=== PATIENT | female | born 1975 | race Caucasian/White ===

== ENCOUNTER 2022-07-29 12:59 | Emergency (ER) | payer OTHER, SELFPAY ==
--- NOTE | ~2022-07-29 | XR_ITS ---
EXAMINATION: XR chest 2V DATE: 07/29/2022 13:33 INDICATION: Cough. TECHNIQUE: Frontal and lateral views of the chest were obtained. COMPARISON: None. FINDINGS: The chest demonstrates clear lungs without pneumonia, pleural effusion, or pneumothorax. Th e heart size is normal. Surgical clips in the right upper quadrant are likely from cholecystectomy. IMPRESSION: 1. No acute cardiopulmonary disease. Reviewed, dictated and finalized at location A. [employer]
[2022-07-29 13:09] VITALS: BP 144/76; PULSE 94; RESP 16; TEMP 36.5; O2SAT 98
--- NOTE | 2022-07-29 13:26 | ED.URI ---
HPI - URI/Sore Throat General Chief Complaint: Upper Respiratory Infection Stated Complaint: cold Time Seen by Provider: 07/29/22 13:26 Source: patient and RN notes reviewed Mode of arrival: ambulatory Limitations: no limitations History of Present Illness HPI Narrative: 47-year-old female presented for complaint of cough for 1 week and chest congestion worsening last night. Reports temperature was 99.4?. She feels shortness of breath with exertion. She denies chest pain, palpitations, nausea, vomiting diarrhea, fevers or chills. She endorses sick contacts. She has not taking anything for symptoms. Patient states that she has a lung nodule but unsure the location. She is a former smoker. MD elicited complaint: cough Related Data Home Medications Medication Instructions Recorded Confirmed amlodipine 5 mg tablet 5 mg PO DAILY 07/29/22 07/29/22 aspirin 81 mg chewable tablet 81 mg PO DAILY 07/29/22 07/29/22 atorvastatin 40 mg tablet 40 mg PO DAILY 07/29/22 07/29/22 ezetimibe 10 mg tablet 10 mg PO DAILY 07/29/22 07/29/22 metformin 500 mg tablet 500 mg PO BID 07/29/22 07/29/22 metoprolol tartrate 25 mg tablet 25 mg PO BID 07/29/22 07/29/22 pantoprazole 40 mg tablet,delayed 40 mg PO DAILY 07/29/22 07/29/22 release Allergies Allergy/AdvReac Type Severity Reaction Status Date / Time acetaminophen [From NyQuil] Allergy Unknown Hives Verified 07/29/22 13:28 dextromethorphan Allergy Unknown Hives Verified 07/29/22 13:28 [From NyQuil] doxylamine [From NyQuil] Allergy Unknown Hives Verified 07/29/22 13:28 pseudoephedrine [From NyQuil] Allergy Unknown Hives Verified 07/29/22 13:28 Review of Systems Review of Systems: per HPI Exam Narrative: GENERAL: Ill-appearing, nontoxic EYES: PERRLA, conjunctivae clear ENT: Mucous membranes moist. TMs pearly scales with dull light reflex bilaterally; no tragal tenderness. Oropharynx erythematous without lesions or exudate CHEST: Clear to auscultation, breath sounds equal. No wheezing, rhonchi, rales, or stridor. No respiratory distress, speaks in full sentences. HEART: Regular rate and rhythm. No murmur heard. SKIN: Warm, dry, no rash. NEURO: Alert and oriented x3. PSYCH: Normal mood and affect Course Course Emergency Course: Patient is aware of diagnosis, understands and agrees to treatment plan. Anticipatory guidance given. Patient agrees to follow-up as directed and is aware of reasons to seek care at the emergency department. Portions of this record may have been created with voice recognition software Level of Care: Express Care Visit Vital Signs Vital signs: Vital Signs Temperature 97.7 F 07/29/22 13:09 Pulse Rate 94 07/29/22 13:09 Respiratory Rate 16 07/29/22 13:09 Blood Pressure 144/76 H 07/29/22 13:09 Pulse Oximetry 98 07/29/22 13:09 Oxygen Delivery Room Air 07/29/22 13:09 Temperature 97.7 F 07/29/22 13:09 Pulse Rate 94 07/29/22 13:09 Respiratory Rate 16 07/29/22 13:09 Blood Pressure 144/76 H 07/29/22 13:09 Pulse Oximetry 98 07/29/22 13:09 Oxygen Delivery Room Air 07/29/22 13:09 reviewed MDM - URI/Sore Throat MDM Narrative Medical decision making narrative: Results of chest x-ray reviewed with patient. Symptoms present x1 week. Advised supportive measures and signs/symptoms to go to the ER. Pt is appropriate for outpt treatment and f/u. Differential Diagnosis Differential diagnosis: Likely upper respiratory infection, sinusitis and viral infection Imaging Data Radiologist's impression: Patient: Angeles Chung : 1975 MR#: [id number] Age/Sex: 47 / F Acct:[id number] Loc: [facility]? ? ADM Date: 07/29/22Attending Dr: Ordering Physician: Abbie Porter APRN Date of Service: 07/29/22 Procedure(s): XR chest 2V Accession Number(s): [id number] cc: Abbie Porter APRN; Shruthi, Nav Craft MD~ EXAMINATION: XR chest 2V DATE: 07/29/2022 13:33 INDICATION: Cough. TECHNIQUE
== END 2022-07-29 13:53 | disposition home or self-care (01) ==
PROVIDERS: Emergency Provider Nurse Practitioner Family; PCP Internal Medicine
DX: J06.9 Acute upper respiratory infection, unspecified (principal); Z87.891 Personal history of nicotine dependence; Z79.82 Long term (current) use of aspirin
CPT/HCPCS: 71046; 99213; G0463

== ENCOUNTER 2025-02-01 17:42 | Emergency (ER) | payer OTHER, SELFPAY ==
[2025-02-01 17:44] VITALS: BP 161/88; PULSE 87; RESP 20; TEMP 36.6; O2SAT 100
--- OUTSIDE RECORDS SUMMARY | 2025-02-01 17:44 | XMS_ITS | Encounter Summary ---
Author Organization [facility] Address [address] [facility] [place] [address] Phone Care Team Providers Care Electronic Court Recorder Name Role Phone Nav Hawkins MD Primary Care Provider [phone] Phillip Sampson MD Unavailable Vivien Wilson MD Unavailable Shefali Rouse APRN, CNP Unavailable [phone] Lencho Vee MD Unavailable [phone] Reason for Visit * Reason Onset Date Comments Ear Pain 02/01/2025 Encounter Details Date Type Department Care Team (Late st Contact Info) Description 02/01/2025 Nurse Triage [facility] [address] [place] [address] Nav Hawkins MD [address] [address] Ear Pain Social History Tobacco Use Types Packs/Day Years Used Date Smoking Tobacco: Former Cigarettes 0.5 25 0 04/20/1991 - 04/20/2016 Smokeless Tobacco: Never Alcohol Use Standard Drinks/Week Comments No 0 (1 standard drink = 0.6 oz pur e alcohol) [facility] Utilities Answer Date Recorded In the past 12 months has th e electric, gas, oil, or water company threatened to shut off services in your home? No 11/03/2024 Social Connection and Isolation Panel Answer Date Recorded In a typical week, how many times do you talk on the phone with family, friends, or neighbors? More than three times a week 11/03/2024 How often do you get togethe r with friends or relatives? Twice a week 11/03/2024 How often do you attend chur or druze services? More than 4 times per year 11/03/2024 Do you belong to any clubs o r organizations such as episcopal groups, unions, fraternal or athletic groups, or school groups? Yes 11/03/2024 How often do you attend meet ings of the clubs or organizations you belong to? More than 4 times per year 11/03/2024 Are you , , di vorced, , never , or living with a partner? 11/03/2024 AUDIT-C Answer Date Recorded Q1: How often do you have a drink containing alcohol? Never 11/03/2024 Q2: How many drinks containi ng alcohol do you have on a typical day when you are drinking? Patient does not drink Q3: How often do you have si x or more drinks on one occasion? Never 11/03/2024 Overall Financial Resource Strain (CARDIA) Answe r Date Recorded How hard is it for you to pa y for the very basics like food, housing, medical care, and heating? Not very hard 11/03/2024 PHQ-2 Answer Date Recorded Total Score - Questions 1-9 0 03/28 [facility]ational Stress Questionnaire Answer Date Recorded Do you feel stress - tense, restless, nervous, or anxious, or unable to sleep at night because your mind is troubled all the time - these days? Only a little 11/03/2024 Exercise Vital Sign Answer Date Recorde d On average, how many days pe r week do you engage in moderate to strenuous exercise (like a brisk walk)? 3 days 11/03/2024 On average, how many minutes do you engage in exercise at this level? 20 min 11/03/2024 Hunger Vital Sign Answer Date Recorded Within the past 12 months, y ou worried that your food would run out before you got the money to buy more. Never true 11/04/19 25 Within the past 12 months, t he food you bought just didn't last and you didn't have money to get more. Never true 11/03/2024 PRAPARE - Transportation Answer Date Re corded In the past 12 months, has l ack of transportation kept you from medical appointments or from getting medications? No 10/25 In the past 12 months, has l ack of transportation kept you from meetings, work, or from getting things needed for daily living? No 11/03/2024 Housing Stability Vital Sign Answer Geraldo e Recorded In the last 12 months, was t here a time when you were not able to pay the mortgage or rent on time? No 10/22/2023 In the last 12 months, how many places have you lived? 1 10/22/2023 In the last 12 months, was t here a time when you did not have a steady place to sleep or slept in a detention (including now)? No 10/22/2023 Housing Stability Vital Sign Answer Geraldo e Recorded In the last 12 months, was t here a time when you were not able to pay the mortgage or rent on time? No 11/03/2024 In the past 12 months, how m any times have you moved where you were living? 0 11/03/2024 At any time in the past 12 m [facility], were you homeless or living in a detention (including now)? No 11/03/2024 Education Answer Date Recorded What is the highest level of school you have completed or the highest degree you have received? Bachelor's degree (e.g., BA, AB, BS) 04/24/2020 Sexually Active Control Partners Comments Yes Comments No Sex and Gender Information Value Date Recorded Sex Assigned at Female 03/10/2023 8:42 AM CDT Legal Sex Female 10:52 PM CDT Gender Identity Female 03/10/2023 8:42 AM CDT Sexual Orientation Straight 11/14/2024 1: 15 PM CDT documented as of this encounter Miscellaneous Notes * Telephone Encounter - Lilia Newman RN - 02/01/2025 4:21 PM CDT SITUATION: Right Ear Pain, Facial Swelling BACKGROUND: Patients contacting PCP office. Person contacting is listed on current personal assisted sales representative designee form on file. ASSESSMENT: Symptom Description / Location: Patient was seen in the emergency department for an ear infection yesterday Has had three doses of the medicaiton and that the right side of their face is getting to swell down to their throat and feels tight. Patient denies any shortness of breath or difficulty breathing States that the swelling is only on the right side, not the entire face. Fever: Denies fever. RECOMMENDATION: Go to office now. Patient agreeable to this recommendation but no available appointments in primarycare providers office. Patients and patient agreeable to go to local urgent care or prompt care to be evaluated. Pharmacy, Allergies, and Medications verified. Discussed utilizing [employer] to: send messages to providers - See care advice and disposition for Guideline. First positive answer recorded, all responses to prior questions were negative. If symptoms increase, change or if new symptoms develop, call your health care provider or call back. Recommendations were based on caller information and is not a diagnosis. Verified and reviewed all triage information with caller. documented in this encounter Plan of Treatment Upcoming Encounters Date Type Department Care Team (Late st Contact Info) Description 04/11/2025 8:00 AM CDT Office Visit [facility] - Endocr[facility]ology - [place] [address] [place] [phone] Vivien Wilson MD #[address] [address] 04/28/2025 7:20 AM CDT Lab [facility] #[address] [address] [facility]/Ancillary 05/05/2025 8:45 AM CDT Office Visit [facility] Family [facility] [place] [address] [facility] [place] [address] Nav Hawkins MD [facility] [address] [place] [address] 05/18/2025 10:00 AM CDT Office Visit [facility] - Pulmonology & Sleep Medicine [facility] [address] [place] [phone] Phillip Sampson MD [address] [place] [address] documented as of this encounter Visit Diagnoses Not on filedocumented in this encounter Additional Health Concerns Assessment Noted Time PHQ-9 Depression Total Score: 0 04/22/20 24 8:39 AM CDT documented as of this encounter Care Teams Electronic Court Recorder Relationship Specialty Start Date End Date Nav Hawkins MD [facility] [address] PCP - General Family Medicine 09/18/16 Phillip Sampson MD #2 [place] [address] Consulting Physician Pulmonary Disease 10/17/21 Vivien Wilson MD #2 [facility] [address] [place] [phone] Consulting Physician Endocrinology 02/17/22 Shefali Rouse APRN, SPIRITUAL MINISTER #2 [facility] [address] [place] [address] Nurse Practitioner Advanced Practice Nurse 04/30/22 Lencho Vee MD #[address] [place] [address] Consulting Physician Obstetrics & Gynecology 01/25/25 documented as of this encounter
--- OUTSIDE RECORDS SUMMARY | 2025-02-01 17:44 | XMS_ITS | Clinical Summary ---
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 Gender Identity Not on file Sexual Orientation Not on file Plan of Treatment Health Maintenance Due Date Last Done Comments Cervical Cancer Screening Pa p Smear (Age 30 to 64) Every 3 Years 1973 Colorectal Cancer Screening Colonoscopy (10 Years) 1973 Annual Physical 1976 Hepatitis C 1991 DTaP, Tdap and Td Vaccines ( 1 - Tdap) 1992 Hepatitis B Vaccines (1 of 3 - 19+ 3-dose series) 1992 Cervical Cancer Screening Pa p with HPV Testing (Age 30 to 64) Every 5 Years 2003 Cervical Cancer Screening with HPV 2003 Mammogram Screening 2013 Pneumococcal Vaccine: 50+ Ye ars (1 of 1 - PCV) 2023 Zoster Vaccines (1 of 2) 2023 COVID-19 Vaccine (2023-2 5 season) 2024 Meningococcal B Vaccine Aged Out No l onger eligible based on patient's age to complete this topic Meningococcal Vaccine Aged Out No celina giorgi eligible based on patient's age to complete this topic RSV Immunizations Under 20 Months Aged Out No longer eligible based on patient's age to complete this topic
--- OUTSIDE RECORDS SUMMARY | 2025-02-01 17:44 | XMS_ITS | Encounter Summary ---
Author Organization 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
--- OUTSIDE RECORDS SUMMARY | 2025-02-01 17:44 | XMS_ITS | Encounter Summary ---
Author Organization [facility] Address [address] [place] [address] Phone Care Team Providers Care Microsoft Dynamics Consultant Name Role Phone Nav Hawkins MD Primary Care Provider [phone] Phillip Sampson MD Unavailable Vivien Wilson MD Unavailable Shefali Rouse APRN, CNP Unavailable [phone] Lencho Vee MD Unavailable [phone] Reason for Visit * Reason Comments Ear Pain Encounter Details Date Type Department Care Team (Late st Contact Info) Description 01/31/2025 6:01 AM CDT - 01/31/2025 6:32 AM CDT Emergency [facility] Emergency [address] [place] [address] Chris Heard MD [address] [place] [address] Acute swimmer's ear of right side Discharge Disposition: Discharged to home or Selfcare Social History Tobacco Use Types Packs/Day Years Used Date Smoking Tobacco: Former Cigarettes 0.5 25 0 04/20/1991 - 04/20/2016 Smokeless Tobacco: Never Alcohol Use Standard Drinks/Week Comments No 0 (1 standard drink = 0.6 oz pur e alcohol) [facility] Utilities Answer Date Recorded In the past 12 months has e electric, gas, oil, or water company [...] 11/03/2024 How often do you attend chur ch or restorationist services? More than 4 times per year 11/03/2024 Do you belong to any clubs o r organizations such as orthodoxy groups, unions, fraternal or athletic groups, or [...] Total Score - Questions 1-9 0 03/28 [place] [employer] [facility] Health - Occupational Stress Questionnaire Answer [...] place to sleep or slept in a nursing home (including now)? No 10/22/2023 Housing Stability Vital Sign Answer Geraldo e Recorded In the last 12 months, was t here a time when you were not able to pay the mortgage or rent on time? No 11/03/2024 In the past 12 months, how m any times have you moved where you were living? 0 11/03/2024 At any time in the past 12 m [facility], were you homeless or living in a nursing home (including now)? No 11/03/2024 Education Answer Date [...] PM CDT documented as of this encounter Last Filed Vital Signs Vital Sign Reading Time Taken Comments Blood Pressure 175/72 01/31/2025 6:06 AM CDT Pulse 67 01/31/2025 6:06 AM CDT Temperature 36.4 C (97.5 F) 01/31/2025 6:06 AM CDT Respiratory Rate 16 01/31/2025 6:06 AM CDT Oxygen Saturation 98% 01/31/2025 6:06 AM CDT Inhaled Oxygen Concentration - - Weight 88.5 kg (195 lb) 01/31/2025 6:06 AM CDT Height 152.4 cm (5') 01/31/2025 6:06 AM CDT Body Mass Index 38.08 01/31/2025 6:06 AM CDT documented in this encounter Discharge Instructions * Discharge Instructions* Chris Heard MD - 01/31/2025 6:23 AM CDT Use the antibiotic eardrops as prescribed the right ear until the pain has been resolved for at least 2 days. Follow-up with your primary care doctor the next available appointment. documented in this encounter Medications at Time of Discharge amLODIPine (NORVASC) 5 MG Tablet Take 1 Tablet by mouth every morning. 90 Tablet 3 11/03/2024 APPLE CIDER VINEGAR PO Take by mouth nightly. aspirin 81 MG Chewable Tablet Take 1 Tab by mouth every morning. 12/28/2017 atorvastatin (LIPITOR) 40 MG Tablet TAKE 1 TABLET BY MOUTH EVERY DAY 90 Tablet 1 01/07/2024 Benzonatate 200 MG Capsule 07/29/2022 Cholecalciferol (VITAMIN D3 PO) Take by mouth nightly. ciprofloxacin-de xamethasone (CIPRODEX) 0.3-0.1 % Suspension Place 4 Drops in right ear every 12 hours for 7 days. 7.5 mL 01/31/2025 02/07/2025 CRANBERRY PO Take by mouth. Cyanocobalamin (VITAMIN B12 PO) Take by mouth nightly. ezetimibe (ZETIA) 10 MG Tablet Take 10 mg by mouth every morning. Homeopathic Products (ZICAM COLD REMEDY PO) Take by mouth nightly. Insulin Pen Needle 32G X 4 MM Misc 1 time a day 100 Each 3 01/06/2025 liraglutide (Victoza) 18 MG/3ML Solution Pen-injector 0.6 mg SC daily for 1 week, 1.2 mg SC daily for 1 week, and increase it to 1.8 mg SC daily 27 mL 1 01/06/2025 metFORMIN (GLUCOPHAGE) 500 MG Tablet TAKE 1 TABLET BY MOUTH TWICE A DAY WITH MEALS 180 Tablet 1 10/20/2023 mometasone (ELOCON) 0.1 % Solution APPLY DAILY TO HANDS 60 mL 12/20/2024 Multiple Vitamins-Calcium (ONE-A-DAY WOMENS FORMULA PO) Take by mouth nightly. pantoprazole (PROTONIX) 40 MG Tablet Delayed ResponseIndicati ons:Encounter for immunization,Chr onic fatigue TAKE 1 TABLET BY MOUTH EVERY DAY 30 Tablet 3 10/18/2023 Probiotic Product (PROBIOTIC DAILY PO) Take by mouth nightly. documented as of this encounter ED Notes * Guanako Johansen RN - 01/31/2025 6:31 AM CDT Patient discharged. Discharge instructions and patient educational material reviewed with patient; questions and concerns addressed; patient verbalizes understanding, using teach back. Patient was given 1 prescription. Patient discharged per ambulatory mode with self as responsible alliance party. No distress noted at this time. * Chris Heard MD - 01/31/2025 6:23 AM CDT Chief Complaint Patient presents with Ear Pain 1-year-old female presents with right ear pain x 1 day. Denies any drainage. No fevers. No URI symptoms. Ear Pain Current Medications[1] Allergies[2] Past Medical History Positives Diagnosis Date Adenomatous colon polyp CAD (coronary artery disease) Stent x3. HLD (hyperlipidemia) HTN (hypertension) Lung nodule Obesity FAYE (obstructive sleep apnea) Pancreatitis 03/2020 Recurrent Past Surgical History[3] Social History Socioeconomic History Marital status: Spouse name: Not on file Number of children: Not on file Years of education: Not on file Highest education level: Bachelor's degree (e.g., BA, AB, BS) Occupational History Not on file Tobacco Use Smoking status: Former Current packs/day: 0.00 Average packs/day: 0.5 packs/day for 25.0 years (12.5 ttl pk-yrs) Types: Cigarettes Start date: 04/20/1991 Quit date: 04/20/2016 Years since quittin.7 Smokeless tobacco: Never Vaping Use Vaping status: Never Used Substance and Sexual Activity Alcohol use: No Drug use: No Sexual activity: Yes Other Topics Concern Not on file Social History Narrative Not on file Social Drivers of Health Financial Resource Needs: Low Risk (11/03/2024) Overall Financial Resource Strain (CARDIA) Difficulty of Paying Living Expenses: Not very hard Food Insecurity Needs: No Food Insecurity (11/03/2024) Hunger Vital Sign Worried About Running Out of Food in the Last Year: Never true Ran Out of Food in the Last Year: Never true Transportation Needs: No Transportation Needs (11/03/2024) PRAPARE - Transportation Lack of Transportation (Medical): No Lack of Transportation (Non-Medical): No Physical Activity: Insufficiently Active (11/03/2024) Exercise Vital Sign Days of Exercise per Week: 3 days Minutes of Exercise per Session: 20 min Stress: No Stress Concern Present (11/03/2024) [place] [employer] Health - Occupational Stress Questionnaire Feeling of Stress : Only a little Social Integration: Socially Integrated (11/03/2024) Social Connection and Isolation Panel Frequency of Communication with Friends and Family: More than three times a week Frequency of Social Gatherings with Friends and Family: Twice a week Attends Advent Services: More than 4 times per year Active Member of Clubs or Organizations: Yes Attends Club or Organization Meetings: More than 4 times per year Marital Status: Personal Safety: Low Risk (01/31/2025) Personal Safety Feels Unsafe at Home or Work/School: no Feels Threatened by Someone: no Does Anyone Try to Keep You From Having Contact with Others or Doing Things Outside Your Home?: no Physical Signs of Abuse Present: no Housing Stability: Low Risk (11/03/2024) Housing Stability Vital Sign Unable to Pay for Housing in the Last Year: No Number of Times Moved in the Last Year: 0 Homeless in the Last Year: No BP 175/72 Pulse 67 Temp 97.5 ??F (36.4 ??C) (Tympanic) Resp 16 Ht 5' (1.524 m) Wt 195 lb (88.5 kg) LMP (LMP Unknown) SpO2 98% BMI 38.08 kg/m?? Review of Systems All other systems reviewed and are negative. Physical Exam Constitutional: Appearance: Normal appearance. She is not ill-appearing or toxic-appearing. HENT: Head: Normocephalic and atraumatic. Ears: Comments: External ear is painful to any manipulation. There is some erythema and mild swelling of the canal. This prevents visualization of the TM. No mastoid tenderness. Nose: Nose normal. Mouth/Throat: Mouth: Mucous membranes are moist. Eyes: General: No scleral icterus. Conjunctiva/sclera: Conjunctivae normal. Pulmonary: Effort: Pulmonary effort is normal. Breath sounds: No stridor. Abdominal: General: Abdomen is flat. There is no distension. Musculoskeletal: General: No swelling or deformity. Normal range of motion. Cervical back: Normal range of motion. Skin: Findings: No rash. Neurological: General: No focal deficit present. Psychiatric: Behavior: Behavior normal. Procedures No results found for this or any previous visit (from the past 24 hours). Imaging Results None Medical Decision Making Uncomplicated otitis externa. Treatment plans for ciprofloxacin eardrops. Patient stable for discharge. Clinical Impression 1. Acute swimmer's ear of right side Disposition: Discharge [1] No current facility-administered medications for this encounter. Current Outpatient Medications Medication Sig Dispense Refill amLODIPine (NORVASC) 5 MG Tablet Take 1 Tablet by mouth every morning. 90 Tablet 3 APPLE CIDER VINEGAR PO Take by mouth nightly. aspirin 81 MG Chewable Tablet Take 1 Tab by mouth every morning. atorvastatin (LIPITOR) 40 MG Tablet TAKE 1 TABLET BY MOUTH EVERY DAY 90 Tablet 1 Benzonatate 200 MG Capsule Cholecalciferol (VITAMIN D3 PO) Take by mouth nightly. ciprofloxacin-dexamethasone (CIPRODEX) 0.3-0.1 % Suspension Place 4 Drops in right ear every 12 hours for 7 days. 7.5 mL 0 CRANBERRY PO Take by mouth. Cyanocobalamin (VITAMIN B12 PO) Take by mouth nightly. ezetimibe (ZETIA) 10 MG Tablet Take 10 mg by mouth every morning. Homeopathic Products (ZICAM COLD REMEDY PO) Take by mouth nightly. Insulin Pen Needle 32G X 4 MM Misc 1 time a day 100 Each 3 liraglutide (Victoza) 18 MG/3ML Solution Pen-injector 0.6 mg SC daily for 1 week, 1.2 mg SC daily for 1 week, and increase it to 1.8 mg SC daily 27 mL 1 metFORMIN (GLUCOPHAGE) 500 MG Tablet TAKE 1 TABLET BY MOUTH TWICE A DAY WITH MEALS (Patient not taking: Reported on 01/06/2025) 180 Tablet 1 mometasone (ELOCON) 0.1 % Solution APPLY DAILY TO HANDS 60 mL 0 Multiple Vitamins-Calcium (ONE-A-DAY WOMENS FORMULA PO) Take by mouth nightly. pantoprazole (PROTONIX) 40 MG Tablet Delayed Response TAKE 1 TABLET BY MOUTH EVERY DAY 30 Tablet 3 Probiotic Product (PROBIOTIC DAILY PO) Take by mouth nightly. [2] Allergies Allergen Reactions Lisinopril Other (see Comments) cough Nyquil Severe Cold-Flu [Widkdqxgw-Wgxvwfpvgo-Zn-Apap] Hives, Shortness of Breath and Vomiting [3] Past Surgical History: Procedure Laterality Date SECTION CHOLECYSTECTOMY COLONOSCOPY N/A 07/23/2020 Procedure: COLONOSCOPY-CECAL POLYP (COLD SNARE); Surgeon: Jakub Pitts DO; Location: [facility]; Service: Gastroenterology CORONARY ANGIOPLASTY WITH STENT PLACEMENT 2018 x3 ENDOSCOPIC ULTRASOUND OTHER SURGICAL HISTORY left eye surgery * Shirley Peralta RN - 01/31/2025 6:08 AM CDT Patient ambulatory to [facility] c/o right ear pain starting yesterday. States she is concerned for swimmers ear. VSS documented in this encounter Miscellaneous Notes * PatientPass Patient Instructions - Chris Heard MD - 01/31/2025 6:23 AM CDT Images from the original note were not included. Patient Education Table of Contents Otitis Externa To view videos and all your education online visit, [email or web address] or scan this QR code with your smartphone. Access to this content will in one year. Otitis Externa Otitis externa is an infection of the outer ear canal. The outer ear canal is the area between the outside of the ear and the eardrum. Otitis externa is sometimes called swimmer's ear. What are the causes? Common causes of this condition include: Swimming in dirty water. Moisture in the ear. An injury to the inside of the ear. An object stuck in the ear. A cut or scrape on the outside of the ear or in the ear canal. What increases the risk? You are more likely to get this condition if you go swimming often. What are the signs or symptoms? Itching in the ear. This is often the first symptom. Swelling of the ear. Redness in the ear. Ear pain. The pain may get worse when you pull on your ear. Pus coming from the ear. How is this treated? This condition may be treated with: Antibiotic ear drops. These are often given for 10?14 days. Medicines to reduce itching and swelling. Follow these instructions at home: If you were prescribed antibiotic ear drops, use them as told by your doctor. Do not stop using them even if you start to feel better. Take zrcf-vfh-tfztsvb and prescription medicines only as told by your doctor. Avoid getting water in your ears as told by your doctor. You may be told to avoid swimming or watersports for a few days. Keep all follow-up visits. How is this prevented? Keep your ears dry. Use the corner of a towel to dry your ears after you swim or bathe. Try not to scratch or put things in your ear. Doing these things makes it easier for germs to grow in your ear. Avoid swimming in lakes, dirty water, or swimming pools that may not have the right amount of a chemical called chlorine. Contact a doctor if: You have a fever. Your ear is still red, swollen, or painful after 3 days. You still have pus coming from your ear after 3 days. Your redness, swelling, or pain gets worse. You have a very bad headache. Get help right away if: You have redness, swelling, and pain or tenderness behind your ear. Summary Otitis externa is an infection of the outer ear canal. Symptoms include pain, redness, and swelling of the ear. If you were prescribed antibiotic ear drops, use them as told by your doctor. Do not stop using them even if you start to feel better. Try not to scratch or put things in your ear. This information is not intended to replace advice given to you by your health care provider. Make sure you discuss any questions you have with your health care provider. Document Released: 2008-12-29 Document Updated: 2021-09-25 Document Reviewed: 2021-09-25 Elsevier Patient Education ? 2024 [employer] documented in this encounter Plan of Treatment Upcoming Encounters Date Type Department Care Team (Late st Contact Info) Description 04/11/2025 8:00 AM CDT Office Visit [facility] - Endocrinology - [place] [address] [place] [address] Vivien Wilson MD #[address] [address] 04/28/2025 7:20 AM CDT Lab [facility] #2 [facility] [address] [place] [address] [facility] Lab/Ancillary 05/05/2025 8:45 AM CDT Office Visit [facility] Medical [facility] - Family Medicine - [place] #2 [place] [address] Nav [place] MD #2 [facility] [address] [place] [address] 05/18/2025 10:00 AM CDT Office Visit [facility] Medical [facility] - Pulmonology & Sleep Medicine - [place] [address] [place] [address] Phillip Sampson MD [address] [place] [address] documented as of this encounter Visit Diagnoses Diagnosis Acute swimmer's ear of right side- Primary documented in this encounter Administered Medications Inactive Administered Medications - up to 3 most recent administrations Medication Order MAR Action Action Date Dose Rate Site ibuprofen (MOTRIN) tablet 600 mg 600 mg, Oral, ONCE, 1 dose, On Thu01/31/25 at 0700 Given 01/31/2025 6:29 AM CDT 600 mg documented in this encounter Active and Recently Administered Medications Times are shown in CDT. Scheduled Medication Order 01/29/2025 01/30/2025 01/31/2025 ibuprofen (MOTRIN) tablet 600 mg (COMPLETED) 600 mg, Oral, ONCE, 1 dose, On Thu01/31/25 at 0700 0629 (Given - Provid er: Guanako Johansen RN) documented in this encounter Additional Health Concerns Assessment Noted Time PHQ-9 Depression Total Score: 0 04/22/20 24 8:39 AM CDT documented as of this encounter Care Teams Microsoft Dynamics Consultant Relationship Specialty Start Date End Date Nav [place] MD #2 [facility] [address] [place] [address] PCP - General Family Medicine 09/18/16 Phillip Sampson MD [address] [place] [phone] Consulting Physician Pulmonary Disease 10/17/21 Vivien Wilson MD #2 [facility] [address] [place] [phone] Consulting Physician Endocrinology 02/17/22 Shefali Rouse APRN, LOSS PREVENTION REPRESENTATIVE #2 [facility] [address] [place] [address] Nurse Practitioner Advanced Practice Nurse 04/30/22 Lencho Vee MD [address] [place] [phone] Consulting Physician Obstetrics & Gynecology 01/25/25 documented as of this encounter
--- OUTSIDE RECORDS SUMMARY | 2025-02-01 17:44 | XMS_ITS | Encounter Summary ---
Author Organization [facility] Address [address] [place] [address] Phone Care Team Providers Care Fabrication Operator Name Role Phone Nav [place] MD Primary Care Provider Phillip Sampson MD Unavailable Vivien [place] MD Unavailable Shefali Rouse APRN, CNP Unavailable [phone] Lencho Vee MD Unavailable [phone] Reason for Visit * Reason Comments Medication Refill Encounter Details Date Type Department Care Team (Late st Contact Info) Description 07/19/2020 [facility] [address] [place] [address] Nav [place] MD #[address] [address] Medication Refill Social History Tobacco Use Types Packs/Day Years Used Date Smoking Tobacco: Former Cigarettes 0.5 25 0 04/20/1991 - 04/20/2016 Smokeless Tobacco: Never Alcohol Use Standard Drinks/Week Comments No 0 (1 standard drink = 0.6 oz pur e alcohol) PHQ-2 Answer Date Recorded PHQ-2 Score 0 03/24/2019 Education Answer Date Recorded What is the highest level of school you have completed or the highest degree you have received? Bachelor's degree (e.g., BA, AB, BS) 04/24/2020 Comments No Sex and Gender Information Value Date Recorded Sex Assigned at Female 03/10/2023 8:42 AM CDT Legal Sex Female 10:52 PM CDT Gender Identity Female 03/10/2023 8:42 AM CDT Sexual Orientation Straight 11/14/2024 1: 15 PM CDT COVID-19 Exposure Response Date Recorded In the last month, have you been in contact with someone who was confirmed or suspected to have Coronavirus / COVID-19? No / Unsure 07/21/2020 8:29 AM SHIPPING TECHNICIAN documented as of this encounter Miscellaneous Notes * Telephone Encounter - Nav [place] MD - 07/22/2020 9:03 AM CST Prescription approved. Please call in PING TECHNICIAN * Telephone Encounter - Vee Ortiz RN - 07/21/2020 1:23 PM CST Medication failed the protocol, provider to review and approve the medication order if appropriate. Requested Prescriptions Pending Prescriptions Disp Refills fluticasone (FLONASE) 50 MCG/ACT Suspension [Pharmacy Med Name: FLUTICASONE PROP 50 MCG SPRAY] 0 Sig: SPRAY 2 SPRAYS INTO EACH NOSTRIL EVERY DAY Ear, Nose, and Throat: Nasal Preparations - Corticosteroids Passed - 07/19/2020 11:38 AM Passed - Valid encounter within last 12 months Past Office Visits Recent Outpatient Visits 2 months ago Acute pancreatitis, unspecified complication status, unspecified pancreatitis type [facility] - Nav Gaitan MD 9 months ago Encounter for immunization [facility] - Kassi Núñez APN, CNP 10 months ago BPPV (benign paroxysmal positional vertigo), left [facility] - Kassi Núñez APN, CNP 1 year ago Neck pain [facility] - Nav Gaitan MD 1 year ago [facility] Kassi Núñez APN, APPLICATION SYSTEMS ENGINEER Upcoming Appointments Future Appointments In 2 weeks Phillip Sampson [facility] 5 months Vivien [place] MD [facility] Medical [facility] Endocrinology [facility] SLIP FEEDER - Recent and Past Visits Recent Visits Date Type Provider Dept 04/24/20 Office Visit Nav [place] MD [facility] 10/11/19 Office Visit Kassi Dasilva APN, CHUCK [facility] 09/09/19 Office Visit Kassi Dasilva APN, CHUCK [facility] Showing recent visits within past 460 days with a meds authorizing provider and meeting all other requirements Future Appointments No visits were found meeting these conditions. Showing future appointments within next 90 days with a meds authorizing provider and meeting all other requirements PING TECHNICIAN documented in this encounter Plan of Treatment Upcoming Encounters Date Type Department Care Team (Late st Contact Info) Description 04/11/2025 8:00 AM CDT Office Visit [facility] Medical [facility] - Endocrinology - [place] [address] [place] [address] Vivien [place] MD #[address] [address] 04/28/2025 7:20 AM CDT Lab [facility] - [facility] #2 [facility] [address] [place] [address] [facility] [place] Lab/Ancillary 05/05/2025 8:45 AM CDT Office Visit [facility] Medical [facility] - Family Medicine - [place] #[address] [place] [address] Nav [place] MD #2 [facility] [address] [place] [address] 05/18/2025 10:00 AM CDT Office Visit [facility] Medical [facility] - Pulmonology & Sleep Medicine - [place] [address] [place] [address] Phillip Sampson MD #[address] [place] [address] documented as of this encounter Visit Diagnoses Diagnosis Dysfunction of both eustachian tubes Dysfunction of Eustachian tube documented in this encounter Additional Health Concerns Infection Onset Date Last Indicated Resolved Time COVID - 19 05/14/2022 05/14/2022 05/24/2022 12:1 6 AM CDT Assessment Noted Time PHQ-9 Depression Total Score: 0 09/09/19 20 9:02 AM SHIPPING TECHNICIAN documented as of this encounter Care Teams Fabrication Operator Relationship Specialty Start Date End Date Nav [place] MD #2 [facility] [address] [place] [address] PCP - General Family Medicine 09/18/16 Phillip Sampson MD #[address] [place] [address] Consulting Physician Pulmonary Disease 10/17/21 Vivien [place] MD #2 [facility] [address] [place] [phone] Consulting Physician Endocrinology 02/17/22 Shefali Rouse APRN, APPLICATION SYSTEMS ENGINEER #2 [facility] [address] [place] [address] Nurse Practitioner Advanced Practice Nurse 04/30/22 Lencho Vee MD #[address] [place] [address] Consulting Physician Obstetrics & Gynecology 01/25/25 documented as of this encounter
--- OUTSIDE RECORDS SUMMARY | 2025-02-01 17:44 | XMS_ITS | Clinical Summary ---
Author Organization [facility] Address [address] [place] [address] Phone Care Team Providers Care Barrel Raiser Name Role Phone Nav Hawkins MD Primary Care Provider [phone] Phillip Sampson MD Unavailable Vivien Wilson MD Unavailable Shefali Rouse APRN, BODILY INJURY ADJUSTER Unavailable [phone] Lencho Vee MD Unavailable [phone] Allergies Active Allergy Reactions Criticality Noted Date Comments Lisinopril Other (see Comments) 09/04/2017 cough Pqgkpiwmb-Wxsfgsrweb-As-Apa p Hives,Shortness of Breath,Vomiting 07/12/2016 Medications aspirin 81 MG Chewable Tablet Take 1 Tab by mouth every morning. 8 Active ezetimibe (ZETIA) 10 MG Tablet Take 10 mg by mouth every morning. Active Multiple Vitamins-Calci um (ONE-A-DAY WOMENS FORMULA PO) Take by mouth nightly. Active APPLE CIDER VINEGAR PO Take by mouth nightly. Active Cholecalcifero l (VITAMIN D3 PO) Take by mouth nightly. Active Cyanocobalamin (VITAMIN B12 PO) Take by mouth nightly. Active Homeopathic Products (ZICAM COLD REMEDY PO) Take by mouth nightly. Active Probiotic Product (PROBIOTIC DAILY PO) Take by mouth nightly. Active CRANBERRY PO Take by mouth. Ac tive Benzonatate 200 MG Capsule 3 Active pantoprazole (PROTONIX) 40 MG Tablet Delayed ResponseIndica tions:Encounte r for immunization,C hronic fatigue TAKE 1 TABLET BY MOUTH EVERY DAY 30 Tablet 3 4 Active metFORMIN (GLUCOPHAGE) 500 MG Tablet TAKE 1 TABLET BY MOUTH TWICE A DAY WITH MEALS 180 Tablet 1 4 Active Additional Information Patient not taking.Reported on 01/06/2025 atorvastatin (LIPITOR) 40 MG Tablet TAKE 1 TABLET BY MOUTH EVERY DAY 90 Tablet 1 4 Active amLODIPine (NORVASC) 5 MG Tablet Take 1 Tablet by mouth every morning. 90 Tablet 3 5 Active mometasone (ELOCON) 0.1 % Solution APPLY DAILY TO HANDS 60 mL 5 Active liraglutide (Victoza) 18 MG/3ML Solution Pen-injector 0.6 mg SC daily for 1 week, 1.2 mg SC daily for 1 week, and increase it to 1.8 mg SC daily 27 mL 1 5 Active Insulin Pen Needle 32G X 4 MM Misc 1 time a day 100 Each 3 5 Active ciprofloxacin- dexamethasone (CIPRODEX) 0.3-0.1 % Suspension Place 4 Drops in right ear every 12 hours for 7 days. 7.5 mL 5 025 Active Dulaglutide (Trulicity) 4.5 MG/0.5ML Solution Auto-injector 4.5 mg by Subcutaneous route once a week. 6 mL 1 4 025 Discontin ued(Formu sharon change) Active Problems Problem Noted Date Diagnosed Date Diabetes mellitus 03/10/2023 Nodule of lower lobe of left lung 08/09/2020 Acute recurrent pancreatitis 04/19/2020 Leukocytosis 04/19/2020 Hyponatremia 04/19/2020 Hypochloremia 04/19/2020 GERD (gastroesophageal reflux disease) 0 Hypertriglyceridemia 12/12/2019 FAYE (obstructive sleep apnea) 02/15/2019 Non morbid obesity 02/15/2019 Gastroenteritis 08/20/2018 Hyperglycemia 04/15/2018 Coronary artery disease invo lving [place] heart without angina pectoris 01/07/2018 Pure hypercholesterolemia 10/21/2017 Chronic gastritis without bleeding 06/26/2017 Rash 12/18/2016 Physical exam, annual (Adult) 09/18/2016 Breast cancer screening 09/18/2016 Abdominal pain 07/12/2016 Personal history of tobacco use 07/12/2016 Acute cystitis 07/12/2016 Hyperlipidemia HTN (hypertension) Coronary artery disease Resolved Problems Problem Noted Date Diagnosed Date Resolved Date Class 3 severe obesity due t o excess calories with serious comorbidity and body mass index (BMI) of 40.0 to 44.9 in adult 12/12/2019 High blood pressure 01/07/2018 05/23/20 24 Encounters Date Type Department Care Team Description 02/01/2025 Nurse Triage [facility] [address] [place] [address] Nav Hawkins MD Ear Pain 01/31/2025 2:30 PM CDT Office Visit [facility] - Obstetrics & Gynecology [facility] [address] [place] [address] Lencho Vee MD Encounter for well woman exam with routine gynecological exam (Primary Dx); Perimenopause Discharge Disposition: Discharged to home or Selfcare 01/31/2025 6:01 AM CDT - 01/31/2025 6:32 AM CDT Emergency [facility] Emergency [address] [place] [address] Chris Heard MD Acute swimmer's ear of right side Discharge Disposition: Discharged to home or Selfcare 01/31/2025 Travel 01/30/2025 Travel 01/06/2025 8:15 AM CDT Office Visit [facility] - Endocrinology [facility] [address] [place] [address] Vivien Wilson MD Type 2 diabetes mellitus with other specified complication, without long-term current use of insulin (Primary Dx); Class 2 severe obesity due to excess calories with serious comorbidity and body mass index (BMI) of 38.0 to 38.9 in adult (HCC); New medication added Discharge Disposition: Discharged to home or Selfcare 01/04/2025 Travel 12/19/2024 [facility] [place] [address] Nav Hawkins MD Medication Refill 12/15/2024 Results Follow-Up [facility] Pulmonology & Sleep Medicine [facility] [address] [place] [address] CHEST W/O CONTRAST 12/14/2024 Results Follow-Up [facility] [address] [place] [address] Nav Hawkins MD SISSY SCREENING BILATERAL DIGITAL W CAD W SADE 12/13/2024 8:00 AM CDT - 12/13/2024 11:59 PM CDT [facility] [address] [place] [address] Nav Hawkins MD Discharge Disposition: Discharged to home or Selfcare 12/12/2024 4:44 PM CDT - 12/12/2024 11:59 PM CDT [facility] [address] [place] [address] Phillip Sampson MD Discharge Disposition: Discharged to home or Selfcare 12/11/2024 Travel 11/15/2024 10:30 AM CDT Office Visit [facility] Pulmonology & Sleep Medicine [facility] [address] [place] [address] Phillip Sampson MD Nodule of lower lobe of left lung (Primary Dx); FAYE (obstructive sleep apnea); Primary hypertension; Non morbid obesity Discharge Disposition: Discharged to home or Selfcare 11/14/2024 Travel 11/03/2024 3:30 PM CDT Office Visit [facility] [address] [place] [address] Nav Hawkins MD Diabetes type 2, no ocular involvement (HCC) (Primary Dx); Coronary artery disease involving [place] heart without angina pectoris, unspecified vessel or lesion type; Pure hypercholesterolemia ; FAYE on CPAP; Primary hypertension; Screening for cervical cancer Discharge Disposition: Discharged to home or Selfcare 11/03/2024 Travel from Last 3 Months Immunizations Immunization Administration Dates Next Due TDAP Vaccine 10/11/2019 Family History Medical History Relation Name Comments Diabetes Father Heart Disease Father Hypertension Father Neuropathy Father Breast Cancer Maternal Grandmother Cancer Maternal Grandmother Lung an d uterine Heart Disease Maternal Grandmother Heart Surgery Maternal Grandmother Cancer Mother uterine Heart Disease Mother Heart Surgery Mother Hypertension Mother Relation Name Status Comments Father Alive Maternal Grandmother Mother Alive Social History Tobacco Use Types Packs/Day Years Used Date Smoking Tobacco: Former Cigarettes 0.5 25 0 04/20/1991 - 04/20/2016 Smokeless Tobacco: Never Tobacco Cessation:Counseling Given: Not Answered Alcohol Use Standard Drinks/Week Comments No 0 (1 standard drink = 0.6 oz pur e alcohol) [facility] Answer Date Recorded In the past 12 months has [employer], gas, oil, or water [employer] threatened to shut off services in your home? No 11/03/2024 Social Connection and Isolation Panel Answer Date Recorded In a typical week, how many times do you talk on the phone with family, friends, or neighbors? More than three times a week 11/03/2024 How often do you get togethe r with friends or relatives? Twice a week 11/03/2024 How often do you attend [facility] or roman catholic services? More than 4 times per year 11/03/2024 Do you belong to any clubs o r organizations such as restorationism groups, unions, fraternal or athletic groups, or [...] Total Score - Questions 1-9 0 03/28 [facility] - Occupational Stress Questionnaire Answer Date Recorded [...] money to buy more. Never true 11/04/19 Within the past 12 months, t he [...] place to sleep or slept in a fdc (including now)? No 10/22/2023 Housing Stability Vital Sign Answer Geraldo e Recorded In the last 12 months, was t here a time when you were not able to pay the mortgage or rent on time? No 11/03/2024 In the past 12 months, how m any times have you moved where you were living? 0 11/03/2024 At any time in the past 12 m [facility], were you homeless or living in a fdc (including now)? No 11/03/2024 Education Answer Date [...] Orientation Straight 11/14/2024 1: 15 PM CDT Last Filed Vital Signs Vital Sign Reading Time Taken Comments Blood Pressure 151/86 01/31/2025 2:37 PM CDT Pulse 90 01/31/2025 2:37 PM CDT Temperature 36.4 C (97.5 F) 01/31/2025 6:06 AM CDT Respiratory Rate 16 01/31/2025 2:37 PM CDT Oxygen Saturation 96% 01/31/2025 2:37 PM CDT Inhaled Oxygen Concentration - - Weight 91.1 kg (200 lb 12.8 oz) 01/31/2025 2:37 PM CDT Height 152.4 cm (5') 01/31/2025 2:37 PM CDT Body Mass Index 39.22 01/31/2025 2:37 PM CDT Plan of Treatment Upcoming Encounters Date Type Department Care Team (Late st Contact Info) Description 04/11/2025 8:00 AM CDT Office Visit [facility] - Endocrinology - [place] [address] [place] [phone] Vivien Wilson MD [address] [address] 04/28/2025 7:20 AM CDT Lab [facility] [address] [address] Lab [place] [facility]/Ancillary 05/05/2025 8:45 AM CDT Office Visit [facility] Medicine - [place] [address] [place] [address] Nav Hawkins MD [address] [address] 05/18/2025 10:00 AM CDT Office Visit [facility] - Pulmonology & Sleep Medicine - [place] [address] [place] [address] Phillip Sampson MD [address] [place] [address] Health Maintenance Due Date Last Done Comments Hepatitis C Virus (HCV) Screening 1973 Hepatitis B Immunization (1 of 3 - 19+ 3-dose series) 1992 Cologuard 2018 Immunochemical Fecal Occult Blood 2018 Zoster Immunization (1 of 2) 2023 SARS-COV-2 Immunization ( - season) 2024 Pap Smear 01/14/2025 01/14/2022, 08/25/2017 Diabetes: Eye Exam 03/14/2025 03/14/2024 Diabetes: Foot Exam 03/14/2025 03/14/2024, 3 Influenza Immunization (#1) 2025 Pneumococcal Immunization (50+ years) (1 of 2 - PCV) 05/16/2025 Postponed fro m 1992 (Patient Temporarily Declines) Diabetes: Hemoglobin A1c 07/08/2025 025, 06/15/2024, 03/14/2024, Additional history exists Diabetes: Nephropathy Screening 10/14/2025 10/14/2024, 04/18/2024, 10/13/2023, Additional history exists Mammogram 12/13/2025 12/13/2024, 01/27/2024, 01/24/2022, Additional history exists Td Immunization Every 10 Years (Adults With 1 Tdap) 10/10/2029 10/11/2019 Cervical Cancer Screening (CCS) 01/31/2030 HPV/Cotest 01/31/2030 01/31/2025, 08/25/2017 Colonoscopy 07/23/2030 07/23/2020 Colorectal Cancer Screening 07/23/2030 Respiratory Syncytial Virus (RSV) Immunization (Adult) (1 - 1-dose 75+ series) 2048 Discussion re Starting/Frequency of Mammograms Discontinued 12/13/2024, 01/27/2024, 01/24/2022, Additional history exists Human Papillomavirus (HPV) Immunization Aged Out No longer eligible based on patient's age to complete this topic Meningococcal Immunization (ACWY) Aged Out No longer eligible based on patient's age to complete this topic Rotavirus Immunization Aged Out No lo nger eligible based on patient's age to complete this topic Procedures Procedure Name Priority Date/Time Associated Diagnosis Comments HUMAN PAPILLOMA VIRUS (HPV) Routine 01/31/2025 3:05 PM CDT Encounter for well woman exam with routine gynecological exam POCT GLYCOSYLATED HEMOGLOBIN Routine 01/06/2025 8:30 AM CDT Type 2 diabetes mellitus with other specified complication, without long-term current use of insulin SISSY SCREENING BILATERAL DIGITAL W CAD W SADE Routine 12/13/2024 8:31 AM CDT Visit for screening mammogram CT CHEST W/O CONTRAST Routine 12/12/2024 4:52 PM CDT Nodule of lower lobe of left lung CMP (COMPREHENSIVE METABOLIC PANEL) Routine 10/14/2024 7:02 AM CDT Diabetes type 2, no ocular involvement (HCC) Coronary artery disease involving [place] heart without angina pectoris, unspecified vessel or lesion type Pure hypercholesterolemia Primary hypertension DIABETIC BILATERAL RETINAL IMAGING WITH COMPUTERIZED INTERPRETATION Routine 03/14/2024 9:04 AM CDT Diabetes type 2, no ocular involvement (HCC) PATHOLOGY CYTOLOGY MEDICAL LABORATORY TECHNICIAN Routine 2 4:20 PM CDT Primary hypertension Hypertriglyceridemia Encounter for well woman exam with routine gynecological exam from Last 3 Months or Most Recently Relevant to Health Maintenance Results * HUMAN PAPILLOMA VIRUS (HPV) (01/31/2025 3:05 PM CDT) HPV TYPE 16 NEGATIVE NEGATIVE 02/01/2025 11:19 AM CDT [facility] Comment: A negative high-risk HPV result does not exclude the possibility of future cytologic HSIL or underlying CIN2-3 or cancer. The presence of PCR inhibitors may cause false negative or invalid results. If concentrations of whole blood in the sample exceed 10% (dark red or brown coloration) in PreservCyt solution, there is a likelihood of obtaining a false-negative result. HPV TYPE 18 NEGATIVE NEGATIVE 02/01/2025 11:19 AM T [facility] Comment: A negative high-risk HPV result does not exclude the possibility of future cytologic HSIL or underlying CIN2-3 or cancer. The presence of PCR inhibitors may cause false negative or invalid results. If concentrations of whole blood in the sample exceed 10% (dark red or brown coloration) in PreservCyt solution, there is a likelihood of obtaining a false-negative result. HPV OTHER HIGH RISK TYPES, PCR NEGATIVE NEGATIVE 02/01/2025 11:19 AM T [facility] Comment: The following Other High Risk types were not detected: 31, 33, 35, 39, 45, 51, 52, 56, 58, 59, 66, and 68. A negative high-risk HPV result does not exclude the possibility of future cytologic HSIL or underlying CIN2-3 or cancer. The presence of PCR inhibitors may cause false negative or invalid results. If concentrations of whole blood in the sample exceed 10% (dark red or brown coloration) in PreservCyt solution, there is a likelihood of obtaining a false-negative result. HPV ORDER BE USED FOR SCREENING OR DIAGNOSTIC SCREENING 02/01/2025 11:19 AM T [facility] Other Non-Phlebotomy Collection / Unknown 01/31/2025 3:05 PM CDT 01/31/2025 3:05 PM CDT Narrative [facility] - 02/01/2025 11:19 AM CDT This test was performed using NOAH 5800 Real Time PCR. us Lencho Vee MD LAB SEND OUTS Final Result [facility] [address] [place] [address], [place] [facility] [address] [place] [address] * POCT GLYCOSYLATED HEMOGLOBIN (01/06/2025 8:30 AM CDT) HGB-A1C 5.6 4 - 6 % Blood 01/06/2025 8:30 AM CDT Vivien Wilson MD POINT OF CARE TESTING (MANUAL) F inal Result * SISSY SCREENING BILATERAL DIGITAL W CAD W SADE (12/13/2024 8:31 AM CDT) Anatomical Region Laterality Modality breast Bilateral Mammography 12/13/2024 8:03 AM CDT Narrative 12/14/2024 1:23 PM CDT - SISSY SCREENING BILATERAL DIGITAL W CAD W SADE BILATERAL DIGITAL SCREENING MAMMOGRAM 3D/2D WITH CAD WITH MEDIOLATERAL OBLIQUE CRANIOCAUDAL: 12/13/2024 The study was acquired using digital technology and interpreted from soft copy. Current study was also evaluated with ICAD version 7.2. 2D digital mammographic views, as well as 3D digital tomosynthesis were performed in the CC and MLO projections. CLINICAL: Routine screening. Patient has no complaints. No personal history of cancer. Maternal great aunt had breast cancer. COMPARISONS: Comparison is made to exams dated: 01/27/2024, 01/24/2022, and 02/09/2019 [facility]. BREAST TISSUE:There are scattered areas of fibroglandular density. FINDINGS: No significant masses, calcifications, or other findings are seen in either breast. There has been no significant interval change. IMPRESSION: NEGATIVE There is no mammographic evidence of malignancy. A 1 year screening mammogram is recommended. A letter will be sent to the patient with these results. The patient will be entered into a reminder system with a target due date of 1 year for her next screening exam. Electronically signed by: Germain estrada/penrad:12/14/2024 13:06:11 Admissions Manager Rn(s): RT Caitlin(R)(M), [facility] letter sent: Normal Exam Reading location: [facility] Mammogram BI-RADS: Category 1: Negative Procedure Note Germain Gilliam MD - 12/14/2024 - SISSY SCREENING BILATERAL DIGITAL W CAD W SADE BILATERAL DIGITAL SCREENING MAMMOGRAM 3D/2D WITH CAD WITH MEDIOLATERAL OBLIQUE CRANIOCAUDAL: 12/13/2024 The study was acquired using digital technology and interpreted from soft copy. Current study was also evaluated with 3D FUTURE VISION IID version 7.2. 2D digital mammographic views, as well as 3D digital tomosynthesis were performed in the CC and MLO projections. CLINICAL: Routine screening. Patient has no complaints. No personal history of cancer. Maternal great aunt had breast cancer. COMPARISONS: Comparison is made to exams dated: 01/27/2024, 01/24/2022, and 02/09/2019 [facility]. BREAST TISSUE:There are scattered areas of fibroglandular density. FINDINGS: No significant masses, calcifications, or other findings are seen in either breast. There has been no significant interval change. IMPRESSION: NEGATIVE There is no mammographic evidence of malignancy. A 1 year screening mammogram is recommended. A letter will be sent to the patient with these results. The patient will be entered into a reminder system with a target due date of 1 year for her next screening exam. Electronically signed by: Germain estrada/penrad:12/14/2024 13:06:11 Admissions Manager Rn(s): RT Caitlin(R)(M), [facility] letter sent: Normal Exam Reading location: [facility] Mammogram BI-RADS: Category 1: Negative Nav Hawkins MD IMG MAMMO ORDERABLES Final Re sult * CT CHEST W/O CONTRAST (12/12/2024 4:52 PM CDT) Anatomical Region Laterality Modality Chest N/A Computed Tomogra phy 12/14/2024 9:38 PM CDT Impressions 12/14/2024 9:40 PM CDT IMPRESSION: 1. 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 2. No concerning nodule identified. Narrative 12/14/2024 9:40 PM CDT EXAM DESCRIPTION: CT CHEST W/O CONTRAST REASON FOR STUDY: 5 year fu Nodule of lower lobe of left lung and other lung nodules. Hx HTN and former smoker. TECHNIQUE: CT scan of the chest performed without intravenous contrast using helical scanning technique. Reconstructed coronal and sagittal MPR images reviewed. All images stored on PACS. Automated exposure control was used as a dose optimization technique for this examination. COMPARISON: 08/19/2023 FINDINGS: LUNGS: Clear. Small area of interlobular sequestration in the left lung base unchanged. Trachea and major airways patent. HEART/MEDIASTINUM/KAITLIN: Heart size normal. Coronary artery stents. No enlarged lymph node. Thoracic inlet unremarkable. UPPER ABDOMEN: Cholecystectomy. Small fat containing left Bochdalek hernia. MUSCULOSKELETAL: Mild multilevel disc disease. CHEST WALL: Unremarkable. THIS IS AN ELECTRONICALLY VERIFIED FINAL REPORT 12/14/2024 9:38 PM - Electronically signed by Rodriguez Timmons M.D. AR: LYNDSEY Report ID: [id number] Reading Location: [id number] Procedure Note Rodriguez Timmons MD - 12/14/2024 EXAM DESCRIPTION: CT CHEST W/O CONTRAST REASON FOR STUDY: 5 year fu Nodule of lower lobe of left lung and other lung nodules. Hx HTN and former smoker. TECHNIQUE: CT scan of the chest performed without intravenous contrast using helical scanning technique. Reconstructed coronal and sagittal MPR images reviewed. All images stored on PACS. Automated exposure control was used as a dose optimization technique for this examination. COMPARISON: 08/19/2023 FINDINGS: LUNGS: Clear. Small area of interlobular sequestration in the left lung base unchanged. Trachea and major airways patent. HEART/MEDIASTINUM/KAITLIN: Heart size normal. Coronary artery stents. No enlarged lymph node. Thoracic inlet unremarkable. UPPER ABDOMEN: Cholecystectomy. Small fat containing left Bochdalek hernia. MUSCULOSKELETAL: Mild multilevel disc disease. CHEST WALL: Unremarkable. THIS IS AN ELECTRONICALLY VERIFIED FINAL REPORT 12/14/2024 9:38 PM - Electronically signed by Rodriguez Timmons M.D. AR: LYNDSEY Report ID: [id number] Reading Location: [id number] IMPRESSION: 1. 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 2. No concerning nodule identified. Phillip Sampson MD IMG CT ORDERABLES Final Result * (ABNORMAL) CMP (COMPREHENSIVE METABOLIC PANEL) (10/14/2024 7:02 AM CDT) SODIUM 141 136 - 145 mmol/L 10/14/2024 1:13 PM CDT [facility] POTASSIUM 4.1 3.5 - 5.1 mmol/L 10/14/2024 1:13 PM CDT [facility] CHLORIDE 106 98 - 107 mmol/L 10/14/2024 1:13 PM CDT [facility] CO2, VENOUS 25 22 - 30 mmol/L 10/14/2024 1:13 PM CDT [facility] ANION GAP 14.1 <18.0 mmol/L 10/14/2024 1:13 PM CDT [facility] GLUCOSE 100(H) 70 - 99 mg/dL 10/14/2024 1:13 PM CDT [facility] BUN 13 10 - 20 mg/dL 10/14/2024 1:13 PM CDT [facility] CREATININE, BLOOD 0.77 0.60 - 1.00 mg/dL 10/14/2024 1:13 PM CDT [facility] BUN/CREATININE RATIO 17 12 - 20 ratio 10/14/2024 1:13 PM CDT [facility] TOTAL PROTEIN 7.1 6.0 - 8.0 g/dL 10/14/2024 1:13 PM CDT [facility] ALBUMIN 4.0 3.5 - 5.0 g/dL 10/14/2024 1:13 PM CDT [facility] A/G RATIO 1.3 1.0 - 2.2 10/14/2024 1:13 PM CDT [facility] CALCIUM 8.9 8.7 - 10.5 mg/dL 10/14/2024 1:13 PM CDT [facility] T BILI 0.2 0.2 - 1.2 mg/dL 10/14/2024 1:13 PM CDT [facility] SGOT (AST) 34 <43 U/L 10/14/2024 1:13 PM CDT [facility] SGPT (ALT) 26 <56 U/L 10/14/2024 1:13 PM CDT [facility] ALKALINE PHOSPHATASE 80 40 - 150 U/L 10/14/2024 1:13 PM CDT [facility] IS THE PATIENT REQUIRED TO BE FASTING? No 10/14/2024 1:13 PM CDT [facility] GFR, ESTIMATED >60 >=60 10/14/2024 1:13 PM CDT [facility] Comment: Creatinine Clearance is the preferred criteria for selecting drug dose adjustments in renally impaired patients. The GFR is provided as additional pertinent clinical information. GFR is reported in mL/min/1.73 sq m. Calculation based on the Chronic Kidney Disease Epidemiology Collaboration (CKD- EPI) equation refit without adjustment for race. GFR, EST. >60 >=60 025 1:13 PM CDT [facility] GFR, EST. NONAFRICAN >60 >=60 10/14/2024 1:13 PM CDT [facility] Blood Venipuncture / Unknown 10/14/2024 7:02 AM CDT 10/14/2024 7:02 AM CDT Nav Hawkins MD CHEMISTRY ORDERABLES Final Re sult Performing Organization Address City/[facility]/ZIP Co de Phone Number [facility] [address] [place] [address] * DIABETIC BILATERAL RETINAL IMAGING WITH COMPUTERIZED INTERPRETATION (03/14/2024 9:04 AM CDT) DIABETIC BILATERAL DIGITAL RETINAL IMAGING No Diabetic Retinopathy Detected: ETDRS level 20 or lower and no Diabetic Macular Edema [facility] Comment: Next Steps: Retest in 12 months IDx Submission ID: [id number] Results were produced by a system that provides an artificial intelligence (AI) interpretation A positive result indicates a high risk of diabetic retinopathy with a severity of ETDRS level 35 or higher and/or macular edema. IDx-DR diabetic retinopathy exam does not replace a comprehensive eye exam. Other 03/14/2024 9:04 AM CDT Vivien Wilson MD OUTPT PROCEDURE ORDERABLES Final Result Performing Organization Address [facility] Co de Phone Number EXTERNAL EKG DIGITAL DIAGNOSTICS * PATHOLOGY CYTOLOGY MEDICAL LABORATORY TECHNICIAN (01/14/2022 4:20 PM CDT) SPECIMEN ADEQUACY Satisfactory for evaluation. Endocervical/transf ormation zone component is absent. 02/04/2022 2:47 PM CDT [facility] DESCRIPTIVE DIAGNOSIS NEGATIVE FOR INTRAEPITHELIAL LESIONS OR MALIGNANCY. 02/04/2022 2:47 PM CDT [facility] at 1447 CDT HPV Reflex if ASCUS? Yes 02/04/2022 2:47 PM CDT [facility] Automated Examination Analysis of this sample has been assisted by an automated imaging and review system ([employer] Imaging System, [employer], [place], [place]). This case is further evaluated and finalized by a press operator apprentice and/or pathologist. 02/04/2022 2:47 PM CDT [facility] Disclaimer The PAP smear is a screening test designed to detect cancerous or precancerous cells of the uterine cervix. It is one of the best means available for detection of cervical cancer but still carries an inherent false-negative rate. The consequences of a false-negative PAP result can be minimized by adhering to current screening guidelines. The following are general guidelines recommended by the ACS, ASCP, ASCCP, and ACOG: PAP testing is recommended every three years for women 21-29, Co-Testing, a PAP test in conjunction with an HPV (Human Papillomavirus) test for women ages 30-65, and no PAP or HPV testing for women under the age of 21 or older than 65 unless clinically indicated. 02/04/2022 2:47 PM CDT [facility] Other CERVIX UTERI STRUCTURE / Unknown Non-Phlebotomy Collection / Unknown 01/14/2022 4:20 PM CDT 01/14/2022 4:20 PM CDT us Lencho Vee MD PATHOLOGY/CYTOLOGY ORDERABLES Final Result [facility] [address] [place] [address], from Last 3 Months or Most Recently Relevant to Health Maintenance Insurance MEDICAID [place] Advance Directives * Full Code (Latest Code Status on File) Date Activated Date Inactivated Comments 04/19/2020 10:39 PM 04/22/2020 2:43 PM CPR-Full Tr eatment: FULL ARREST: Attempt Resuscitation/CPR wit intubation and mechanical ventilation. PRE-ARREST: Use entire range of life support measures to stabilize the patient. * Full Code Date Activated Date Inactivated Comments 07/12/2016 6:38 PM 07/15/2016 2:16 PM CPR-Full T reatment: FULL ARREST: Attempt Resuscitation/CPR wit intubation and mechanical ventilation. PRE-ARREST: Use entire range of life support measures to stabilize the patient. Care Teams Barrel Raiser Relationship Specialty Start Date End Date Nav Hawkins MD #[address] [facility] [address] [place] [address] PCP - General Family Medicine 09/18/16 Phillip Sampson MD #2 [place] [address] Consulting Physician Pulmonary Disease 10/17/21 Vivien Wilson MD #[address] [facility] [address] [place] [address] Consulting Physician Endocrinology 02/17/22 Shefali Rouse APRN, BODILY INJURY ADJUSTER #[address] [facility] [address] [place] [address] Nurse Practitioner Advanced Practice Nurse 04/30/22 Lencho Vee MD #2 [place] [address] Consulting Physician Obstetrics & Gynecology 01/25/25
--- OUTSIDE RECORDS SUMMARY | 2025-02-01 17:44 | XMS_ITS | Encounter Summary ---
Author Organization [facility] Address [address] [place] [address] Phone Care Team Providers Care Onboarding Specialist Name Role Phone Nav Hawkins MD Primary Care Provider [phone] Phillip Sampson MD Unavailable Vivien Wilson MD Unavailable Shefali Rouse APRN, CNP Unavailable [phone] Lencho Vee MD Unavailable [phone] Reason for Visit * Reason Comments Medication Refill Encounter Details Date Type Department Care Team (Late st Contact Info) Description 01/09/2022 [facility]ill [facility] - [place] #[address] [place] [address] Vivien Wilson MD #[address] [address] Medication Refill Social History Tobacco Use Types Packs/Day Years Used Date Smoking Tobacco: Former Cigarettes 0.5 25 0 04/20/1991 - 04/20/2016 Smokeless Tobacco: Never Alcohol Use Standard Drinks/Week Comments No 0 (1 standard drink = 0.6 oz pur e alcohol) PHQ-2 Answer Date Recorded Total Score - Questions 1-9 0 09/24 Education Answer Date Recorded What is the [...] Exposure Response Date Recorded In the last 10 days, have yo u been in contact with someone who was confirmed or suspected to have Coronavirus/COVID-19? No / Unsure 01/02/2022 1:07 PM CDT documented as of this encounter Miscellaneous Notes * Telephone Encounter - Itzel Alfaro RN - 01/09/2022 8:27 AM CDT Requested Prescriptions Pending Prescriptions Disp Refills ??? Jardiance 25 MG Tablet [Pharmacy Med Name: JARDIANCE 25 MG TABLET] 30 Tablet 5 Sig: TAKE 1 TABLET BY MOUTH EVERY DAY Next appt: 02/26/2022 documented in this encounter Plan of Treatment Upcoming Encounters Date Type Department Care Team (Late st Contact Info) Description 04/11/2025 8:00 AM CDT Office Visit [facility] - Endocrinology - [place] #2 [place] [address] Vivien Wilson MD #2 [facility] [address] [place] [address] 04/28/2025 7:20 AM CDT Lab [facility] #2 [facility] [address] [place] [address] David Thorpe Lab/Ancillary 05/05/2025 8:45 AM CDT Office Visit [facility] Group - Family Medicine [facility] #2 [place] [address] Nav Hawkins MD #2 [facility] [address] [place] [address] 05/18/2025 10:00 AM CDT Office Visit [facility] - Pulmonology & Sleep Medicine - [place] #2 [place] [address] Phillip Sampson MD #2 [place] [address] documented as of this encounter Visit Diagnoses Not on filedocumented in this encounter Additional Health Concerns Infection Onset Date Last Indicated Resolved Time COVID - 19 05/14/2022 05/14/2022 05/24/2022 12:1 6 AM CDT Assessment Noted Time PHQ-9 Depression Total Score: 0 08/07/19 21 2:07 PM PROOF TESTER documented as of this encounter Care Teams Onboarding Specialist Relationship Specialty Start Date End Date Nav Hawkins MD #2 [facility] [address] [place] [address] PCP - General Family Medicine 09/18/16 Phillip Sampson MD #2 [place] [address] Consulting Physician Pulmonary Disease 10/17/21 Vivien Wilson MD #2 [facility] [address] [place] [address] Consulting Physician Endocrinology 02/17/22 Shefali Rouse APRN, PRESCRIPTIONIST #2 [facility] [address] [place] [address] Nurse Practitioner Advanced Practice Nurse 04/30/22 Lencho Vee MD #2 [place] [address] Consulting Physician Obstetrics & Gynecology 01/25/25 documented as of this encounter
--- OUTSIDE RECORDS SUMMARY | 2025-02-01 17:44 | XMS_ITS | Encounter Summary ---
Author Organization [facility] Address [address] [place] [address] Phone Care Team Providers Care Tower Equipment Installer Name Role Phone Nav Hawkins MD Primary Care Provider [phone] Phillip Sampson MD Unavailable Vivien Wilson MD Unavailable Shefali Rouse APRN, CNP Unavailable [phone] Lencho Vee MD Unavailable [phone] Reason for Visit * Reason Comments Medication Refill Encounter Details Date Type Department Care Team (Late st Contact Info) Description 12/24/2022 Refill [facility] - [place] #[address] [place] [address] Vivien Wilson MD #[address] [address] Medication Refill Social History Tobacco [...] suspected to have Coronavirus/COVID-19? No / Unsure 12/08/2022 9:51 AM CDT documented as of this encounter Miscellaneous Notes * Telephone Encounter - Itzel Alfaro RN - 12/24/2022 8:04 AM CDT Requested Prescriptions Pending Prescriptions Disp Refills ??? atorvastatin (LIPITOR) 40 MG Tablet [Pharmacy Med Name: ATORVASTATIN 40 MG TABLET] 90 Tablet 1 Sig: TAKE 1 TABLET BY MOUTH EVERY DAY Next appt: 03/10/2023 documented in this encounter Plan of Treatment Upcoming Encounters Date Type Department Care Team (Late st Contact Info) Description 04/11/2025 8:00 AM CDT Office Visit [facility] Group - Endocrinology - [place] #2 [place] [address] Vivien Wilson MD #2 [facility] [address] [place] [address] 04/28/2025 7:20 AM CDT Lab [facility] #[address] [facility] [address] [place] [address] David Thorpe Lab/Ancillary 05/05/2025 8:45 AM CDT Office Visit [facility] Medical Group - Family Medicine [facility] #2 [place] [address] Nav Hawkins MD #2 [facility] [address] [place] [address] 05/18/2025 10:00 AM CDT Office Visit [facility] - Pulmonology & Sleep Medicine - [place] #2 [place] [address] Phillip Sampson MD #2 [place] [address] documented as of this encounter Visit Diagnoses Not on filedocumented in this encounter Additional Health Concerns Assessment Noted Time PHQ-9 Depression Total Score: 0 08/07/19 21 2:07 PM MOP WORKER documented as of this encounter Care Teams Tower Equipment Installer Relationship Specialty Start Date End Date Nav Hawkins MD #[address] [address] PCP - General Family Medicine 09/18/16 Phillip Sampson MD #2 [place] [address] Consulting Physician Pulmonary Disease 10/17/21 Vivien Wilson MD #2 [facility] [address] [place] [address] Consulting Physician Endocrinology 02/17/22 Shefali Rouse APRN, REGISTER OF DEEDS #2 [facility] [address] [place] [address] Nurse Practitioner Advanced Practice Nurse 04/30/22 Lencho Vee MD #2 [place] [address] Consulting Physician Obstetrics & Gynecology 01/25/25 documented as of this encounter
--- OUTSIDE RECORDS SUMMARY | 2025-02-01 17:44 | XMS_ITS | Encounter Summary ---
Author Organization [facility] Address [address] [place] [address] Phone Care Team Providers Care Project Manager Industrial Name Role Phone Nav Hawkins MD Primary Care Provider [phone] Phillip Sampson MD Unavailable Vivien Wilson MD Unavailable Shefali Rouse APRN, CHUCK Unavailable [phone] Lencho Vee MD Unavailable [phone] Encounter Details Date Type Department Care Team (Late st Contact Info) Description 12/14/2024 Results Follow-Up [facility] - Family Medicine [facility] #2 [place] [address] Nav Hawkins MD #[address] [address] SISSY SCREENING BILATERAL DIGITAL W CAD W SADE Social History Tobacco Use Types Packs/Day Years Used Date Smoking Tobacco: Former Cigarettes 0.5 25 0 04/20/1991 - 04/20/2016 Smokeless Tobacco: Never Alcohol Use Standard Drinks/Week Comments No 0 (1 standard drink = 0.6 oz pur e alcohol) [facility] Utilities Answer Date Recorded In the [...] How often do you attend chur or moravian services? More than 4 times per year 11/03/2024 Do you belong to any clubs o r organizations such as anabaptism groups, unions, fraternal or athletic groups, or [...] Total Score - Questions 1-9 0 03/28 [facility] - Occupational Stress [...] place to sleep or slept in a halfway (including now)? No 10/22/2023 Housing Stability Vital Sign Answer Geraldo e Recorded In the last 12 months, was t here a time when you were not able to pay the mortgage or rent on time? No 11/03/2024 In the past 12 months, how m any times have you moved where you were living? 0 11/03/2024 At any time in the past 12 m [facility], were you homeless or living in a halfway (including now)? No 11/03/2024 Education Answer Date [...] PM CDT documented as of this encounter Plan of Treatment Upcoming Encounters Date Type Department Care Team (Late st Contact Info) Description 04/11/2025 8:00 AM CDT [facility] - [place] #2 [place] [address] Vivien Wilson MD #[address] [place] [address] 04/28/2025 7:20 AM CDT Lab [facility] #[address] [address] [facility] Lab/Ancillary 05/05/2025 8:45 AM CDT Office Visit [facility] - Family [facility] [place] #2 [place] [address] Nav Hawkins MD #[address] [address] 05/18/2025 10:00 AM CDT [facility] - Pulmonology & Sleep Medicine - [place] #2 [place] [address] Phillip Sampson MD #2 [place] [address] documented as of this encounter Visit Diagnoses Not on filedocumented in this encounter Additional Health Concerns Assessment Noted Time PHQ-9 Depression Total Score: 0 04/22/20 8:39 AM CDT documented as of this encounter Care Teams Project Manager Industrial Relationship Specialty Start Date End Date Nav Hawkins MD #[address] [address] PCP - General Family Medicine 09/18/16 Phillip Sampson MD #2 [place] [address] Consulting Physician Pulmonary Disease 10/17/21 Vivien Wilson MD #2 [facility] [address] [place] [address] Consulting Physician Endocrinology 02/17/22 Shefali Rouse APRN, CHUCK #2 [facility] [address] [place], [place] [address] Nurse Practitioner Advanced Practice Nurse 04/30/22 Lencho Vee MD #2 [place] [address] Consulting Physician Obstetrics & Gynecology 01/25/25 documented as of this encounter
--- OUTSIDE RECORDS SUMMARY | 2025-02-01 17:44 | XMS_ITS | Encounter Summary ---
Author Organization [employer] Care Team Providers Care Valve Technician Name Role Phone Nav Hawkins MD Primary Care Provider [phone] Phillip Sampson MD Unavailable Vivien Wilson MD Unavailable Shefali Rouse APRN, RESOURCE MANAGER Unavailable [phone] Lencho Vee MD Unavailable [phone] Encounter Details Date Type Department Care Team (Latest Contact Info) Description 01/31/2025 Travel Social History Tobacco Use Types Packs/Day Years Used Date Smoking Tobacco: Former Cigarettes 0.5 25 0 04/20/1991 - 04/20/2016 Smokeless Tobacco: Never Alcohol Use Standard Drinks/Week Comments No 0 (1 standard drink = 0.6 oz pur e alcohol) [facility] Utilities Answer Date Recorded In the past 12 months has [employer], gas, oil, or water [employer] threatened to shut off services in your home? No 11/03/2024 Social Connection and Isolation Panel Answer Date Recorded In a typical week, how many times do you talk on the phone with family, friends, or neighbors? More than three times a week 11/03/2024 How often do you get togethe r with friends or relatives? Twice a week 11/03/2024 How often do you attend [facility] or yazidi services? More than 4 times per year 11/03/2024 Do you belong to any clubs o r organizations such as oriental orthodox groups, unions, fraternal or athletic groups, or [...] Total Score - Questions 1-9 0 03/28 [facility] - Occupational [...] any time in the past 12 m [facility], were you homeless or living [...] Visit [facility] - [place] [facility] [place] [address] Vivien Wilson MD #2 [facility] [address] [place] [address] 04/28/2025 7:20 AM CDT Lab [facility] [address] [place] [address] [facility] Lab/Ancillary 05/05/2025 8:45 AM CDT Office Visit [facility] Medical [facility] - Family [place] - [place] #2 [place] [address] Nav Hawkins MD #2 [facility] [address] [place] [address] 05/18/2025 10:00 AM CDT Office Visit [facility] - Pulmonology & Sleep Medicine - [place] #[facility] [place] [address] Phillip Sampson MD #2 [place] [address] documented as of this encounter Visit Diagnoses Not on filedocumented in this encounter Additional Health Concerns Assessment Noted Time PHQ-9 Depression Total Score: 0 04/22/20 8:39 AM CDT documented as of this encounter Care Teams Valve Technician Relationship Specialty Start Date End Date Nav Hawkins MD #2 [facility] [address] [place] [address] PCP - General Family Medicine 09/18/16 Phillip Sampson MD #2 [place] [address] Consulting Physician Pulmonary Disease 10/17/21 Vivien Wilson MD #2 [facility] [address] [place] [address] Consulting Physician Endocrinology 02/17/22 Shefali Rouse APRN, RESOURCE MANAGER #2 [facility] [address] [place] [address] Nurse Practitioner Advanced Practice Nurse 04/30/22 Lencho Vee MD #2 [place] [address] Consulting Physician Obstetrics & Gynecology 01/25/25 documented as of this encounter
--- OUTSIDE RECORDS SUMMARY | 2025-02-01 17:44 | XMS_ITS | Encounter Summary ---
Author Organization [facility] Address [address] [place] [address] Phone Care Team Providers Care Supervisor Mold Shop Name Role Phone Nav Hawkins MD Primary Care Provider [phone] Phillip Sampson MD Unavailable Vivien Wilson MD Unavailable Shefali Rouse APRN, CNP Unavailable [phone] Lencho Vee MD Unavailable [phone] Reason for Visit * Reason Comments Medication Refill Encounter Details Date Type Department Care Team (Late st Contact Info) Description 10/20/2023 Refill [facility] - Endocrinology - [place] #[address] [place] [address] Vivien Wilson MD #[address] [address] Medication Refill Social History Tobacco Use Types Packs/Day Years Used Date Smoking Tobacco: Former Cigarettes 0.5 25 0 04/20/1991 - 04/20/2016 Smokeless Tobacco: Never Alcohol Use Standard Drinks/Week Comments No 0 (1 standard drink = 0.6 oz pur e alcohol) [facility] Utilities Answer Date Recorded In the past 12 months has th e electric, gas, oil, or water company threatened to shut off services in your home? No 10/22/2023 Social Connection and Isolation Panel Answer Date Recorded In a typical week, how many times do you talk on the phone with family, friends, or neighbors? More than three times a week 10/22/2023 How often do you get togethe r with friends or relatives? Once a week 10/22/2023 How often do you attend chur or scientology services? More than 4 times per year 10/22/2023 Do you belong to any clubs o r organizations such as spiritism groups, unions, fraternal or athletic groups, or school groups? Yes 10/22/2023 How often do you attend meet ings of the clubs or organizations you belong to? More than 4 times per year 10/22/2023 Are you , , di vorced, , never , or living with a partner? 10/22/2023 AUDIT-C Answer Date Recorded Q1: How often do you have a drink containing alcohol? Never 10/22/2023 Q2: How many drinks containi ng alcohol do you have on a typical day when you are drinking? Patient does not drink Q3: How often do you have si x or more drinks on one occasion? Never 10/22/2023 Overall Financial Resource Strain (CARDIA) Answe r Date Recorded How hard is it for you to pa y for the very basics like food, housing, medical care, and heating? Not very hard 10/22/2023 PHQ-2 Answer Date Recorded Total Score - Questions 1-9 0 09/24 [facility] - Occupational Stress Questionnaire Answer Date Recorded Do you feel stress - tense, restless, nervous, or anxious, or unable to sleep at night because your mind is troubled all the time - these days? Only a little 10/22/2023 Exercise Vital Sign Answer Date Recorde d On average, how many days pe r week do you engage in moderate to strenuous exercise (like a brisk walk)? 3 days 10/22/2023 On average, how many minutes do you engage in exercise at this level? 10 min 10/22/2023 Hunger Vital Sign Answer Date Recorded Within the past 12 months, y ou worried that your food would run out before you got the money to buy more. Never true 10/22/19 24 Within the past 12 months, t he food you bought just didn't last and you didn't have money to get more. Never true 10/22/2023 PRAPARE - Transportation Answer Date Re corded In the past 12 months, has l ack of transportation kept you from medical appointments or from getting medications? No 09/25 In the past 12 months, has l ack of transportation kept you from meetings, work, or from getting things needed for daily living? No 10/22/2023 Housing Stability Vital Sign Answer [...] place to sleep or slept in a usp (including now)? No 10/22/2023 Education Answer Date Recorded What is the [...] PM CDT documented as of this encounter Functional Status * AUDIT-C Score Answer Date of Assessment Author 0 10/22/2023 9:10 AM CDT [employer], System Background * Q1: How often do you have a drink containing alcohol? Answer Date of Assessment Author Never 10/22/2023 9:10 AM CDT [employer], System Background * Q2: How many drinks containing alcohol do you have on a typical day when you are drinking? Answer Date of Assessment Author Patient does not drink 10/22/2023 9:10 AM CDT My chart, System Background * Q3: How often do you have six or more drinks on one occasion? Answer Date of Assessment Author Never 10/22/2023 9:10 AM CDT [employer], System Background documented as of this encounter Miscellaneous Notes * Telephone Encounter - Itzel Alfaro RN - 10/20/2023 10:08 AM CDT Medication(s) refilled and signed per [facility] Chronic Medication Refill Standing Order for Pediatric and Adult Patients. documented in this encounter Plan of Treatment Upcoming Encounters Date Type Department Care Team (Late st Contact Info) Description 04/11/2025 8:00 AM CDT [facility] - [place] #2 [place] [address] Vivien Wilson MD #2 [facility] [address] [place] [address] 04/28/2025 7:20 AM CDT Lab [facility] #2 [facility] [address] [place] [address] [facility] 05/05/2025 8:45 AM CDT Office Visit [facility] - Family Medicine - [place] #2 [facility] [place] [address] Nav Hawkins MD #2 [facility] [address] [place] [address] 05/18/2025 10:00 AM CDT Office Visit [facility] - Pulmonology & Sleep Medicine - [place] #2 [place] [address] Phillip Sampson MD #2 [place] [address] documented as of this encounter Visit Diagnoses Not on filedocumented in this encounter Additional Health Concerns Assessment Noted Time PHQ-9 Depression Total Score: 0 08/07/19 21 2:07 PM SENIOR GRANT WRITER documented as of this encounter Care Teams Supervisor Mold Shop Relationship Specialty Start Date End Date Nav Hawkins MD #2 [facility] [address] [place] [address] PCP - General Family Medicine 09/18/16 Phillip Sampson MD #2 [place] [address] Consulting Physician Pulmonary Disease 10/17/21 Vivien Wilson MD #2 [facility] [address] [place] [address] Consulting Physician Endocrinology 02/17/22 Shefali Rouse APRN, SALESPERSON PARTS #2 [facility] [address] [place] [address] Nurse Practitioner Advanced Practice Nurse 04/30/22 Lencho Vee MD #2 [place] [address] Consulting Physician Obstetrics & Gynecology 01/25/25 documented as of this encounter
--- OUTSIDE RECORDS SUMMARY | 2025-02-01 17:44 | XMS_ITS | Encounter Summary ---
Author Organization [facility] Address [address] [place] [address] Phone Care Team Providers Care Felling Machine Operator Name Role Phone Nav aHwkins MD Primary Care Provider [phone] Phillip Sampson MD Unavailable Vivien Wilson MD Unavailable Shefali Rouse APRN, PURCHASING SPECIALIST Unavailable [phone] Lencho Vee MD Unavailable [phone] Reason for Referral * Radiology Services (Routine) - Open Specialty Diagnoses / Procedures Referred By Contac t Referred To Contact Radiology Diagnoses Nodule of lower lobe of left lung Procedures CT CHEST W/O CONTRAST Phillip Sampson MD [address] [place] [address] Phone: tel: fax: Referral ID Status Reason Start Date Expiration Date Visits Re quested Visits Authorized [id number] Open 12/15/2024 1 1 Encounter Details Date Type Department Care Team (Late st Contact Info) Description 12/15/2024 Results Follow-Up [facility] - Pulmonology & Sleep Medicine [facility] #[address] [place] [address] Phillip Sampson MD [address] [place] [address] CT CHEST W/O CONTRAST Social History Tobacco Use Types Packs/Day Years Used Date Smoking Tobacco: Former Cigarettes 0.5 25 0 04/20/1991 - 04/20/2016 Smokeless Tobacco: Never Alcohol Use Standard Drinks/Week Comments No 0 (1 standard drink = 0.6 oz pur e alcohol) [facility] Utilities Answer Date Recorded In the past [...] week 11/03/2024 How often do you attend [facility] ch or holiness services? More than 4 times per year [...] Total Score - Questions 1-9 0 03/28 [facility] - Occupational Stress [...] place to sleep or slept in a longterm (including now)? No 10/22/2023 Housing Stability Vital Sign Answer Geraldo e Recorded In the last 12 months, was t here a time when you were not able to pay the mortgage or rent on time? No 11/03/2024 In the past 12 months, how m any times have you moved where you were living? 0 11/03/2024 At any time in the past 12 m onths, were you homeless or living in a longterm (including now)? No 11/03/2024 Education Answer Date [...] 8:00 AM CDT Office Visit [facility] - Endocrinology - [place] [address] [place] [address] Vivien Wilson MD #2 [facility] [address] [place] [address] 04/28/2025 7:20 AM CDT Lab [facility] PHYSICIAN [facility] #2 [facility] [address] [place] [address] [facility] Lab/Ancillary 05/05/2025 8:45 AM CDT Office Visit [facility] - Family Medicine - [place] #2 [facility] [address] Nav Hawkins MD #2 [facility] [address] [place] [address] 05/18/2025 10:00 AM CDT Office Visit [facility] - Pulmonology & Sleep Medicine - [place] [address] [place] [address] Phillip Sampson MD [address] [place] [address] Scheduled Orders Name Type Priority Associated Diagnoses Orde r Schedule CT CHEST W/O CONTRAST Imaging Routine Nodule of lower lobe of left lung Expected: 12/15/2025, Expires: 06/17/2026 documented as of this encounter Visit Diagnoses Diagnosis Nodule of lower lobe of left lung- Primary documented in this encounter Additional Health Concerns Assessment Noted Time PHQ-9 Depression Total Score: 0 04/22/20 24 8:39 AM CDT documented as of this encounter Care Teams Felling Machine Operator Relationship Specialty Start Date End Date Nav Hawkins MD #2 [facility] [address] [place] [address] PCP - General Family Medicine 09/18/16 Phillip Sampson MD [address] [place] [address] Consulting Physician Pulmonary Disease 10/17/21 Vivien Wilson MD #2 [facility] [address] [place] [address] Consulting Physician Endocrinology 02/17/22 Shefali Rouse APRN, PURCHASING SPECIALIST #2 [facility] [address] [place] [address] Nurse Practitioner Advanced Practice Nurse 04/30/22 Lencho Vee MD [address] [place] [address] Consulting Physician Obstetrics & Gynecology 01/25/25 documented as of this encounter
--- OUTSIDE RECORDS SUMMARY | 2025-02-01 17:44 | XMS_ITS | Encounter Summary ---
Author Organization [facility] Address [address] [place] [address] Phone Care Team Providers Care Sales Designer Name Role Phone Nav Hawkins MD Primary Care Provider [phone] Phillip Sampson MD Unavailable Vivien Wilson MD Unavailable Shefali Rouse APRN, CNP Unavailable [phone] Lencho Vee MD Unavailable [phone] Reason for Visit * Reason Comments Medication Refill Encounter Details Date Type Department Care Team (Late st Contact Info) Description 01/06/2024 Refill [facility] - Endocrinology - [place] [address] [place] [address] Vivien Wilson MD #[address] [address] Medication Refill Social History Tobacco Use Types Packs/Day Years Used Date Smoking Tobacco: Former Cigarettes 0.5 25 0 04/20/1991 - 04/20/2016 Smokeless Tobacco: Never Alcohol Use Standard Drinks/Week Comments No 0 (1 standard drink = 0.6 oz pur e alcohol) [facility] Utilities Answer Date Recorded In the past [...] How often do you attend chur or alevism services? More than 4 times per year 10/22/2023 Do you belong to any clubs o r organizations such as muslim groups, unions, fraternal or athletic groups, or [...] Total Score - Questions 1-9 0 09/24 [facility] Occupat ional Health - Occupational [...] place to sleep or slept in a half-way (including now)? No 10/22/2023 Education Answer Date [...] Miscellaneous Notes * Telephone Encounter - Itzel Alfaro, RN - 01/07/2024 8:46 AM CDT Medication(s) refilled and signed per [facility] Chronic Medication Refill Standing Order for Pediatric and Adult Patients. documented in this encounter Plan of Treatment Upcoming Encounters Date Type Department Care Team (Late st Contact Info) Description 04/11/2025 8:00 AM CDT [facility] - [facility] [place] [address] [facility] [address] Vivien Wilson MD [address] [place] [address] 04/28/2025 7:20 AM CDT Lab [facility] #[address] [address] [facility] Lab/Ancillary 05/05/2025 8:45 AM CDT Office Visit [facility] - Family Medicine - [place] [address] [place] [address] Nav Hawkins MD #[address] [address] 05/18/2025 10:00 AM CDT Office Visit [facility] - Pulmonology & Sleep Medicine - [place] [address] [place] [address] Phillip Sampson MD [address] [place] [address] documented as of this encounter Visit Diagnoses Not on filedocumented in this encounter Additional Health Concerns Assessment Noted Time PHQ-9 Depression Total Score: 0 08/07/19 21 2:07 PM REHABILITATION MEDICINE PHYSICIAN documented as of this encounter Care Teams Sales Designer Relationship Specialty Start Date End Date Nav Hawkins MD [address] [address] PCP - General Family Medicine 09/18/16 Phillip Sampson MD [address] [place] [address] Consulting Physician Pulmonary Disease 10/17/21 Vivien Wilson MD #2 [facility] [address] [place] [address] Consulting Physician Endocrinology 02/17/22 Shefali Rouse APRN, CHUCK #2 [facility] [address] [place] [address] Nurse Practitioner Advanced Practice Nurse 04/30/22 Lencho Vee MD [address]2 [place] [address] Consulting Physician Obstetrics & Gynecology 01/25/25 documented as of this encounter
--- OUTSIDE RECORDS SUMMARY | 2025-02-01 17:44 | XMS_ITS | Encounter Summary ---
Author Organization [facility] Address [address] [place] [address] Phone Care Team Providers Care Dry Molder Name Role Phone Nav Hawkins MD Primary Care Provider [phone] Phillip Sampson MD Unavailable Vivien Wilson MD Unavailable Shefali Rouse APRN, CNP Unavailable [phone] Lencho Vee MD Unavailable [phone] Reason for Visit * Reason Comments Medication Refill Encounter Details Date Type Department Care Team (Late st Contact Info) Description 01/06/2024 Refill [facility] - Family Medicine [facility] [address] [place] [address] Nav Hawkins MD #[address] [address] Medication Refill Social History Tobacco Use Types Packs/Day Years Used Date Smoking Tobacco: Former Cigarettes 0.5 25 0 04/20/1991 - 04/20/2016 Smokeless Tobacco: Never Alcohol Use Standard Drinks/Week Comments No 0 (1 standard drink = 0.6 oz pur e alcohol) [facility] Utilities Answer Date Recorded In the [...] How often do you attend chur or samaritan services? More than 4 times per year 10/22/2023 Do you belong to any clubs o r organizations such as anabaptist groups, unions, fraternal or athletic groups, or [...] Total Score - Questions 1-9 0 09/24 [facility] - Occupational Stress Questionnaire Answer [...] place to sleep or slept in a assisted (including now)? No 10/22/2023 Education Answer Date [...] encounter Miscellaneous Notes * Telephone Encounter - Mary Goldberg RN - 01/07/2024 8:28 AM CDT Medication failed the protocol, provider to review and approve the medication order if appropriate. Requested Prescriptions Pending Prescriptions Disp Refills mometasone (ELOCON) 0.1 % Solution [Pharmacy Med Name: MOMETASONE FUROATE 0.1% SOLN] 60 mL 0 Sig: APPLY DAILY TO HANDS Not Delegated - Topical Steroids Protocol Failed - 01/06/2024 8:26 PM Failed - This refill cannot be delegated Passed - Visit with relevant provider in past 12 months or upcoming 90 days Recent Visits Date Type Provider Dept 10/23/23 Office Visit Nav Hawkins MD [facility] 04/16/23 Office Visit Nav Hawkins MD [facility] Showing recent visits within past 365 days and meeting all other requirements Future Appointments No visits were found meeting these conditions. Showing future appointments within next 90 days and meeting all other requirements documented in this encounter Plan of Treatment Upcoming Encounters Date Type Department Care Team (Late st Contact Info) Description 04/11/2025 8:00 AM CDT Office Visit [facility] Medical [facility] - Endocrinology - [place] [address] [place] [address] Vivien Wilson MD #2 [facility] [address] [place] [address] 04/28/2025 7:20 AM CDT Lab [facility] #2 [facility] [address] [place] [address] [facility] Lab/Ancillary 05/05/2025 8:45 AM CDT Office Visit [facility] Medical [facility] - Family Medicine - [place] #2 [place] [address] Nav Hawkins MD #2 [facility] [address] [place] [address] 05/18/2025 10:00 AM CDT Office Visit [facility] - Pulmonology & Sleep Medicine - [place] #[address] [place] [address] Phillip Sampson MD #2 [facility] [address] documented as of this encounter Visit Diagnoses Not on filedocumented in this encounter Additional Health Concerns Assessment Noted Time PHQ-9 Depression Total Score: 0 08/07/19 21 2:07 PM COOPERATIVE EXTENSION AGENT documented as of this encounter Care Teams Dry Molder Relationship Specialty Start Date End Date Nav Hawkins MD #2 [facility] [address] [place] [address] PCP - General Family Medicine 09/18/16 Phillip Sampson MD #2 [place] [address] Consulting Physician Pulmonary Disease 10/17/21 Vivien Wilson MD #2 [facility] [address] [place] [address] Consulting Physician Endocrinology 02/17/22 Shefali Rouse APRN, MANAGER LINE #2 [facility] [address] [place] [address] Nurse Practitioner Advanced Practice Nurse 04/30/22 Lencho Vee MD #2 [place] [address] Consulting Physician Obstetrics & Gynecology 01/25/25 documented as of this encounter
--- OUTSIDE RECORDS SUMMARY | 2025-02-01 17:44 | XMS_ITS | Clinical Summary ---
Author Organization [facility] Address [address] [facility] [place] [address] Care Team Providers Care Benefits Manager Name Role Phone Nav Hawkins MD Primary Care Provider [phone] Source Comments [facility] Affiliates and Associated Physician Practices is amultiple site organization consisting of ambulatory clinics and hospital sitesin [place], [place], [place] and [place]. This disclosure is being madepursuant to the Care Everywhere program and may not contain all information available regarding this patient. Last updated 18.[facility] Allergies Active Allergy Reactions Criticality Noted Date Comments Lisinopril Other Low 09/04/2017 cough Nyquil Urticaria,Rash,Swelling High 07/12/2016 I couldn't breath out of my mouth. Medications * Be aware that medications may not be up to date on this document. Alwaysverify current medications with the patient. triamcinolone acetonide (KENALOG) 0.1 % cream Apply to affected area as needed 7 Active aspirin (ASPIRIN) 81 MG chew tablet Take 1 tablet by mouth once daily 180 tablet 3 8 Active cyanocobalamin (VITAMIN B-12) 100 MCG tablet Activ e ascorbic acid (VITAMIN C) 500 MG tablet Active APPLE CIDER VINEGAR PO Active cholecalciferol (D--ROSA M) 10 MCG (400 UNITS)/ML solution Active MULTIPLE VITAMINS-CALCIU M PO Active Probiotic Product (PROBIOTIC PO) Activ e Misc Natural Products (AIRBORNE ELDERBERRY PO) Activ e fluticasone propionate (FLONASE) 50 MCG/ACT nasal spray 1 Active mometasone (Elocon) 0.1 % solution (lotion) APPLY DAILY TO HANDS 4 Active Trulicity 1.5 MG/0.5ML injection 1.5 MG BY SUBCUTANEOUS ROUTE ONCE A WEEK. 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 Encounters Date Type Department Care Team Description 11/23/2024 3:15 PM CDT Office Visit [facility] - Cardiology [facility], [address] [address] Darren Morris MD CAD in mary[place] ig[place] artery (Primary Dx); Essential hypertension 11/23/2024 Travel 11/16/2024 Refill [facility] - Cardiology [facility], [address] [address] Darren Morris MD Refill Request from Last 3 Months Immunizations Immunization Administration Dates Next Due TDAP (7yrs+) 10/11/2019 Social History Tobacco Use Types Packs/Day Years Used Date Smoking Tobacco: Former Cigarettes Q uit: 2017 Smokeless Tobacco: Never Tobacco Cessation:Counseling Given: Not Answered Alcohol Use Standard Drinks/Week Comments No 0 (1 standard drink = 0.6 oz pur e alcohol) Comments No Sex and Gender Information Value Date Recorded Sex Assigned at Not on file Legal Sex Female 4:12 PM CDT Gender Identity Not on file Sexual Orientation Not on file Last Filed Vital Signs Vital Sign Reading Time Taken Comments Blood Pressure 130/82 11/23/2024 3:02 PM CDT Pulse 88 11/23/2024 3:02 PM CDT Temperature 36.8 C (98.2 F) 10/27/2022 3:15 PM CDT Respiratory Rate 14 07/10/2020 11:33 AM SPECIAL SERVICES DIRECTOR Oxygen Saturation 96% 11/23/2024 3:02 PM CDT Inhaled Oxygen Concentration - - Weight 94.8 kg (209 lb) 11/23/2024 3:02 PM CDT Height 152.4 cm (5') 11/23/2024 3:02 PM CDT Body Mass Index 40.82 11/23/2024 3:02 PM CDT Plan of Treatment Upcoming Encounters Date Type Department Care Team (Late st Contact Info) Description 11/22/2025 10:00 AM CDT Office Visit [facility] - Cardiology [address] [facility] [place] [address] [place] [address] Darren Morris MD [address] [facility] [address] [place] [address] Health Maintenance Due Date Last Done Comments COLOGUARD (AGES 45-75) - COLON CA SCREENING 1973 COLON MONITORING 1973 COLONOSCOPY - COLON CA SCREENING 1973 CT COLONOGRAPHY - COLON CA SCREENING 1973 Colorectal Cancer Screening 1973 FIT - COLON CA SCREENING 1973 FLEX SIG - COLON CA SCREENING 1973 HIV SCREENING 1988 HEPATITIS C SCREENING 03/12/1991 HEPATITIS B VACCINE (1 of 3 - 19+ 3-dose series) 1992 PNEUMOCOCCAL VACCINE 50+ (1 of 1 - PCV) 2023 ZOSTER VACCINE (1 of 2) 2023 COVID-19 VACCINE (1 - 2023- season) 2024 DEPRESSION SCREENING 07/27/2024 PAP SMEAR 01/14/2025 01/14/2022, 08/25/2017 INFLUENZA VACCINE (#1) 2025 MAMMOGRAM 01/26/2026 01/27/2024, 07/0 09/2023, 01/24/2022, Additional history exists SCREENING FOR DIABETES 10/15/2027 5, 06/15/2024, 10/13/2023, Additional history exists DTAP/TDAP/TD VACCINES (2 - Td or Tdap) 10/10/2029 10/11/2019 HIB VACCINE Aged Out No longer eligi ble based on patient's age to complete this topic HPV VACCINE Aged Out No longer eligi ble based on patient's age to complete this topic MENINGOCOCCAL (Group B) VACCINE SHARED DECISION-MAKING Aged Out No longer eligible based on patient's age to complete this topic MENINGOCOCCAL GROUPS A/C/Y/W VACCINE Aged Out No longer eligible based on patient's age to complete this topic Medical Devices Implanted Type Area Licensed Mental Health Professional Device Identifier Shelf Expiration Date Model / Serial / Lot Stent Cor 16mm 2.25mm 2.6-2.1fr Implanted:Qty: 1 on 02/09/2018 by Bienvenido Johnson MD at [facility] Left: Coronary [employer] 09/10/2018 [id number] / / [id number] Description:1st daig Stent Cor 12mm 2.25mm 2.6-2.1fr Implanted:Qty: 1 on 02/09/2018 by Bienvenido Johnson MD at [facility] Left: Coronary [employer] 06/29/2018 [id number] / / [id number] Description:OM Stent [employer] Monrail 2.50mm X 32mm Implanted:Qty: 1 on 02/09/2018 by Bienvenido Johnson MD at [facility] Right: Coronary [employer] Sc[employer]ed 12/02/2019 [id number] / / [id number] Description:RCA Procedures Procedure Name Priority Date/Time Associated Diagnosis Comments BASIC METABOLIC PANEL (CALCIUM TOTAL) Routine 02/09/2018 8:21 AM CDT 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 Hemolysis is known to cause elevations in this analyte. Caution should be exercised in the interpretation of this result. Recommend repeat testing if clinically indicated. Chloride 104 98 - 107 mmol/L 02/09/2018 9:26 AM [facility] CO2 21(L) 22 - 29 mmol/L 02/09/2018 9:26 AM [facility] Glucose 90 70 - 115 mg/dL 02/09/2018 9:26 AM [facility] Calcium 9.2 8.4 - 10.2 mg/dL 02/09/2018 9:26 AM [facility] Anion Gap 17 8 - 18 02/09/2018 9:26 AM [facility] BUN/Creatinine Ratio 18 7 - 23 02/09/2018 9:26 AM [facility] Osmolality Calculated 286 270 - 300 mOsm/kg 02/09/2018 9:26 AM [facility] eGFR >60 >60 mL/min/1. 73 m2 02/09/2018 9:26 AM [facility] Blood BLOOD SPECIMEN / Unknown Venipuncture / Unknown 02/09/2018 8:21 AM T 02/09/2018 8:53 AM [facility] Bienvenido Johnson MD LAB - CHEMISTRY ORDERABLES Final Result [facility] [address] [phone] from Last 3 Months or Most Recently Relevant to Health Maintenance [place] [address] [place] [address] [facility] Advance Directives * Full Code (Latest Code Status on File) Date Activated Date Inactivated Comments 02/09/2018 5:58 PM 02/10/2018 10:34 AM * Full Code Date Activated Date Inactivated Comments 02/09/2018 4:47 PM 02/09/2018 5:58 PM Care Teams Benefits Manager Relationship Specialty Start Date End Date Nav Hawkins MD PCP - General 12/28/17
--- OUTSIDE RECORDS SUMMARY | 2025-02-01 17:44 | XMS_ITS | Encounter Summary ---
Author Organization [facility] Address [address] [place] [address] Phone Care Team Providers Care Carpenter Rough Name Role Phone Nav Hawkins MD Primary Care Provider Phillip Sampson MD Unavailable Vivien Wilson MD Unavailable Shefali Rouse APRN, CNP Unavailable [phone] Lencho Vee MD Unavailable [phone] Reason for Visit * Reason Comments Medication Refill Encounter Details Date Type Department Care Team (Late st Contact Info) Description 10/17/2023 Refill [facility] - Family Medicine [facility] #2 [place] [address] Nav Hawkins MD #[address] [address] Medication Refill Social History Tobacco Use Types [...] encounter Miscellaneous Notes * Telephone Encounter - Leni Childress RN - 10/18/2023 2:57 PM CDT Medication(s) refilled and signed per [facility] Chronic Medication Refill Standing Order for Pediatricand Adult Patients. Requested Prescriptions Pending Prescriptions Disp Refills pantoprazole (PROTONIX) 40 MG Tablet Delayed Response [Pharmacy Med Name: PANTOPRAZOLE SOD DR 40 MGTAB] 30 Tablet 3 Sig: TAKE 1 TABLET BY MOUTH EVERY DAY Proton Pump Inhibitors Protocol Passed - 10/17/2023 12:33 AM Passed - No positive test in the past 12 months or most recent test was negative Passed - Visit with relevant provider in past 12 months or upcoming 90 days Recent Visits Date Type Provider Dept 04/16/23 Office Visit Nav Hawkins MD [facility] [place] Showing recent visits within past 365 days and meeting all other requirements Future Appointments Date Type Provider Dept 10/23/23 Appointment Nav Hawkins MD [facility] [place] Showing future appointments within next 90 days and meeting all other requirements Passed - No active on record documented in this encounter Plan of Treatment Upcoming Encounters Date Type Department Care Team (Late st Contact Info) Description 04/11/2025 8:00 AM CDT Office Visit [facility] - Endocrinology - [place] [address]2 [place] [address] Vivien Wilson MD [address] [phone] 04/28/2025 7:20 AM CDT Lab [facility] #[address] [address] [facility] [place] Lab/Ancillary 05/05/2025 8:45 AM CDT Office Visit [facility] Medical [facility] - Family Medicine - [place] #2 [place] [address] Nav Hawkins MD #[address] [address] 05/18/2025 10:00 AM CDT Office Visit [facility] - Pulmonology & Sleep Medicine - [place] #2 [place] [address] Phillip Sampson MD #2 [place] [address] documented as of this encounter Visit Diagnoses Diagnosis Encounter for immunization Need for other specified prophylactic vaccination against single bacterial disease Chronic fatigue Other malaise and fatigue documented in this encounter Additional Health Concerns Assessment Noted Time PHQ-9 Depression Total Score: 0 08/07/19 21 2:07 PM TRACK SUPERINTENDENT documented as of this encounter Care Teams Carpenter Rough Relationship Specialty Start Date End Date Nav Hawkins MD #[address] [address] PCP - General Family Medicine 09/18/16 Phillip Sampson MD #2 [place] [address] Consulting Physician Pulmonary Disease 10/17/21 Vivien Wilson MD #[address] [address] Consulting Physician Endocrinology 02/17/22 Shefali Rouse APRN, CHUCK [facility] [address] [id number] Nurse Practitioner Advanced Practice Nurse 04/30/22 Lencho Vee MD #2 [place] [address] Consulting Physician Obstetrics & Gynecology 01/25/25 documented as of this encounter
--- OUTSIDE RECORDS SUMMARY | 2025-02-01 17:44 | XMS_ITS | Encounter Summary ---
Author Organization [facility] Address [address] [place] [address] Phone Care Team Providers Care Personnel Analyst Name Role Phone Nav Hawkins MD Primary Care Provider [phone] Phillip Sampson MD Unavailable Vivien Wilson MD Unavailable Shefali Rouse APRN, CNP Unavailable [phone] Lencho Vee MD Unavailable [phone] Reason for Visit * Reason Comments Medication Refill Encounter Details Date Type Department Care Team (Late st Contact Info) Description 12/28/2021 Refill [facility] - Endocrinology - [place] [address] [place] [address] Vivien Wilson MD #[address] [address] Medication Refill Social History Tobacco [...] Telephone Encounter - Itzel Alfaro RN - 12/30/2021 8:45 AM CDT Requested Prescriptions Pending Prescriptions Disp Refills ??? atorvastatin (LIPITOR) 40 MG Tablet [Pharmacy Med Name: ATORVASTATIN 40 MG TABLET] 90 Tablet 1 Sig: TAKE 1 TABLET BY MOUTH EVERY DAY Next appt: 01/08/2022 documented in this encounter Plan of Treatment Upcoming Encounters Date Type Department Care Team (Late st Contact Info) Description 04/11/2025 8:00 AM CDT Office Visit [facility] Medical Group - Endocrinology - [place] #2 [place] [address] Vivien Wilson MD #[address] [address] 04/28/2025 7:20 AM CDT Lab [facility] #2 [facility] [address] [place] [address] [place] Lab/Ancillary 05/05/2025 8:45 AM CDT Office Visit [facility] Medical Group - Family Medicine [facility] #2 [place] [address] Nav Hawkins MD #2 [facility] [address] [place] [address] 05/18/2025 10:00 AM CDT Office Visit [facility] - Pulmonology & Sleep Medicine [facility] #2 [place] [address] Phillip Sampson MD #2 [place] [address] documented as of this encounter Visit Diagnoses Not on filedocumented in this encounter Additional Health Concerns Infection Onset Date Last Indicated Resolved Time COVID - 19 05/14/2022 05/14/2022 05/24/2022 12:1 6 AM CDT Assessment Noted Time PHQ-9 Depression Total Score: 0 08/07/19 21 2:07 PM SENIOR DATA ANALYST documented as of this encounter Care Teams Personnel Analyst Relationship Specialty Start Date End Date Nav Hawkins MD #[address] [address] PCP - General Family Medicine 09/18/16 Phillip Sampson MD #2 [place] [address] Consulting Physician Pulmonary Disease 10/17/21 Vivien Wilson MD #2 [facility] [address] [place] [address] Consulting Physician Endocrinology 02/17/22 Shefali Rouse APRN, CRATING AND MOVING ESTIMATOR #2 [facility] [address] [place] [address] Nurse Practitioner Advanced Practice Nurse 04/30/22 Lencho Vee MD #2 [place] [address] Consulting Physician Obstetrics & Gynecology 01/25/25 documented as of this encounter
--- OUTSIDE RECORDS SUMMARY | 2025-02-01 17:44 | XMS_ITS | Encounter Summary ---
Author Organization [facility] Address [address] [place] [address] Phone Care Team Providers Care Master Plumber Name Role Phone Nav Hawkins MD Primary Care Provider [phone] Phillip Sampson MD Unavailable Vivien Wilson MD Unavailable Shefali Rouse APRN, CNP Unavailable [phone] Lencho Vee MD Unavailable [phone] Reason for Visit * Reason Comments Medication Refill Encounter Details Date Type Department Care Team (Late st Contact Info) Description 06/22/2022 Refill [facility] - Endocrinology - [place] #[address] [place] [address] Vivien Wilson MD #[address] [address] Medication Refill Social History Tobacco [...] suspected to have Coronavirus/COVID-19? No / Unsure 06/03/2022 3:30 PM CLERK documented as of this encounter Miscellaneous Notes * Telephone Encounter - Itzel Alfaro RN - 06/23/2022 9:47 AM CLERK Requested Prescriptions Pending Prescriptions Disp Refills ??? atorvastatin (LIPITOR) 40 MG Tablet [Pharmacy Med Name: ATORVASTATIN 40 MG TABLET] 90 Tablet 1 Sig: TAKE 1 TABLET BY MOUTH EVERY DAY ??? Jardiance 25 MG Tablet [Pharmacy Med Name: JARDIANCE 25 MG TABLET] 30 Tablet 2 Sig: TAKE 1 TABLET BY MOUTH EVERY DAY Next appt: 09/18/2022 K documented in this encounter Plan of Treatment Upcoming Encounters Date Type Department Care Team (Late st Contact Info) Description 04/11/2025 8:00 AM CDT Office Visit [facility] - [place] [facility] [place] [address] Vivien Wilson MD #2 [facility] [address] [place] [address] 04/28/2025 7:20 AM CDT Lab [facility] [address] [place] [address] [facility] Lab/Ancillary 05/05/2025 8:45 AM CDT Office Visit [facility] Medical [facility] - Family [facility] - [place] #2 [place] [address] Nav Hawkins MD #2 [facility] [address] [place] [address] 05/18/2025 10:00 AM CDT [facility] [place] #2 [place] [address] Phillip Sampson MD #2 [place] [address] documented as of this encounter Visit Diagnoses Not on filedocumented in this encounter Additional Health Concerns Assessment Noted Time PHQ-9 Depression Total Score: 0 08/07/19 21 2:07 PM CLERK documented as of this encounter Care Teams Master Plumber Relationship Specialty Start Date End Date Nav Hawkins MD #2 [facility] [address] [place] [address] PCP - General Family Medicine 09/18/16 Phillip Sampson MD #2 [place] [address] Consulting Physician Pulmonary Disease 10/17/21 Vivien Wilson MD #2 [facility] [address] [place] [address] Consulting Physician Endocrinology 02/17/22 Shefali Rouse APRN, TIMBER SETTER #2 [facility] [address] [place] [address] Nurse Practitioner Advanced Practice Nurse 04/30/22 Lencho Vee MD #2 [place] [address] Consulting Physician Obstetrics & Gynecology 01/25/25 documented as of this encounter
--- OUTSIDE RECORDS SUMMARY | 2025-02-01 17:44 | XMS_ITS | Encounter Summary ---
Author Organization [facility] Address [address] [place] [address] Phone Care Team Providers Care Valve Machine Operator Name Role Phone Nav Hawkins MD Primary Care Provider [phone] Phillip Sampson MD Unavailable Vivien Wilson MD Unavailable Shefali Rouse APRN, COMMUNITY HEALTH OUTREACH WORKER Unavailable [phone] Lencho Vee MD Unavailable [phone] Reason for Visit * Reason Onset Date Comments Prior Authorization 08/19/2021 Peer to Peer offered and expires on 08/20/2021 Encounter Details Date Type Department Care Team (Late st Contact Info) Description 08/19/2021 Telephone [facility] Outpatient [address] [place] [address] Phillip Sampson MD #2 [place] [address] Prior Authorization (Peer to Peer offered and expires on 08/20/2021) Social History Tobacco Use Types Packs/Day Years Used Date Smoking Tobacco: Former Cigarettes 0.5 25 0 04/20/1991 - 04/20/2016 Smokeless Tobacco: Never Alcohol Use Standard Drinks/Week Comments No 0 (1 standard drink = 0.6 oz pur e alcohol) PHQ-2 Answer Date Recorded Total Score - Questions 1-9 0 07/27 Education Answer Date Recorded What is the [...] encounter Miscellaneous Notes * Telephone Encounter - Kae Long - 08/19/2021 12:17 PM CST Images from the original note were not included. Auth Denied-P2P on 08/20/2021. Ordering Provider: Internal Appointment Info: Clinic: [facility] Provider: [email or web address] Appt Date/Time: Thursday 4:00 PM Payor + Plan: [place] [facility] [place] CPT/Test: CT-CHEST DIAG W/O CONTRAST 22054 Authorization denied through: [employer] Website Phone number called: [phone] Reference number / small business sales representative's name and time of call: Aurea at 08/14/21 at 10:30am Estimated Amount: $2,264.00 Reason for denial: Your provider ordered a special test (CT-Computerized Tomography) which is a series of X-Rays images taken from different angles around your body and uses computer processing to create cross-section images (slices) of the bones, blood vessels and soft tissues inside your body. A [facility] doctor has looked at this request using standard and accepted guidelines. The test cannot be approvedat this time. The information that was sent in you have a lung nodule. It does not show results of a radiologist report of prior testing showing a nodule that needs further testing. The according to the standard rules, your provider must show medical need before this test can be approved. Please talk to your provider on what else can be done. Add'l Steps Taken: Pt Notified & Reached out to Provider Peer to Peer review offered by Payer: Yes Peer to Peer review expires: 08/20/21 Case #: [id number] Ordering Physician: Phillip Sampson MD Phys. Notified? Yes via a Telephone Encounter message sent on 08/14/2021 Peer to Peer Instructions: Phone # to call: [phone] first press #45 for [place], then press #1, & then press # 1 forPeer to Peer review. Please note that [facility] has long hold times. Do not leave a voicemail message because they will notreturn your call. If you are unable to remain on hold, please have a front line supervisor or oneof your staff members to wait on hold until a [facility] doctor or rep comes on the phone. Once they have come on the phone, then your executive asst or staff member can come get you to speak to them. ER GROWER documented in this encounter Plan of Treatment Upcoming Encounters Date Type Department Care Team (Late st Contact Info) Description 04/11/2025 8:00 AM CDT Office Visit [facility] Medical Group - Endocrinology - [place] #2 [place] [address] Vivien Wilson MD #2 [facility] [address] [place] [address] 04/28/2025 7:20 AM CDT Lab [facility] #2 [facility] [address] [place] [address] [facility] 05/05/2025 8:45 AM CDT Office Visit [facility] Medical Group - Family Medicine - [place] #2 [place] [address] Nav Hawkins MD #2 [facility] [address] [place] [address] 05/18/2025 10:00 AM CDT [facility] #2 [place] [address] Phillip Sampson MD #2 [place] [address] documented as of this encounter Visit Diagnoses Not on filedocumented in this encounter Additional Health Concerns Infection Onset Date Last Indicated Resolved Time COVID - 19 05/14/2022 05/14/2022 05/24/2022 12:1 6 AM CDT Assessment Noted Time PHQ-9 Depression Total Score: 0 08/07/19 21 2:07 PM OYSTER GROWER documented as of this encounter Care Teams Valve Machine Operator Relationship Specialty Start Date End Date Nav Hawkins MD #2 [facility] [address] [place] [address] PCP - General Family Medicine 09/18/16 Phillip Sampson MD #2 [place] [address] Consulting Physician Pulmonary Disease 10/17/21 Vivien Wilson MD #2 [facility] [address] [place] [address] Consulting Physician Endocrinology 02/17/22 Shefali Rouse APRN, COMMUNITY HEALTH OUTREACH WORKER #2 [facility] [address] [place] [address] Nurse Practitioner Advanced Practice Nurse 04/30/22 Lencho Vee MD #2 [place] [address] Consulting Physician Obstetrics & Gynecology 01/25/25 documented as of this encounter
--- OUTSIDE RECORDS SUMMARY | 2025-02-01 17:44 | XMS_ITS | Encounter Summary ---
Author Organization [facility] Address [address] [place] [address] Phone Care Team Providers Care Form Worker Name Role Phone Nav Hawkins MD Primary Care Provider [phone] Phillip Sampson MD Unavailable Vivien Wilson MD Unavailable Shefali Rouse APRN, CNP Unavailable [phone] Lencho Vee MD Unavailable [phone] Reason for Visit * Reason Comments WWE Encounter Details Date Type Department Care Team (Late st Contact Info) Description 01/31/2025 2:30 PM CDT Office Visit [facility] Medical Group - Obstetrics & Gynecology [facility] #2 [place] [address] Lencho Vee MD #2 [place] [address] Encounter for well woman exam with routine gynecological exam (Primary Dx); Perimenopause Discharge Disposition: Discharged to home or Selfcare Social History Tobacco Use Types Packs/Day Years Used Date Smoking Tobacco: Former Cigarettes 0.5 25 0 04/20/1991 - 04/20/2016 Smokeless Tobacco: Never Tobacco Cessation:Counseling Given: Not Answered Alcohol Use Standard Drinks/Week Comments No 0 (1 standard drink = 0.6 oz pur e alcohol) [facility] Utilities Answer Date Recorded In the past [...] any clubs o r organizations such as taoist groups, unions, fraternal or athletic groups, or [...] Total Score - Questions 1-9 0 03/28 [facility] Occupational Stress Questionnaire [...] place to sleep or slept in a mcfp (including now)? No 10/22/2023 Housing Stability Vital Sign Answer Geraldo e Recorded In the last 12 months, was t here a time when you were not able to pay the mortgage or rent on time? No 11/03/2024 In the past 12 months, how m any times have you moved where you were living? 0 11/03/2024 At any time in the [facility] were you homeless or living in a mcfp (including now)? No 11/03/2024 Education Answer Date [...] Pulse 90 01/31/2025 2:37 PM CDT Temperature - - Respiratory Rate 16 01/31/2025 2:37 PM CDT Oxygen Saturation 96% 01/31/2025 2:37 PM CDT Inhaled Oxygen Concentration - - Weight 91.1 kg (200 lb 12.8 oz) 01/31/2025 2:37 PM CDT Height 152.4 cm (5') 01/31/2025 2:37 PM CDT Body Mass Index 39.22 01/31/2025 2:37 PM CDT documented in this encounter Progress Notes * Lencho Vee MD - 01/31/2025 2:30 PM CDT 49 yo here for annual and she is doing well. Needs pap today. She is perimenopausal as well. She has no other complaints and she is doing well. Her cycles are irregular now and she did skip a month. She has started diet and exercise and she sees Dr. Hawkins. She has no other complaints today. She is s leeping OK, but has never slept well. Review of Systems - A 14 point comprehensive review of systems was negative, except as documented in HPI. Past Medical History Positives Diagnosis Date Adenomatous colon polyp CAD (coronary artery disease) Stent x3. HLD (hyperlipidemia) HTN (hypertension) Lung nodule Obesity FAYE (obstructive sleep apnea) Pancreatitis 03/2020 Recurrent Current Medications[1] Past Surgical History[2] PE: AFVSS CV:rrr LUNGS:ctab AB: soft,nt, +bs EX: no edema Pelvic exam: normal external genitalia, vulva, vagina, cervix, uterus and adnexa, VULVA: normal appearing vulva with no masses, tenderness or lesions, VAGINA: normal appearing vagina with normal color and discharge, no lesions, CERVIX: normal appearing cervix without discharge or lesions, UTERUS: uterus is normal size, shape, consistency and nontender, ADNEXA: normal adnexa in size, nontender andno masses, PAP: Pap smear done today, exam chaperoned by Albina.. A/P: Normal exam and pap with HPV done. Doing well. Discussed diet and exercise at length. Questions answered. Perimenopausal timeframe noted. Irregular cycles due to this. [1] Current Outpatient Medications Medication Sig Dispense Refill [...] (PROBIOTIC DAILY PO) Take by mouth nightly. No current facility-administered medications for this visit. [2] Past Surgical History: Procedure Laterality Date SECTION CHOLECYSTECTOMY COLONOSCOPY N/A 07/23/2020 Procedure: COLONOSCOPY-CECAL POLYP (COLD SNARE); Surgeon: Jakub Pitts DO; Location: [facility]; Service: Gastroenterology CORONARY ANGIOPLASTY WITH STENT PLACEMENT 2018 x3 ENDOSCOPIC ULTRASOUND OTHER SURGICAL HISTORY left eye surgery documented in this encounter Plan of Treatment Upcoming Encounters Date Type Department Care Team (Late st Contact Info) Description 04/11/2025 8:00 AM CDT Office Visit [facility] Medical Group - Endocrinology - [place] #2 [place] [address] Vivien Wilson MD #2 [facility] [address] [place] [address] 04/28/2025 7:[address] [facility] #2 [facility] [address] [place] [address] [facility] Lab/Ancillary 05/05/2025 8:45 AM CDT Office Visit [facility] Medical Group - Family Medicine - [place] #2 [place] [address] Nav Hawkins MD #2 [facility] [address] [place] [address] 05/18/2025 10:00 AM CDT Office Visit [facility] Medical [facility] - Pulmonology & Sleep Medicine - [place] #2 [place] [address] Phillip Sampsno MD #2 [place] [address] Pending Results Name Type Priority Associated Diagnoses Date /Time PATHOLOGY CYTOLOGY STATISTICAL PROGRAMMER ANALYST Pathology Routine Encounter for well woman exam with routine gynecological exam 01/31/2025 3:05 PM CDT Scheduled Orders Name Type Priority Associated Diagnoses Orde r Schedule PATHOLOGY CYTOLOGY STATISTICAL PROGRAMMER ANALYST Pathology Routine Encounter for well woman exam with routine gynecological exam Expected: 01/31/2025, Expires: 02/14/2025 documented as of this encounter Procedures Procedure Name Priority Date/Time Associated Diagnosis Comments HUMAN PAPILLOMA VIRUS (HPV) Routine 01/31/2025 3:05 PM CDT Encounter for well woman exam with routine gynecological exam documented in this encounter Results * HUMAN PAPILLOMA VIRUS (HPV) (01/31/2025 3:05 PM CDT) HPV TYPE 16 NEGATIVE NEGATIVE 02/01/2025 11:19 AM CDT [facility] Comment: A negative high-risk HPV result does [...] TYPE 18 NEGATIVE NEGATIVE 02/01/2025 11:19 AM CDT [facility] Comment: A negative high-risk HPV result does [...] TYPES, PCR NEGATIVE NEGATIVE 02/01/2025 11:19 AM CDT [facility] Comment: The following Other High Risk types [...] SCREENING OR DIAGNOSTIC SCREENING 02/01/2025 11:19 AM CDT [facility] Other Non-Phlebotomy Collection / Unknown 01/31/2025 3:05 PM CDT 01/31/2025 3:05 PM CDT Narrative [facility] - 02/01/2025 11:19 AM CDT This test was performed using NOAH 5800 Real Time PCR. us Lencho Vee MD LAB SEND OUTS Final Result [facility] [address] [place] [address], [facility] #[address] [place] [address] documented in this encounter Visit Diagnoses Diagnosis Encounter for well woman exam with routine gynecological exam- Primary Perimenopause Symptomatic menopausal or female climacteric states documented in this encounter Additional Health Concerns Assessment Noted Time PHQ-9 Depression Total Score: 0 04/22/20 8:39 AM CDT documented as of this encounter Care Teams Form Worker Relationship Specialty Start Date End Date Nav Hawkins MD #2 [facility] [address] [place] [address] PCP - General Family Medicine 09/18/16 Phillip Sampson MD [facility] [facility] [address] Consulting Physician Pulmonary Disease 10/17/21 Vivien Wilson MD #2 [facility] [address] [place] [address] Consulting Physician Endocrinology 02/17/22 Shefali Rouse APRN, CHUCK #2 [facility] [address] [place] [address] Nurse Practitioner Advanced Practice Nurse 04/30/22 Lencho Vee MD #2 [facility] [place] [address] Consulting Physician Obstetrics & Gynecology 01/25/25 documented as of this encounter
--- OUTSIDE RECORDS SUMMARY | 2025-02-01 17:44 | XMS_ITS | Encounter Summary ---
Author Organization [facility] Address [address] [place] [address] Phone Care Team Providers Care Five Piece Expansion Maker Hand Name Role Phone Nav Hawkins MD Primary Care Provider [phone] Phillip Sampson MD Unavailable Vivien Wilson MD Unavailable Shefali Rouse APRN, [employer] CONSULTANT Unavailable [phone] Lencho Vee MD Unavailable [phone] Reason for Visit * Reason Onset Date Comments Prior Authorization 08/14/2021 Peer to Peer is needed and expires on 08/20/21, test does not meet criteria. Call Prem [phone] Encounter Details Date Type Department Care Team (Late st Contact Info) Description 08/14/2021 Telephone [facility] Outpatient [address] [place] [address] Phillip Sampson MD [address] [place] [address] Prior Authorization (Peer to Peer is needed and expires on 08/20/21, test does not meet criteria. Call Prem [phone]) Social History Tobacco Use Types Packs/Day Years [...] * Telephone Encounter - Kae Long - 08/16/2021 10:52 AM CST Please note that the Peer to Peer Review for Angeles's test expires on 08/20/21. FING AND SCHEDULING COORDINATOR * Telephone Encounter - Kae Long - 08/14/2021 10:25 AM CST Images from the original note were not included. Auth Denied-P2P offered Ordering Provider: Internal Appointment Info: Clinic: [facility] Provider: [email or web address] Appt Date/Time: Thursday 4:00 PM Payor + Plan: MEDICAID [place] [facility] [place]ICA[place] CPT/Test: CT-CHEST DIAG W/O CONTRAST 26913 Authorization denied through: [employer] Website Phone number called: [phone] Reference number / novelties sales representative's name and time of call: Aurea at 08/14/21 at 10:30am Estimated Amount: $2,264.00 Reason for denial: Your provider ordered a special test (CT-Computerized Tomography) which is a series of X-Rays images taken from different angles around your body and uses computer processing to create cross-section images (slices) of the bones, blood vessels and soft tissues inside your body. A [facility] doctor has looked at this request using [...] to Peer review expires: 08/20/21 Case #: [id number] Ordering Physician: Phillip Sampson MD Phys. Notified? Yes via a Telephone Encounter message Peer to Peer Instructions: Phone # to call: [phone] first press #45 for [place], then press #1, & then press # 1 forPeer to Peer review. Please note that [facility] has long hold times. Do not leave a voicemail message because they will notreturn your call. If you are unable to remain on hold, please have a front desk representative or oneof your staff members to wait on hold until a [place] doctor or rep comes on the phone. Once they have come on the phone, then your drum carrier or staff member can come get you to speak to them. Notification Made to Patient: Yes Call type: Outbound Contact Made: Sent [facility] Message Reason for Call: Authorization Status/Issue FING AND SCHEDULING COORDINATOR documented in this encounter Plan of Treatment Upcoming Encounters Date Type Department Care Team (Late st Contact Info) Description 04/11/2025 8:00 AM CDT Office Visit [facility] - [facility] [place] [address] [place] [address] Vivien Wilson MD #[address] [address] 04/28/2025 7:20 AM CDT Lab [facility] [address] [address] [facility] Lab/Ancillary 05/05/2025 8:45 AM CDT Office Visit [facility] Family [facility] [place] [address] [place] [address] Nav Hawkins MD #[address] [address] 05/18/2025 10:00 AM CDT Office Visit [facility] [place] [address] [place] [address] Phillip Sampson MD [address] [facility] [place] [address] documented as of this encounter Visit Diagnoses Not on filedocumented in this encounter Additional Health Concerns Infection Onset Date Last Indicated Resolved Time COVID - 19 05/14/2022 05/14/2022 05/24/2022 12:1 6 AM CDT Assessment Noted Time PHQ-9 Depression Total Score: 0 08/07/19 21 2:07 PM STAFFING AND SCHEDULING COORDINATOR documented as of this encounter Care Teams Five Piece Expansion Maker Hand Relationship Specialty Start Date End Date Nav Hawkins MD [address] [address] PCP - General Family Medicine 09/18/16 Phillip Sampson MD [address] [place] [address] Consulting Physician Pulmonary Disease 10/17/21 Vivien Wilson MD [address] [address] Consulting Physician Endocrinology 02/17/22 Shefali Rouse APRN, [facility] [address] [address] Nurse Practitioner Advanced Practice Nurse 04/30/22 Lencho Vee MD [address] [facility] [place] [address] Consulting Physician Obstetrics & Gynecology 01/25/25 documented as of this encounter
--- OUTSIDE RECORDS SUMMARY | 2025-02-01 17:44 | XMS_ITS | Encounter Summary ---
Author Organization [facility] Address [address] [place] [address] Phone Care Team Providers Care Manager Engagement Name Role Phone Nav Hawkins MD Primary Care Provider [phone] Phillip Sampson MD Unavailable Vivien Wilson MD Unavailable Shefali Rouse APRN, CNP Unavailable [phone] Lencho Vee MD Unavailable [phone] Reason for Visit * Reason Comments Medication Refill Encounter Details Date Type Department Care Team (Late st Contact Info) Description 10/02/2023 Refill [facility] - Family Medicine [facility] [address]2 [place] [address] Nav Hawkins MD #[address] [address] Medication Refill Social History Tobacco Use Types [...] Telephone Encounter - Leni Childress RN - 10/03/2023 9:27 AM PERSONNEL CLERK Medication failed the protocol, provider to review and approve the medication order if appropriate. Requested Prescriptions Pending Prescriptions Disp Refills mometasone (ELOCON) 0.1 % Solution [Pharmacy Med Name: MOMETASONE FUROATE 0.1% SOLN] 60 mL 0 Sig: APPLY DAILY TO HANDS Not Delegated - Topical Steroids Protocol Failed - 10/02/2023 10:24 PM Failed - This refill cannot be delegated Passed - Visit with relevant provider in past 12 months or upcoming 90 days Recent Visits Date Type Provider Dept 04/16/23 Office Visit Nav Hawkins MD [facility] [place] 10/14/22 Office Visit Nav Hawkins MD [facility] [place] Showing recent visits within past 365 days and meeting all other requirements Future Appointments Date Type Provider Dept 10/23/23 Appointment Nav Hawkins MD [facility] Showing future appointments within next 90 days and meeting all other requirements ONNEL CLERK documented in this encounter Plan of Treatment Upcoming Encounters Date Type Department Care Team (Late st Contact Info) Description 04/11/2025 8:00 AM CDT Office Visit [facility] - [facility] - [place] [address] [place] [address] Vivien Wilson MD #[address] [address] 04/28/2025 7:20 AM CDT Lab [facility] [address] [address] [facility] 05/05/2025 8:45 AM CDT Office Visit [facility] Medical [facility] - Family Medicine - [place] [address] [place] [address] Nav Hawkins MD [address] [address] 05/18/2025 10:00 AM CDT Office Visit [facility] - Pulmonology & Sleep Medicine - [place] [address] [place] [address] Phillip Sampson MD [address] [place] [address] documented as of this encounter Visit Diagnoses Not on filedocumented in this encounter Additional Health Concerns Assessment Noted Time PHQ-9 Depression Total Score: 0 08/07/19 21 2:07 PM PERSONNEL CLERK documented as of this encounter Care Teams Manager Engagement Relationship Specialty Start Date End Date Nav Hawkins MD [address] [address] PCP - General Family Medicine 09/18/16 Phillip Sampson MD [address] [place] [address] Consulting Physician Pulmonary Disease 10/17/21 Vivien Wilson MD [address] [address] Consulting Physician Endocrinology 02/17/22 Shefali Rouse APRN, CHUCK [address] [address] [address] Nurse Practitioner Advanced Practice Nurse 04/30/22 Lencho Vee MD [address] [place] [address] Consulting Physician Obstetrics & Gynecology 01/25/25 documented as of this encounter
--- NOTE | 2025-02-01 17:48 | ED_ITS ---
HPI - Ear Problem General Chief complaint: Ear Stated complaint: Earache Time Seen by Provider: 02/01/25 17:53 Source: patient and RN notes reviewed Mode of arrival: ambulatory Limitations: no limitations History of Present Illness HPI Narrative: 49-year-old female presents with concern for worsening ear pain. She reports she was diagnosed with an external ear infection and started ciprofloxacin dexamethasone drops yesterday, she has had 3 doses. She reports her symptoms are getting worse. She reports pain in front of the ear below the ear. Reports the area hurts when she opens her mouth. She denies fever, body aches, chills, sweats. Denies drainage from the ear MD Complaint: ear pain Related Data Home Medications ?Medication ?Instructions ?Recorded ?Confirmed ?Last Taken ?Type aspirin 81 mg chewable tablet 81 mg PO DAILY 07/29/22 07/29/22 Unknown History atorvastatin 40 mg tablet 40 mg PO DAILY 07/29/22 07/29/22 Unknown History ezetimibe 10 mg tablet 10 mg PO DAILY 07/29/22 07/29/22 Unknown History metformin 500 mg tablet 500 mg PO BID 07/29/22 07/29/22 Unknown History metoprolol tartrate 25 mg tablet 25 mg PO BID 07/29/22 07/29/22 Unknown History pantoprazole 40 mg tablet,delayed 40 mg PO DAILY 07/29/22 07/29/22 Unknown History release amlodipine 10 mg tablet mg 02/01/25 Unknown History ciprofloxacin 0.3 %-dexamethasone drp 02/01/25 Unknown History 0.1 % ear drops,suspension dulaglutide 4.5 mg/0.5 mL mg subcut 02/01/25 Unknown History subcutaneous pen injector (Trulicity) liraglutide 0.6 mg/0.1 mL (18 mg/3 mg subcut 02/01/25 Unknown History mL) subcutaneous pen injector Allergies Allergy/AdvReac Type Severity Reaction Status Date / Time acetaminophen (From NyQuil) Allergy Unknown Hives Verified 07/29/22 13:28 dextromethorphan (From Allergy Unknown Hives Verified 07/29/22 13:28 NyQuil) doxylamine (From NyQuil) Allergy Unknown Hives Verified 07/29/22 13:28 pseudoephedrine (From NyQuil) Allergy Unknown Hives Verified 07/29/22 13:28 Review of Systems Review of Systems: CONSTITUTIONAL: Denies malaise, chills, sweats, or fever. EYES: Denies visual changes, redness, or discharge. ENT: Denies rhinorrhea, congestion, sinus pain, and sore throat. Reports worsening right ear pain, pain below the ear and in front of the ear CARDIOVASCULAR: Denies chest pain, palpitations, or edema. RESPIRATORY: Denies cough. Denies dyspnea. GASTROINTESTINAL: Denies abdominal pain, nausea, vomiting, diarrhea SKIN: Denies rash or itching. MUSCULOSKELETAL: Denies myalgia. NEUROLOGIC: Denies headache. All systems reviewed & are unremarkable except as noted in HPI and below PMFSH Comments At time of signature, agree with nursing past medical, surgical, social and family history. There is no relevant family history pertinent to the presenting complaint Exam Narrative: GENERAL: Well-appearing, well-nourished, and in no acute distress. HEAD: Normocephalic EYES: PERRLA, conjunctivae clear ENT: Nares clear. Mucous membranes moist. TM pearly scales with sharp light reflex on the left, right slightly visible and looks dull; right tragal tenderness with EAC erythema, edema, small amount of drainage, window of TM visible. Mild preauricular erythema, edema, tenderness noted extending below the ear. Oropharynx not erythematous without lesions. Tonsils not enlarged and without exudate, no drooling, no hoarseness, no trismus, uvula midline. NECK: Supple. Right cervical lymphadenopathy CHEST: No respiratory distress, speaks in full sentences. HEART: Regular rate and rhythm. No murmur heard. SKIN: Warm, dry, no rash. NEURO: Alert and oriented x3. PSYCH: Normal mood and affect Course Course Emergency Course: Patient is aware of diagnosis, understands and agrees to treatment plan. Anticipatory guidance given. Patient agrees to follow-up as directed and is aware of reasons to seek care at the emergency department. Portions of this record may have been created with voice recognition software Level of Care: Express Care Visit Vital Signs Vital signs: Reviewed. Medical Decision Making MDM Narrative Medical decision making narrative: I evaluated this in the express care. History is obtained from patient who is an independent historian and physical exam was performed.? Available medical records were reviewed. ? Exam findings and relevant testing show no acute concerns or changes; patient is non-toxic appearing and is in no distress. Differential diagnosis considered: Beasley virus, strep pharyngitis, allergic rhinitis, upper respiratory tract infection, sinusitis, rhinosinusitis, nasopharyngitis. viral pharyngitis, otitis media, otitis externa, preauricular cellulitis, mastoiditis, otitis effusion, cerumen impaction, foreign body. Exam findings show no acute concerns or changes; patient is non-toxic appearing and is in no distress. Patient is appropriate for outpatient treatment and follow- up. ? Differential diagnosis and treatment plan were discussed with the patient. Patient agrees with discussion and after shared medical decision making agrees with plan of care. All questions were answered to the patient's satisfaction. Patient is appropriate for outpatient treatment and follow-up. Critical Care Time Critical Care Time Critical Care Time: No Discharge Plan Discharge Clinical Impression: Preauricular cellulitis Patient Disposition: Home Condition: Stable Instructions: Antibiotic Form, Cellulitis (ED) Additional Instructions: Please follow up with your Primary Care Doctor within 48-72 hours - call for an appointment. Rest and elevate affected area; apply moist heat 3-4 times daily for 10-15 minutes. Take Motrin 600mg every 8 hours with food for pain. Please take Antibiotics as directed. If you experience any worsening redness, swelling, streaking (red lines), fever or chills please go to the ER Patient Language: Upper Sorbian Prescriptions: New amoxicillin-pot clavulanate 875-125 mg tablet 1 tablet PO Q12H 10 Days Qty: 20 0RF No Action amlodipine 10 mg tablet ciprofloxacin-dexamethasone 0.3-0.1 % drops,suspension liraglutide 0.6 mg/0.1 mL (18 mg/3 mL) pen injector SUBCUT Trulicity 4.5 mg/0.5 mL pen injector SUBCUT metoprolol tartrate 25 mg tablet 25 mg PO BID pantoprazole 40 mg tablet,delayed release (DR/EC) 40 mg PO DAILY atorvastatin 40 mg tablet 40 mg PO DAILY aspirin [Baby Aspirin] 81 mg Tablet,Chewable 81 mg PO DAILY ezetimibe 10 mg tablet 10 mg PO DAILY metformin 500 mg tablet 500 mg PO BID albuterol sulfate 90 mcg/actuation HFA aerosol inhaler 2 inh inhalation QID PRN (Reason: shortness of breath or wheezing) Qty: 8.5 0RF Follow-up/Referrals: Shruthi,Nav Craft MD [Primary Care Provider] - Time of Disposition: 18:01
== END 2025-02-01 18:11 | disposition home or self-care (01) ==
PROVIDERS: Emergency Provider Nurse Practitioner; PCP Internal Medicine
DX: H60.11 Cellulitis of right external ear (principal); E11.9 Type 2 diabetes mellitus without complications; Z79.84 Long term (current) use of oral hypoglycemic drugs; K21.9 Gastro-esophageal reflux disease without esophagitis; I10 Essential (primary) hypertension; E78.00 Pure hypercholesterolemia, unspecified; Z95.5 Presence of coronary angioplasty implant and graft; Z79.82 Long term (current) use of aspirin
CPT/HCPCS: 99213; G0463

== ENCOUNTER 2025-05-24 08:18 | Emergency (ER) | payer OTHER, SELFPAY ==
[2025-05-24 08:23] VITALS: BP 148/84; PULSE 87; RESP 16; TEMP 36.6; O2SAT 98
--- NOTE | 2025-05-24 08:28 | ED.SKABFB ---
HPI - Skin/Abscess/Foreign Bdy General Chief complaint: Skin/Abscess/Foreign Body Stated complaint: Poison Lindsay Time Seen by Provider: 05/24/25 08:27 Source: patient and RN notes reviewed Mode of arrival: ambulatory Limitations: no limitations History of Present Illness HPI narrative: 50-year-old female presents with concern for rash. 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 She is Benadryl without relief. She reports she feels like the rash is going in her mouth. She denies vomiting, swollen lips, swollen tongue, trouble breathing. MD complaint: rash Related Data Home Medications ?Medication ?Instructions ?Recorded ?Confirmed ?Last Taken ?Type aspirin 81 mg chewable tablet 81 mg PO DAILY 07/29/22 07/29/22 Unknown History atorvastatin 40 mg tablet 40 mg PO DAILY 07/29/22 07/29/22 Unknown History ezetimibe 10 mg tablet 10 mg PO DAILY 07/29/22 07/29/22 Unknown History metformin 500 mg tablet 500 mg PO BID 07/29/22 07/29/22 Unknown History metoprolol tartrate 25 mg tablet 25 mg PO BID 07/29/22 07/29/22 Unknown History pantoprazole 40 mg tablet,delayed 40 mg PO DAILY 07/29/22 07/29/22 Unknown History release amlodipine 10 mg tablet mg 02/01/25 Unknown History liraglutide 0.6 mg/0.1 mL (18 mg/3 mg subcut 02/01/25 Unknown History mL) subcutaneous pen injector Allergies Allergy/AdvReac Type Severity Reaction Status Date / Time acetaminophen (From NyQuil) Allergy Unknown Hives Verified 05/24/25 08:31 dextromethorphan (From Allergy Unknown Hives Verified 05/24/25 08:31 NyQuil) doxylamine (From NyQuil) Allergy Unknown Hives Verified 05/24/25 08:31 pseudoephedrine (From NyQuil) Allergy Unknown Hives Verified 05/24/25 08:31 lisinopril AdvReac Mild Cough Verified 05/24/25 08:32 Review of Systems Review of Systems: CONSTITUTIONAL: Denies malaise, chills, sweats, or fever. EYES: Denies redness, or discharge. ENT: Denies rhinorrhea, congestion, swollen lips, swollen tongue CARDIOVASCULAR: Denies chest pain, palpitations, or edema. RESPIRATORY: Denies cough or dyspnea. GASTROINTESTINAL: Denies abdominal pain, nausea, vomiting SKIN: Reports itchy rash on her face, arms, abdomen MUSCULOSKELETAL: Denies joint pain or myalgia. NEUROLOGIC: Denies headache. All systems reviewed & are unremarkable except as noted in HPI and below PMFSH Comments At time of signature, agree with nursing past medical, surgical, social and family history. There is no relevant family history pertinent to the presenting complaint Exam Narrative: GENERAL: Well-appearing, well-nourished, and in no acute distress. HEAD: Normocephalic, atraumatic. EYES: PERRLA, conjunctivae clear, and EOMI. ENT: Mucous membranes moist. Oropharynx without edema, erythema or lesions. NECK: Supple. No lymphadenopathy CHEST: Clear to auscultation. No respiratory distress. HEART: Regular rate and rhythm. SKIN: Warm, dry. Erythematous patches of raised skin scattered papules noted to bilateral cheeks, eyelids, arms and left abdomen NEURO: Alert and oriented x3. PSYCH: Normal mood and affect Course Course Emergency Course: Patient is aware of diagnosis, understands and agrees to treatment plan. Anticipatory guidance given. Patient agrees to follow-up as directed and is aware of reasons to seek care at the emergency department. Portions of this record may have been created with voice recognition software Level of Care: Express Care Visit Vital Signs Vital signs: Vital Signs Temperature 97.8 F 05/24/25 08:23 Pulse Rate 87 05/24/25 08:23 Respiratory Rate 16 05/24/25 08:23 Blood Pressure 148/84 H 05/24/25 08:23 Pulse Oximetry 98 05/24/25 08:23 Oxygen Delivery Room Air 05/24/25 08:23 Temperature 97.8 F 05/24/25 08:23 Pulse Rate 87 05/24/25 08:23 Respiratory Rate 16 05/24/25 08:23 Blood Pressure 148/84 H 05/24/25 08:23 Pulse Oximetry 98 05/24/25 08:23 Oxygen Delivery Room Air 05/24/25 08:23 Reviewed. MDM - Skin/Abscess/Foreign Bdy MDM Narrative Medical decision making narrative: Does not appear at this time to be erythema multiforme, bullous, SJS, TEN; no evidence at this time to suggest RMSF, endocarditis or Lyme disease; patient looks well, nontoxic and is tolerating oral intake; no neurologic signs or symptoms; no headache, photophobia or neck pain; afebrile; appropriate for initial outpatient treatment; discussed the importance of follow-up, patient agrees; question, viral exanthema, contact dermatitis, allergic dermatitis, eczema, urticaria. No soft palate or uvula edema, no tongue, lip edema or other mucosal involvement, no respiratory compromise, no stridor, no wheezing, no wheezing, no history of syncope, no hypotension, no nausea, vomiting, or diarrhea. Instructed patient to go to nearest ER immediately for any worsening symptoms including but not limited to: fever, spreading rash, pain, sore throat, headache, dizziness, chest pain, trouble breathing, or any symptoms concerning to the patient. Critical Care Time Critical Care Time Critical Care Time: No Discharge Plan Discharge Clinical Impression: Contact dermatitis Patient Disposition: Home Condition: Stable Instructions: Poison Lindsay (ED) Additional Instructions: Prevention is always better than treatment. Learn to identify poison lindsay, oak, and sumac and avoid it. Wear long sleeves, long pants, shoes, and socks. If you touched the plant, try to keep your hands away from your eyes, mouth, and face. Wash the skin thoroughly with soap and cool water as soon as possible. Scrub under the fingernails with a brush to prevent spreading of the resin to other parts of the body by touching or scratching. Remember to wash any clothing with soap and hot water as the resin can persist for many months and cause further dermatitis. You should NOT use antihistamine creams or lotions, anesthetic creams containing benzocaine, or antibiotic creams containing neomycin or bacitracin to the skin. These creams or ointments could make the rash worse. Antihistamines do not help to relieve itching caused by poison lindsay dermatitis. For some people, adding oatmeal to a bath, applying cool wet compresses, and applying calamine lotion may help to relieve itching. Once the blisters begin weeping fluid, astringents containing aluminum acetate (Burow's solution) and Domeboro may help to relieve the rash. IF symptoms get worse to follow up with your primary care provider or seek ER visit if you developing difficulty breathing, weakness, dizziness. Patient Language: Welsh Prescriptions: New prednisone 10 mg tablet 10 mg PO DAILY Qty: 42 0RF Rx Instructions: 6 tabs days 1-2, 5 tabs days 3-4, 4 tabs days 5-6, 3 tabs days 7-8, 2 tabs days 9-10, 1 tab days 11-12 No Action amlodipine 10 mg tablet liraglutide 0.6 mg/0.1 mL (18 mg/3 mL) pen injector SUBCUT metoprolol tartrate 25 mg tablet 25 mg PO BID pantoprazole 40 mg tablet,delayed release (DR/EC) 40 mg PO DAILY atorvastatin 40 mg tablet 40 mg PO DAILY aspirin [Baby Aspirin] 81 mg Tablet,Chewable 81 mg PO DAILY ezetimibe 10 mg tablet 10 mg PO DAILY metformin 500 mg tablet 500 mg PO BID albuterol sulfate 90 mcg/actuation HFA aerosol inhaler 2 inh inhalation QID PRN (Reason: shortness of breath or wheezing) Qty: 8.5 0RF Follow-up/Referrals: Shruthi,Nav Craft MD [Primary Care Provider] Time of Disposition: 08:36
--- OUTSIDE RECORDS SUMMARY | 2025-05-24 08:29 | XMS_ITS | Clinical Summary ---
Author Organization [facility] Medlert Address [address] [facility] [place] [address] Care Team Providers Care Point Of Sale Associate Name Role Phone Nav Hawkins MD Primary Care Provider [phone] Source Comments [facility] Affiliates and Associated Physician Practices is amultiple site organization consisting of ambulatory clinics and hospital sitesin [place], [place], [place] and [place]. This disclosure is being madepursuant to the Care Everywhere program and may not contain all information available regarding this patient. 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 Oxygen Saturation 96% 11/23/2024 3:02 PM CDT Inhaled Oxygen Concentration - - Weight 94.8 kg (209 lb) 11/23/2024 3:02 PM CDT Height 152.4 cm (5') 11/23/2024 3:02 PM CDT Body Mass Index 40.82 11/23/2024 3:02 PM CDT Plan of Treatment Upcoming Encounters Date Type Department Care Team (Late st Contact Info) Description 11/22/2025 10:00 AM CDT Office Visit [facility] - Cardiology [address] [facility] [address] [place] [id number] Darren Morris MD [address] [facility] [address] [place] [address] Health Maintenance Due Date Last Done Comments [...] of 3 - 19+ 3-dose series) 1992 SCREENING FOR DIABETES 10/27/2022 02/09/2018, 2017 PNEUMOCOCCAL VACCINE 50+ (1 of 1 - PCV) 2023 ZOSTER VACCINE (1 of 2) 2023 DEPRESSION SCREENING 07/27/2024 PAP SMEAR 01/14/2025 01/14/2022, 08/25/2017 COVID-19 VACCINE (1 - 2023- season) 2025 INFLUENZA VACCINE (#1) 2025 MAMMOGRAM 01/26/2026 01/27/2024, 07/0 09/2023, 01/24/2022, Additional history exists DTAP/TDAP/TD VACCINES (2 - [...] this topic Medical Devices Implanted Type Area Health Data Analyst Device Identifier Shelf Expiration Date Model / Serial / Lot Stent Cor 16mm 2.25mm 2.6-2.1fr Implanted:Qty: 1 on 02/09/2018 by Bienvenido Johnson MD at [facility] Left: Coronary [place] [employer] 09/10/2018 [id number] / / [id number] Description:1st daig Stent Cor 12mm 2.25mm 2.6-2.1fr Implanted:Qty: 1 on 02/09/2018 by Bienvenido Johnson MD at [facility] Left: Coronary [place] [employer] 06/29/2018 [id number] / / [id number] Description:OM Stent [employer] Monrail 2.50mm X 32mm Implanted:Qty: 1 on 02/09/2018 by Bienvenido Johnson MD at [facility] Right: Coronary [place] [employer] 12/02/2019 [id number] / / [id number] Description:RCA Procedures Procedure Name Priority Date/Time Associated Diagnosis Comments BASIC METABOLIC PANEL (CALCIUM TOTAL) Routine 02/09/2018 8:21 AM CDT CAD in [place] artery from Last 3 Months or Most Recently Relevant to Health Maintenance Results * (ABNORMAL) BASIC METABOLIC PANEL (CALCIUM TOTAL) (02/09/2018 8:21 AM CDT) BUN 14 7 - 26 mg/dL 02/09/2018 9:26 AM [facility] Creatinine 0.8 0.6 - 1.2 mg/dL 02/09/2018 9:26 AM [facility] Sodium 138 136 - 145 mmol/L 02/09/2018 9:26 AM [facility] Potassium 4.3 3.5 - 4.5 mmol/L 02/09/2018 9:26 AM [facility] Comment: Hemolysis detected in this specimen. Hemolysis is known to cause elevations in this analyte. Caution should be exercised in the interpretation of this result. Recommend repeat testing if clinically indicated. Chloride 104 98 - 107 mmol/L 02/09/2018 9:26 AM [facility] CO2 21(L) 22 - 29 mmol/L 02/09/2018 9:26 AM [facility] Glucose 90 70 - 115 mg/dL 02/09/2018 9:26 AM [facility] Calcium 9.2 8.4 - 10.2 mg/dL 02/09/2018 9:26 AM [facility] Anion Gap 17 8 - 18 02/09/2018 9:26 AM [facility] BUN/Creatinine Ratio 18 7 - 23 02/09/2018 9:26 AM [facility] Osmolality Calculated 286 270 - 300 mOsm/kg 02/09/2018 9:26 AM [facility] eGFR >60 >60 mL/min/1. 73 m2 02/09/2018 9:26 AM [facility] Blood BLOOD SPECIMEN / Unknown Venipuncture / Unknown 02/09/2018 8:21 AM CDT 02/09/2018 8:53 AM [facility] us Bienvenido Johnson MD LAB - CHEMISTRY ORDERABLES Final Result Performing Organization Address City/State/[facility] Co de Phone Number [facility] [address] [place] [address] from Last 3 Months or Most Recently Relevant to Health Maintenance Insurance [facility] Advance Directives * Full Code (Latest Code Status on File) Date Activated Date Inactivated Comments 02/09/2018 5:58 PM 02/10/2018 10:34 AM * Full Code Date Activated Date Inactivated Comments 02/09/2018 4:47 PM 02/09/2018 5:58 PM Care Teams Point Of Sale Associate Relationship Specialty Start Date End Date Nav Hawkins MD PCP - General 12/28/17
--- OUTSIDE RECORDS SUMMARY | 2025-05-24 08:29 | XMS_ITS | Encounter Summary ---
Author Organization [facility] Address [address] [place] [address] Phone Care Team Providers Care Riveter Helper Name Role Phone Nav Hawkins MD Primary Care Provider [phone] Phillip Sampson MD Unavailable Vivien Wilson MD Unavailable Shefali Rouse APRN, CNP Unavailable [phone] Lencho Vee MD Unavailable [phone] Reason for Visit * Reason Comments Medication Refill Encounter Details Date Type Department Care Team (Late st Contact Info) Description 10/02/2023 [facility]ill [facility] - Family Medicine [facility] [address]2 [place] [address] Nav Hawkins MD [address] [address] Medication Refill Social History Tobacco Use Types [...] Leni Childress RN - 10/03/2023 9:27 AM TELEGRAPH MESSENGER Medication failed the protocol, provider to review [...] Dept 04/16/23 Office Visit Nav Hawkins MD [facility] 10/14/22 Office Visit Nav Hawkins MD [facility] Showing recent visits within past 365 days and meeting all other requirements Future Appointments Date Type Provider Dept 10/23/23 Appointment Nav Hawkins MD [facility] Showing future appointments within next 90 days and meeting all other requirements GRAPH MESSENGER documented in this encounter Plan of Treatment Upcoming Encounters Date Type Department Care Team (Late st Contact Info) Description 07/03/2025 11:00 AM TELEGRAPH MESSENGER Office Visit [facility] - Pulmonology & Sleep Medicine - [place] [address] [place] [address] Phillip Sampson MD #2 [place] [address] 07/11/2025 8:15 AM TELEGRAPH MESSENGER Office Visit [facility] Endocrinology [facility] [address] [place] [address] Vivien Wilson MD [facility]2 [facility] [address] [place] [address] 11/06/2025 7:45 AM CDT Office Visit [facility] Family [facility] [address] [facility] [address] Nav Hawkins MD #2 [facility] [address] [place] [address] documented as of this encounter Visit Diagnoses Not on filedocumented in this encounter Additional Health Concerns Assessment Noted Time PHQ-9 Depression Total Score: 0 08/07/19 21 2:07 PM TELEGRAPH MESSENGER documented as of this encounter Care Teams Riveter Helper Relationship Specialty Start Date End Date Nav Hawkins MD #2 [facility] [address] [place] [address] PCP - General Family Medicine 09/18/16 Phillip Sampson MD #2 [place] [address] Consulting Physician Pulmonary Disease 10/17/21 Vivien Wilson MD #2 [facility] [address] [place] [address] Consulting Physician Endocrinology 02/17/22 Shefali Rouse APRN, ACETONE BUTTON PASTER #2 [facility] [address] [place] [address] Nurse Practitioner Advanced Practice Nurse 04/30/22 Lencho Vee MD #2 [place] [address] Consulting Physician Obstetrics & Gynecology 01/25/25 documented as of this encounter
--- OUTSIDE RECORDS SUMMARY | 2025-05-24 08:29 | XMS_ITS | Encounter Summary ---
Author Organization [facility] Address [address] [place] [address] Phone Care Team Providers Care Chiropractic Practice Manager Name Role Phone Nav Hawkins MD Primary Care Provider [phone] Phillip Sampson MD Unavailable Vivien Wilson MD Unavailable Shefali Rouse APRN, CNP Unavailable [phone] Lencho Vee MD Unavailable [phone] Reason for Visit * Reason Comments Medication Refill Encounter Details Date Type Department Care Team (Late st Contact Info) Description 10/17/2023 Refill [facility] - Family Medicine [facility] #2 [place] [address] Nav Hawkins MD #[address] [address] Medication Refill Social History Tobacco Use Types [...] PM CDT Medication(s) refilled and signed per [facility] Chronic Medication Refill Standing Order for Pediatricand [...] Dept 04/16/23 Office Visit Nav Hawkins MD [facility] Showing recent visits within past 365 days and meeting all other requirements Future Appointments Date Type Provider Dept 10/23/23 Appointment Nav Hawkins MD [facility] Showing future appointments within next 90 days and meeting all other requirements Passed - No active on record documented in this encounter Plan of Treatment Upcoming Encounters Date Type Department Care Team (Late st Contact Info) Description 07/03/2025 11:00 AM SONAR TECHNICIAN Office Visit [facility] - Pulmonology & Sleep Medicine - [place] #2 [place] [address] Phillip Sampson MD #2 [place] [address] 07/11/2025 8:15 AM SONAR TECHNICIAN Office Visit [facility] Endocrinology [facility] [address] [facility] [place] [address] Vivien Wilson MD #[address] [address] 11/06/2025 7:45 AM CDT Office Visit [facility] Family [facility] #2 [place] [address] Nav Hawkins MD #[address] [address] documented as of this encounter Visit Diagnoses Diagnosis Encounter for immunization Need for other specified prophylactic vaccination against single bacterial disease Chronic fatigue Other malaise and fatigue documented in this encounter Additional Health Concerns Assessment Noted Time PHQ-9 Depression Total Score: 0 08/07/19 21 2:07 PM SONAR TECHNICIAN documented as of this encounter Care Teams Chiropractic Practice Manager Relationship Specialty Start Date End Date Nav Hawkins MD #[address] [address] PCP - General Family Medicine 09/18/16 Phillip Sampson MD #2 [place] [address] Consulting Physician Pulmonary Disease 10/17/21 Vivien Wilson MD #[address] [address] Consulting Physician Endocrinology 02/17/22 Shefali Rouse APRN, BOAT OUTBOARD ENGINE MECHANIC #2 [facility] [address] [place] [address] Nurse Practitioner Advanced Practice Nurse 04/30/22 Lencho Vee MD #2 [place] [address] Consulting Physician Obstetrics & Gynecology 01/25/25 documented as of this encounter
--- OUTSIDE RECORDS SUMMARY | 2025-05-24 08:29 | XMS_ITS | Encounter Summary ---
Author Organization [facility] Address [address] [place] [address] Phone Care Team Providers Care Enterostomal Therapy Nurse Name Role Phone Nav Hawkins MD Primary Care Provider [phone] Phillip Sampson MD Unavailable Vivien Wilson MD Unavailable Shefali Rouse APRN, CNP Unavailable [phone] Lencho Vee MD Unavailable [phone] Reason for Visit * Reason Comments Medication Refill Encounter Details Date Type Department Care Team (Late st Contact Info) Description 06/22/2022 Refill [facility] - Endocrinology - [place] [address] [place] [address] Vivien Wilson MD #[address] [address] Medication Refill Social History Tobacco [...] Coronavirus/COVID-19? No / Unsure 06/03/2022 3:30 PM COMPLIANCE INTERN documented as of this encounter Miscellaneous Notes * Telephone Encounter - Itzel Alfaro RN - 06/23/2022 9:47 AM COMPLIANCE INTERN Requested Prescriptions Pending Prescriptions Disp Refills ??? atorvastatin (LIPITOR) 40 MG Tablet [Pharmacy Med Name: ATORVASTATIN 40 MG TABLET] 90 Tablet 1 Sig: TAKE 1 TABLET BY MOUTH EVERY DAY ??? Jardiance 25 MG Tablet [Pharmacy Med Name: JARDIANCE 25 MG TABLET] 30 Tablet 2 Sig: TAKE 1 TABLET BY MOUTH EVERY DAY Next appt: 09/18/2022 LIANCE INTERN documented in this encounter Plan of Treatment Upcoming Encounters Date Type Department Care Team (Late st Contact Info) Description 07/03/2025 11:00 AM COMPLIANCE INTERN Office Visit [facility] - Pulmonology & Sleep Medicine [facility] #2 [place] [address] Phillip Sampson MD #2 [place] [address] 07/11/2025 8:15 AM COMPLIANCE INTERN Office Visit [facility] Medical [facility] - Endocrinology - [place] #2 [place] [address] Vivien Wilson MD #2 [facility] [address] [place] [address] 11/06/2025 7:45 AM CDT Office Visit [facility] - [facility] [place] #2 [place] [address] Nav Hawkins MD #2 [facility] [address] [place] [address] documented as of this encounter Visit Diagnoses Not on filedocumented in this encounter Additional Health Concerns Assessment Noted Time PHQ-9 Depression Total Score: 0 08/07/19 21 2:07 PM COMPLIANCE INTERN documented as of this encounter Care Teams Enterostomal Therapy Nurse Relationship Specialty Start Date End Date Nav Hawkins MD #[address] [address] PCP - General Family Medicine 09/18/16 Phillip Sampson MD #2 [place] [address] Consulting Physician Pulmonary Disease 10/17/21 Vivien Wilson MD #[address] [address] Consulting Physician Endocrinology 02/17/22 Shefali Rouse APRN, LEAVE MANAGER #2 [facility] [address] [place] [address] Nurse Practitioner Advanced Practice Nurse 04/30/22 Lencho Vee MD #2 [place] [address] Consulting Physician Obstetrics & Gynecology 01/25/25 documented as of this encounter
--- OUTSIDE RECORDS SUMMARY | 2025-05-24 08:29 | XMS_ITS | Encounter Summary ---
Author Organization [facility] Address [address] [place] [address] Phone Care Team Providers Care Front Office Director Name Role Phone Nav Hawkins MD Primary Care Provider [phone] Phillip Sampson MD Unavailable Vivien Wilson MD Unavailable Shefali Rouse APRN, CNP Unavailable [phone] Lencho Vee MD Unavailable [phone] Reason for Visit * Reason Comments Medication Refill Encounter Details Date Type Department Care Team (Late st Contact Info) Description 01/06/2024 Refill [facility] - Endocrinology - [place] [address] [place] [address] Vivien Wilson MD #[address] [address] Medication Refill Social History Tobacco Use Types Packs/Day Years Used Date Smoking Tobacco: Former Cigarettes 0.5 25 0 04/20/1991 - 04/20/2016 Smokeless Tobacco: Never Alcohol Use Standard Drinks/Week Comments No 0 (1 standard drink = 0.6 oz pur e alcohol) [facility] Utilities Answer Date Recorded In the [...] How often do you attend chur or rastafari services? More than 4 times per year 10/22/2023 Do you belong to any clubs o r organizations such as tenriism groups, unions, fraternal or athletic groups, or [...] Total Score - Questions 1-9 0 09/24 [facility] of Occupat ional Health - Occupational Stress [...] place to sleep or slept in a correction (including now)? No 10/22/2023 Education Answer Date [...] st Contact Info) Description 07/03/2025 11:00 AM IN SCHOOL SUSPENSION AIDE Office Visit [facility] - Pulmonology & Sleep Medicine - [place] [address] [place] [place] [address] Phillip Sampson MD #2 [facility] [place] [address] 07/11/2025 8:15 AM IN SCHOOL SUSPENSION AIDE [facility] [place] #2 [place] [address] Vivien Wilson MD #[address] [place] [address] 11/06/2025 7:45 AM CDT Office Visit [facility] Family Medicine - [place] #2 [place] [address] Nav Hawkins MD #[address] [address] documented as of this encounter Visit Diagnoses Not on filedocumented in this encounter Additional Health Concerns Assessment Noted Time PHQ-9 Depression Total Score: 0 08/07/19 21 2:07 PM IN SCHOOL SUSPENSION AIDE documented as of this encounter Care Teams Front Office Director Relationship Specialty Start Date End Date Nav Hawkins MD #[address] [address] PCP - General Family Medicine 09/18/16 Phillip Sampson MD #2 [place] [address] Consulting Physician Pulmonary Disease 10/17/21 Vivien Wilson MD #[address] [address] Consulting Physician Endocrinology 02/17/22 Shefali Rouse APRN, CNP #[address] [address] Nurse Practitioner Advanced Practice Nurse 04/30/22 Lencho Vee MD #2 [place] [address] Consulting Physician Obstetrics & Gynecology 01/25/25 documented as of this encounter
--- OUTSIDE RECORDS SUMMARY | 2025-05-24 08:29 | XMS_ITS | Encounter Summary ---
Author Organization [facility] Address [address] [place] [address] Phone Care Team Providers Care Skoog Machine Operator Name Role Phone Nav Hawkins MD Primary Care Provider [phone] Phillip Sampson MD Unavailable Vivien Wilson MD Unavailable Shefali Rouse APRN, CNP Unavailable [phone] Lencho Vee MD Unavailable [phone] Reason for Visit * Reason Comments Medication Refill Encounter Details Date Type Department Care Team (Late st Contact Info) Description 10/20/2023 Refill [facility] Group - Endocrinology - [place] #[address] [place] [address] Vivien Wilson MD #[address] [address] Medication Refill Social History Tobacco Use Types Packs/Day Years Used Date Smoking Tobacco: Former Cigarettes 0.5 25 0 04/20/1991 - 04/20/2016 Smokeless Tobacco: Never Alcohol Use Standard Drinks/Week Comments No 0 (1 standard drink = 0.6 oz pur e alcohol) [facility] Utilities Answer Date Recorded In the past [...] How often do you attend chur or amish services? More than 4 times per year [...] Total Score - Questions 1-9 0 09/24 [facility] of Occupat ional Health - [...] place to sleep or slept in a group home (including now)? No 10/22/2023 Education Answer Date [...] Assessment Author 0 10/22/2023 9:10 AM CDT [facility], System Background * Q1: How often do you have a drink containing alcohol? Answer Date of Assessment Author Never 10/22/2023 9:10 AM CDT [facility], System Background * Q2: How many drinks containing alcohol do you have on a typical day when you are drinking? Answer Date of Assessment Author Patient does not drink 10/22/2023 9:10 AM CDT My chart, System Background * Q3: How often do you have six or more drinks on one occasion? Answer Date of Assessment Author Never 10/22/2023 9:10 AM CDT [employer] System Background documented as of this encounter Miscellaneous Notes * Telephone Encounter - Itzel Alfaro RN - 10/20/2023 10:08 AM CDT Medication(s) refilled and signed per [facility] [facility] Chronic Medication Refill Standing Order for Pediatric and Adult Patients. documented in this encounter Plan of Treatment Upcoming Encounters Date Type Department Care Team (Late st Contact Info) Description 07/03/2025 11:00 AM TOYS INSPECTOR Office Visit [facility] - Pulmonology & Sleep Medicine [facility] #2 [place] [address] Phillip Sampson MD #2 [place] [address] 07/11/2025 8:15 AM TOYS INSPECTOR Office Visit [facility] Medical [facility] - Endocrinology - [place] #2 [place] [address] Vivien Wilson MD #2 [facility] [address] [place] [address] 11/06/2025 7:45 AM CDT Office Visit [facility] Medical [facility] - Family Medicine - [place] #2 [place] [address] Nav Hawkins MD #2 [facility] [address] [place] [address] documented as of this encounter Visit Diagnoses Not on filedocumented in this encounter Additional Health Concerns Assessment Noted Time PHQ-9 Depression Total Score: 0 08/07/19 21 2:07 PM TOYS INSPECTOR documented as of this encounter Care Teams Skoog Machine Operator Relationship Specialty Start Date End Date Nav Hawkins MD #2 [facility] [address] [place] [address] PCP - General Family Medicine 09/18/16 Phillip Sampson MD #2 [place] [address] Consulting Physician Pulmonary Disease 10/17/21 Vivien Wilson MD #2 [facility] [address] [place] [address] Consulting Physician Endocrinology 02/17/22 Shefali Rouse APRN, SOLDERER PRODUCTION LINE #2 [facility] [address] [place] [address] Nurse Practitioner Advanced Practice Nurse 04/30/22 Lencho Vee MD #2 [place] [address] Consulting Physician Obstetrics & Gynecology 01/25/25 documented as of this encounter
--- OUTSIDE RECORDS SUMMARY | 2025-05-24 08:30 | XMS_ITS | Encounter Summary ---
Author Organization [facility] Address [address] [place] [address] Phone Care Team Providers Care Grounds Cleaner Name Role Phone Nav Hawkins MD Primary Care Provider [phone] Phillip Sampson MD Unavailable Vivien Wilson MD Unavailable Shefali Rouse APRN, CNP Unavailable [phone] Lencho Vee MD Unavailable [phone] Reason for Visit * Reason Comments Medication Refill Encounter Details Date Type Department Care Team (Late st Contact Info) Description 01/09/2022 Refill [facility] - Endocrinology - [place] [address] [place] [address] Vivien Wilson MD #[address] [address] Medication Refill Social History Tobacco [...] st Contact Info) Description 07/03/2025 11:00 AM CALENDAR CONTROL CLERK BLOOD BANK Office Visit [facility] - Pulmonology & Sleep Medicine [facility] #2 [place] [address] Phillip Sampson MD #2 [place] [address] 07/11/2025 8:15 AM CALENDAR CONTROL CLERK BLOOD BANK Office Visit [facility] - Endocrinology [facility] #2 [place] [address] Vivien Wilson MD #[address] [address] 11/06/2025 7:45 AM CDT Office Visit [facility] - Family [facility] #2 [place] [address] Nav Hawkins MD #[address] [address] documented as of this encounter Visit Diagnoses Not on filedocumented in this encounter Additional Health Concerns Infection Onset Date Last Indicated Resolved Time COVID - 19 05/14/2022 05/14/2022 05/24/2022 12:1 6 AM CDT Assessment Noted Time PHQ-9 Depression Total Score: 0 08/07/19 21 2:07 PM CALENDAR CONTROL CLERK BLOOD BANK documented as of this encounter Care Teams Grounds Cleaner Relationship Specialty Start Date End Date Nav Hawkins MD #[address] [address] PCP - General Family Medicine 09/18/16 Phillip Sampson MD #2 [place] [address] Consulting Physician Pulmonary Disease 10/17/21 Vivien Wilson MD #2 [facility] [address] [place] [address] Consulting Physician Endocrinology 02/17/22 Shefali Rouse APRN, DICTATING TRANSCRIBING MACHINE SERVICER #2 [facility] [address] [place] [address] Nurse Practitioner Advanced Practice Nurse 04/30/22 Lencho Vee MD #2 [place] [address] Consulting Physician Obstetrics & Gynecology 01/25/25 documented as of this encounter
--- OUTSIDE RECORDS SUMMARY | 2025-05-24 08:30 | XMS_ITS | Encounter Summary ---
Author Organization [facility] Address [facility] [place] [address] Care Team Providers Care Corn Sheller Name Role Phone Unavailable Primary Care Provider Unavailabl e Encounter Details Date Type Department Care Team (Late st Contact Info) Description 10/10/2017 Abstract [facility] [address] [place] [address] , Generic Conversion, Social History Tobacco Use Types Packs/Day Years Used Date Smoking Tobacco: Never Assessed Comments Unknown Sex and Gender Information Value Date Recorded Sex Assigned at Not on file Legal Sex Female 10:34 PM BLOWER OPERATOR Gender Identity Not on file Sexual Orientation Not on file documented as of this encounter Plan of Treatment Not on file documented as of this encounter Visit Diagnoses Not on filedocumented in this encounter
--- OUTSIDE RECORDS SUMMARY | 2025-05-24 08:30 | XMS_ITS | Encounter Summary ---
Author Organization [facility] Address [address] [place] [address] Phone Care Team Providers Care Advanced Analytics Associate Name Role Phone Nav Hawkins MD Primary Care Provider [phone] Phillip Sampson MD Unavailable Vivien Wilson MD Unavailable Shefali Rouse APRN, CNP Unavailable [phone] Lencho Vee MD Unavailable [phone] Reason for Visit * Reason Comments Medication Refill Encounter Details Date Type Department Care Team (Late st Contact Info) Description 12/28/2021 Refill [facility] - Endocrinology - [place] [address] [place] [address] Vivien Wilson MD #[address] [address] Medication Refill Social History Tobacco [...] st Contact Info) Description 07/03/2025 11:00 AM CERTIFICATION TECHNICIAN Office Visit [facility] - Pulmonology & Sleep Medicine [facility] #[address] [place] [address] Phillip Sampson MD #2 [place] [address] 07/11/2025 8:15 AM CERTIFICATION TECHNICIAN Office Visit [facility] Medical Group - Endocrinology [facility] #[address] [place] [address] Vivien Wilson MD #[address] [address] 11/06/2025 7:45 AM CDT Office Visit [facility] Medical [facility] - Family Medicine [facility] #2 [place] [address] Nav Hawkins MD #2 [facility] [address] [place] [address] documented as of this encounter Visit Diagnoses Not on filedocumented in this encounter Additional Health Concerns Infection Onset Date Last Indicated Resolved Time COVID - 19 05/14/2022 05/14/2022 05/24/2022 12:1 6 AM CDT Assessment Noted Time PHQ-9 Depression Total Score: 0 08/07/19 21 2:07 PM CERTIFICATION TECHNICIAN documented as of this encounter Care Teams Advanced Analytics Associate Relationship Specialty Start Date End Date Nav Hawkins MD #2 [facility] [address] [place] [address] PCP - General Family Medicine 09/18/16 Phillip Sampson MD #2 [place] [address] Consulting Physician Pulmonary Disease 10/17/21 Vivien Wilson MD #2 [facility] [address] [place] [address] Consulting Physician Endocrinology 02/17/22 Shefali Rouse APRN, LACTATION COORDINATOR #2 [facility] [address] [place] [address] Nurse Practitioner Advanced Practice Nurse 04/30/22 Lencho Vee MD #2 [place] [address] Consulting Physician Obstetrics & Gynecology 01/25/25 documented as of this encounter
--- OUTSIDE RECORDS SUMMARY | 2025-05-24 08:30 | XMS_ITS | Encounter Summary ---
Author Organization [facility] Address [address] [place] [address] Phone Care Team Providers Care Basket Weaver Name Role Phone Nav Hawkins MD Primary Care Provider [phone] Phillip Sampson MD Unavailable Vivien Wilson MD Unavailable Shefali Rouse APRN, CNP Unavailable [phone] Lencho Vee MD Unavailable [phone] Reason for Visit * Reason Comments Medication Refill Encounter Details Date Type Department Care Team (Late st Contact Info) Description 01/06/2024 Refill [facility] - Family Medicine [facility] #2 [place] [address] Nav Hawkins MD #[address] [address] Medication Refill Social History Tobacco Use Types Packs/Day Years Used Date Smoking Tobacco: Former Cigarettes 0.5 25 0 04/20/1991 - 04/20/2016 Smokeless Tobacco: Never Alcohol Use Standard Drinks/Week Comments No 0 (1 standard drink = 0.6 oz pur e alcohol) [facility] Utilities Answer Date Recorded In the [...] How often do you attend chur or caodaism services? More than 4 times per year 10/22/2023 Do you belong to any clubs o r organizations such as alevism groups, unions, fraternal or athletic groups, or [...] Total Score - Questions 1-9 0 09/24 [facility]ational [facility] Questionnaire [...] in a [facility] (including now)? No 10/22/2023 Education Answer Date [...] Dept 10/23/23 Office Visit Nav Hawkins MD [facility] 04/16/23 Office Visit Nav Hawkins MD [facility] Showing recent visits within past 365 days and meeting all other requirements Future Appointments No visits were found meeting these conditions. Showing future appointments within next 90 days and meeting all other requirements documented in this encounter Plan of Treatment Upcoming Encounters Date Type Department Care Team (Late st Contact Info) Description 07/03/2025 11:00 AM CAREER DEVELOPMENT COUNSELOR Office Visit [facility] - Pulmonology & Sleep Medicine - [place] [address] [place] [address] Phillip Sampson MD #2 [facility] [place] [address] 07/11/2025 8:15 AM CAREER DEVELOPMENT COUNSELOR Office Visit [facility] Medical [facility] - Endocrinology - [place] [address] [place] [address] Vivien Wilson MD #2 [facility] [address] [place] [address] 11/06/2025 7:45 AM CDT Office Visit [facility] Medical [facility] - Family Medicine - [place] #2 [place] [address] Nav Hawkins MD #2 [facility] [address] [place] [address] documented as of this encounter Visit Diagnoses Not on filedocumented in this encounter Additional Health Concerns Assessment Noted Time PHQ-9 Depression Total Score: 0 08/07/19 21 2:07 PM CAREER DEVELOPMENT COUNSELOR documented as of this encounter Care Teams Basket Weaver Relationship Specialty Start Date End Date Nav Hawkins MD #2 [facility] [address] [place] [address] PCP - General Family Medicine 09/18/16 Phillip Sampson MD #2 [place] [address] Consulting Physician Pulmonary Disease 10/17/21 Vivien Wilson MD #[address] [address] Consulting Physician Endocrinology 02/17/22 Shefali Rouse APRN, PIN DRAFTING MACHINE OPERATOR #[address] [address] Nurse Practitioner Advanced Practice Nurse 04/30/22 Lencho Vee MD #2 [place] [address] Consulting Physician Obstetrics & Gynecology 01/25/25 documented as of this encounter
--- OUTSIDE RECORDS SUMMARY | 2025-05-24 08:30 | XMS_ITS | Clinical Summary ---
Author Organization [facility] Address [address] [place] [address] Phone Care Team Providers Care Shark Biologist Name Role Phone Nav Hawkins MD Primary Care Provider Phillip Sampson MD Unavailable Vivien Wilson MD Unavailable Lencho Vee MD Unavailable [phone] Allergies Active Allergy Reactions Criticality Noted Date Comments Lisinopril Other (see Comments) 09/04/2017 cough Bocobcvyy-Vgfsvmxcpl-Sq-Apa p Hives,Shortness of Breath,Vomiting 07/12/2016 Medications aspirin 81 MG Chewable Tablet Take 1 Tab by mouth every morning. 12/29/19 18 Active ezetimibe (ZETIA) 10 MG Tablet Take [...] nightly. Active CRANBERRY PO Take by mouth. Active Benzonatate 200 MG Capsule 07/29/19 23 Active pantoprazole (PROTONIX) 40 MG Tablet Delayed ResponseIndica tions:Encounte r for immunization,C hronic fatigue TAKE 1 TABLET BY MOUTH EVERY DAY 30 Tablet 3 10/18/19 24 Active atorvastatin (LIPITOR) 40 MG Tablet TAKE 1 TABLET BY MOUTH EVERY DAY 90 Tablet 1 01/07/20 24 Active amLODIPine (NORVASC) 5 MG Tablet Take 1 Tablet by mouth every morning. 90 Tablet 3 11/04/19 25 Active mometasone (ELOCON) 0.1 % Solution APPLY DAILY TO HANDS 60 mL 12/21/19 25 Active Insulin Pen Needle 32G X 4 MM Misc 1 time a day 100 Each 3 01/07/20 25 Active amLODIPine (NORVASC) 10 MG Tablet 02/18/20 25 Active methylPREDNISo lone (MEDROL DOSPACK) 4 MG Tablet Therapy Pack See product package insert for dosing schedule 21 Tablet 04/14/20 25 Active traMADol (ULTRAM) 50 MG TabletIndicati ons:Osteoarthr itis of left knee Take 1-2 Tablets by mouth every 6 hours as needed for Mild or more severe pain. 20 Tablet 04/14/20 25 Active Rybelsus 3 MG Tablet TAKE 1 TABLET BY MOUTH EVERY DAY 30 Tablet 05/22/20 25 Active metFORMIN (GLUCOPHAGE) 500 MG Tablet TAKE 1 TABLET BY MOUTH TWICE A DAY WITH MEALS 180 Tablet 1 10/20/19 24 025 Discontinued(Er ror) amoxicillin-cl avulanate (AUGMENTIN) 875-125 MG Tablet take 1 tablet by mouth every 12 hours for 10 days 02/02/20 25 025 Discontinued(Er ror) fluticasone (FLONASE) 50 MCG/ACT SuspensionIndi cations:Nasal Congestion 1 Fabens by Nasal route daily for 90 days. 1 sprays each nostril daily for nasal congestion and allergies. Indications: Stuffy Nose 9.9 mL 3 02/23/20 25 025 semaglutide (Rybelsus) 3 MG Tablet Take 1 Tablet by mouth daily. 30 Tablet 04/12/20 25 025 Discontinued Active Problems Problem Noted Date Diagnosed Date Diabetes mellitus 03/10/2023 Nodule of lower lobe of left lung 08/09/2020 Acute recurrent pancreatitis 04/19/2020 Leukocytosis 04/19/2020 Hyponatremia 04/19/2020 Hypochloremia 04/19/2020 GERD (gastroesophageal reflux disease) 0 Hypertriglyceridemia 12/12/2019 FAYE (obstructive sleep apnea) 02/15/2019 Non morbid obesity 02/15/2019 Gastroenteritis 08/20/2018 Hyperglycemia 04/15/2018 Coronary artery disease invo lving hoopa heart without angina pectoris 01/07/2018 Pure hypercholesterolemia [...] of 40.0 to 44.9 in adult 12/12/2019 4 High blood pressure 01/07/2018 05/23/20 24 Encounters Date Type Department Care Team Description 05/24/2025 Nurse Triage [facility] [address] [place] [phone] Nav Hawkins MD Poison [place]/Poison [place]/Poison [place] Exposure 05/22/2025 Refill [facility] Endocrinology [facility] [address] [place] [address] Vivien Wilson MD Medication Refill 05/05/2025 8:45 AM CDT Office Visit [facility] Family Medicine [facility] [address] [place] [address] Nav Hawkins MD Type 2 diabetes mellitus with other specified complication, without long-term current use of insulin (Primary Dx); Primary hypertension; FAYE on CPAP; Coronary artery disease involving hoopa heart without angina pectoris, unspecified vessel or lesion type; Pure hypercholesterolemia Discharge Disposition: Discharged to home or Selfcare 05/05/2025 Telephone [facility] [address] [place] [phone] Nav Hawkins MD Advice Only 05/03/2025 Travel 04/28/2025 Results Follow-Up [facility] Endocrinology - [place] [address] [place] [address] Vivien Wilson MD LIPASE 04/27/2025 2:20 PM CDT Lab [facility] [address] [facility] [address] [place] [address] [facility] Diabetes type 2, no ocular involvement; Coronary artery disease involving hoopa heart without angina pectoris, unspecified vessel or lesion type; Pure hypercholesterolemia; Abdominal pain, unspecified abdominal location Discharge Disposition: Discharged to home or Selfcare 04/27/2025 Travel 04/14/2025 10:43 PM CDT - 04/15/2025 12:16 AM CDT Emergency [facility] Emergency [address] [place] [address] Noble Garzon MD Osteoarthritis of left knee Discharge Disposition: Discharged to home or Selfcare 04/14/2025 Travel 04/12/2025 Telephone [facility] - [place] [address] [place] [address] Vivien Wilson MD Prior Authorization 04/11/2025 8:15 AM CDT Procedure Visit [facility] - [place] [address] [place] [address] Type 2 diabetes mellitus with other specified complication, without long-term current use of insulin (Primary Dx) Discharge Disposition: Discharged to home or Selfcare 04/11/2025 8:00 AM CDT Office Visit [facility] [address] [place] [address] Vivien Wilson MD Type 2 diabetes mellitus with other specified complication, without long-term current use of insulin (Primary Dx); Class 2 severe obesity due to excess calories with serious comorbidity and body mass index (BMI) of 39.0 to 39.9 in adult (HCC); New medication added Discharge Disposition: Discharged to home or Selfcare 04/11/2025 Travel 02/28/2025 Results Follow-Up [facility] Medical [facility] - Obstetrics & Gynecology [facility] [address] [place] [address] Lencho Vee MD PATHOLOGY CYTOLOGY HYDRAULIC HAMMER OPERATOR, HUMAN PAPILLOMA VIRUS (HPV) 02/22/2025 11:00 AM CDT Office Visit [facility] Medical [facility] - Family Medicine [facility] [address] [place] [address] Oehl, Swetha N, FURNACE REPAIR MECHANIC, MARKETING WRITER Sensation of fullness in right ear (Primary Dx); Environmental and seasonal allergies; Constipation, unspecified constipation type; Type 2 diabetes mellitus with other specified complication, without long-term current use of insulin Discharge Disposition: Discharged to home or Selfcare 02/22/2025 Travel from Last 3 Months Immunizations Immunization Administration Dates Next Due TDAP Vaccine 10/11/2019 Family History Medical History Relation Name Comments Cancer Father Clyde Skin cancer Diabetes Father Clyde Heart Attack Father Clyde Also has Diabet es, Gall bladder removed, stents Heart Disease Father Clyde 2 stints Hypertension Father Clyde Neuropathy Father Clyde Heart Attack Maternal Aunt 1 Kierra Also had katty coidosis Heart Disease Maternal Aunt 1 Kierra Quad bypass Heart Attack Maternal Aunt 2 Kierra Also had katty coidosis Diabetes Maternal Grandfather Lance Heart Attack Maternal Grandfather Lance Also oneil d Diabetes Heart Disease Maternal Grandfather Lance Five b ypass took whole bottom half of heart Breast Cancer Maternal Grandmother Monica Cancer Maternal Grandmother Monica Lung an d uterine Congestive Heart Failure Maternal Grandmother Monica Diabetes Maternal Grandmother Monica Heart Attack Maternal Grandmother Monica Left mary ng cancer, Gall bladder removed, endometrial cancer, Kidney removal, Heart Disease Maternal Grandmother Monica Triple bypass Heart Surgery Maternal Grandmother Monica Hepatitis Maternal Grandmother Monica Carrier Heart Attack Maternal Uncle 1 Lance Also had or leandro peel Heart Disease Maternal Uncle 1 Lance Quad bypas s Heart Attack Maternal Uncle 2 Lance Also had or leandro peel Cancer Mother Asya Uterine cancer () Colon Polyps Mother Asya Non cancerous Endometriosis Mother Asya Heart Attack Mother Asya Also had Polio, endometrial cancer Heart Disease Mother Asya Triple bypass Heart Surgery Mother Asya High Cholesterol Mother Asya Hypertension Mother Asya Uterine Cancer Mother Asya Full hysterec janette Heart Attack Paternal Grandfather Omega Also oneil d Prostate cancer Diabetes Paternal Grandmother Ebony Everett Diabete s, dementia, Relation Name Status Comments Father Clyde Alive Maternal Aunt 1 Kierra Alive Maternal Aunt 2 Kierra Alive Maternal Grandfather Lance Alive Maternal Grandmother Monica Maternal Uncle 1 Lance Alive Maternal Uncle 2 Lance Alive Mother Asya Alive Paternal Grandfather Omega Alive Paternal Grandmother Ebony Everett Alive Social History Tobacco Use Types Packs/Day Years Used Date Smoking Tobacco: Former Cigarettes 0.5 25 0 04/20/1991 - 04/20/2016 Smokeless Tobacco: Never Tobacco Cessation:Counseling Given: No Alcohol Use Standard Drinks/Week Comments No 0 (1 standard drink = 0.6 oz pur e alcohol) [facility] Utilities Answer Date Recorded In the [...] often do you attend chur ch or anabaptist services? More than 4 times per year 11/03/2024 Do you belong to any clubs o r organizations such as uatsdin groups, unions, fraternal or athletic groups, or [...] Total Score - Questions 1-9 0 03/28 [facility] - Occupational Stress Questionnaire Answer Date [...] in a correction (including now)? No 10/22/2023 Housing Stability Vital Sign Answer Geraldo e Recorded In the last 12 months, was t here a time when you were not able to pay the mortgage or rent on time? No 11/03/2024 In the past 12 months, how m any times have you moved where you were living? 0 11/03/2024 At any time in the past 12 m [facility], were you homeless or living in a correction (including now)? No 11/03/2024 Education Answer Date Recorded What is the highest level of school you have completed or the highest degree you have received? Bachelor's degree (e.g., BA, AB, BS) 04/24/2020 Sexually Active Control Partners Comments Yes Male Condom Male Comments No Sex and Gender Information Value Date Recorded Sex Assigned at Female 03/10/2023 8:42 AM CDT Legal Sex Female 10:52 PM CDT Gender Identity Female 03/10/2023 8:42 AM CDT Sexual Orientation Straight 11/14/2024 1: 15 PM CDT Last Filed Vital Signs Vital Sign Reading Time Taken Comments Blood Pressure 128/74 05/05/2025 8:40 AM CDT Pulse 71 05/05/2025 8:40 AM CDT Temperature 36.1 C (96.9 F) 05/05/2025 8:40 AM CDT Respiratory Rate 18 05/05/2025 8:40 AM CDT Oxygen Saturation 97% 05/05/2025 8:40 AM CDT Inhaled Oxygen Concentration - - Weight 93.5 kg (206 lb 3.2 oz) 05/05/2025 8:40 A M CDT Height 152.4 cm (5') 05/05/2025 8:40 AM CDT Body Mass Index 40.27 05/05/2025 8:40 AM CDT Plan of Treatment Upcoming Encounters Date Type Department Care Team (Late st Contact Info) Description 07/03/2025 11:00 AM SUPPLY ASSISTANT Office Visit [facility] - Pulmonology & Sleep Medicine [facility] [address] [place] [phone] Phillip Sampson MD [address] [place] [address] 07/11/2025 8:15 AM SUPPLY ASSISTANT Office Visit [facility] - Endocrinology [facility] [address] [place] [phone] Vivien Wilson MD [address] [address] 11/06/2025 7:45 AM CDT Office Visit [facility] - Family Medicine - [place] [address] [place] [address] Nav Hawkins MD [address] [address] Health Maintenance Due Date Last Done Comments Hepatitis C Virus (HCV) Screening 1973 Hepatitis B Immunization (1 of 3 - 19+ 3-dose series) 1992 Pneumococcal Immunization (50+ years) (1 of 2 - PCV) 1992 Cologuard 2018 Immunochemical Fecal Occult Blood 2018 Respiratory Syncytial Virus (RSV) Immunization (Adult) (1 - Risk 50-74 years 1-dose series) 2023 Zoster Immunization (1 of 2) 2023 SARS-COV-2 Immunization ( - season) 2025 Diabetes: Hemoglobin A1c 10/09/2025 025, 01/06/2025, 06/15/2024, Additional history exists Mammogram 12/13/2025 12/13/2024, 01/27/2024, 01/24/2022, Additional history exists Influenza Immunization (#1) 2026 Postponed from 03/27/2025 (Patient Temporarily Declines) Diabetes: Eye Exam 04/11/2026 04/11/2025, 03/14/2024 Diabetes: Foot Exam 04/11/2026 04/11/2025, 03/14/2024, 03/10/2023 Diabetes: Nephropathy Screening 04/27/2026 04/27/2025, 04/27/2025, 10/14/2024, Additional history exists Pap Smear 02/01/2028 01/31/2025, 01/14/2022, 08/25/2017 Td Immunization Every 10 Years (Adults With 1 Tdap) 10/10/2029 10/11/2019 Cervical Cancer Screening (CCS) 01/31/2030 HPV/Cotest 01/31/2030 01/31/2025, 08/25/2017 Colonoscopy 07/23/2030 07/23/2020 Colorectal Cancer Screening 07/23/2030 Discussion re Starting/Frequency of Mammograms Discontinued 12/13/2024, [...] Procedure Name Priority Date/Time Associated Diagnosis Comments LIPASE Routine 04/27/2025 2:10 PM CDT Abdominal pain, unspecified abdominal location UR MICROALBUMIN/CREATIN INE RATIO RANDOM Routine 04/27/2025 2:10 PM CDT Diabetes type 2, no ocular involvement Coronary artery disease involving hoopa heart without angina pectoris, unspecified vessel or lesion type Pure hypercholesterolemia LIPID PANEL Routine 04/27/2025 2:10 PM CDT Diabetes type 2, no ocular involvement Coronary artery disease involving hoopa heart without angina pectoris, unspecified vessel or lesion type Pure hypercholesterolemia CMP (COMPREHENSIVE METABOLIC PANEL) Routine 04/27/2025 2:10 PM CDT Diabetes type 2, no ocular involvement Coronary artery disease involving hoopa heart without angina pectoris, unspecified vessel or lesion type Pure hypercholesterolemia XR KNEE 3 VIEWS LEFT STAT 04/14/2025 11:07 PM CDT DIABETIC BILATERAL RETINAL IMAGING WITH COMPUTERIZED INTERPRETATION Routine 04/11/2025 8:31 AM CDT Type 2 diabetes mellitus with other specified complication, without long-term current use of insulin POCT GLYCOSYLATED HEMOGLOBIN Routine 04/11/2025 8:07 AM CDT Type 2 diabetes mellitus with other specified complication, without long-term current use of insulin HUMAN PAPILLOMA VIRUS (HPV) Routine 01/31/2025 3:05 PM CDT Encounter for well woman exam with routine gynecological exam PATHOLOGY CYTOLOGY HYDRAULIC HAMMER OPERATOR Routine 01/31/2025 3:05 PM CDT Encounter for well woman exam with routine gynecological exam SISSY SCREENING BILATERAL DIGITAL W CAD W SADE Routine 12/13/2024 8:31 AM CDT Visit for screening mammogram from Last 3 Months or Most Recently Relevant to Health Maintenance Results * UR MICROALBUMIN/CREATININE RATIO RANDOM (04/27/2025 2:10 PM CDT) Pathologist Carlos RAN UR MICROALBUMIN 2.01 mg/dL 04/27/2025 4:12 PM CDT [facility] Comment:No reference range h as been established. Consider Clinical Correlation. CREATININE URINE 313.9 mg/dL 04/27/20 4:12 PM CDT [facility] Comment:No reference range h as been established. Consider Clinical Correlation. ALB/CREAT RATIO 6 0 - 30 mg/g CRE 04/27/2025 4:12 PM CDT [facility] Urine Non-Phlebotomy Collection / Unknown 04/27/2025 2:10 PM CDT 04/27/2025 2:10 PM CDT Nav Hawkins MD URINE ORDERABLES Final Result [facility] [address] [place] [address] * (ABNORMAL) LIPID PANEL (04/27/2025 2:10 PM CDT) CHOLESTEROL 183 <200 mg/dL 04/27/2025 4:33 PM CDT [facility] TRIGLYCERIDES 205(H) <150 mg/dL 04/27/2025 4:33 PM CDT [facility] HDL CHOLESTEROL 54 >40 mg/dL 5 4:33 PM CDT [facility] LDL 88 <130 mg/dL 04/27/2025 4:33 PM CDT [facility] VLDL 41 10 - 50 mg/dL 04/27/2025 4:33 PM CDT [facility] CHOL/HDL RATIO 3.4 0.0 - 4.4 04/27/2025 4:33 PM CDT [facility] NON-HDL CHOLESTEROL 129 <130 mg/dL 04/27/2025 4:33 PM CDT [facility] IS THE PATIENT REQUIRED TO BE FASTING? No 04/27/2025 4:33 PM CDT [facility] Blood Venipuncture / Unknown 04/27/2025 2:10 PM CDT 04/27/2025 2:10 PM CDT us Nav Hawkins MD CHEMISTRY ORDERABLES Final Re sult Performing Organization Address City/[facility]/ZIP Co de Phone Number [facility] [address] [place] [address] * LIPASE (04/27/2025 2:10 PM CDT) LIPASE 31 8 - 78 U/L 04/27/2025 4:33 PM CDT [facility] Blood Venipuncture / Unknown 04/27/2025 2:10 PM CDT 04/27/2025 2:10 PM CDT us Vivien Wilson MD CHEMISTRY ORDERABLES Final Resul t [facility] [address] [place] [address] * (ABNORMAL) CMP (COMPREHENSIVE METABOLIC PANEL) (04/27/2025 2:10 PM CDT) SODIUM 142 136 - 145 mmol/L 04/27/2025 4:33 PM CDT [facility] POTASSIUM 4.0 3.5 - 5.1 mmol/L 04/27/2025 4:33 PM CDT [facility] CHLORIDE 105 98 - 107 mmol/L 04/27/2025 4:33 PM CDT [facility] CO2, VENOUS 25 22 - 30 mmol/L 04/27/2025 4:33 PM CDT [facility] ANION GAP 16.0 <18.0 mmol/L 04/27/2025 4:33 PM CDT [facility] GLUCOSE 113(H) 70 - 99 mg/dL 04/27/2025 4:33 PM CDT [facility] BUN 10 10 - 20 mg/dL 04/27/2025 4:33 PM CDT [facility] CREATININE, BLOOD 0.87 0.60 - 1.00 mg/dL 04/27/2025 4:33 PM CDT [facility] BUN/CREATININE RATIO 11(L) 12 - 20 ratio 04/27/2025 4:33 PM CDT [facility] TOTAL PROTEIN 7.1 6.0 - 8.0 g/dL 04/27/2025 4:33 PM CDT [facility] ALBUMIN 4.0 3.5 - 5.0 g/dL 04/27/2025 4:33 PM CDT [facility] A/G RATIO 1.3 1.0 - 2.2 04/27/2025 4:33 PM CDT [facility] CALCIUM 9.1 8.7 - 10.5 mg/dL 04/27/2025 4:33 PM CDT [facility] T BILI 0.7 0.2 - 1.2 mg/dL 04/27/2025 4:33 PM CDT [facility] SGOT (AST) 16 <43 U/L 04/27/2025 4:33 PM CDT [facility] SGPT (ALT) 15 <56 U/L 04/27/2025 4:33 PM CDT [facility] ALKALINE PHOSPHATASE 90 40 - 150 U/L 04/27/2025 4:33 PM CDT [facility] IS THE PATIENT REQUIRED TO BE FASTING? No 04/27/2025 4:33 PM CDT [facility] GFR, ESTIMATED >60 >=60 04/27/2025 4:33 PM CDT [facility] Comment: Creatinine Clearance is the preferred criteria for selecting drug dose adjustments in renally impaired patients. The GFR is provided as additional pertinent clinical information. GFR is reported in mL/min/1.73 sq m. Calculation based on the 2020 Chronic Kidney Disease Epidemiology Collaboration (CKD-EPI) equation refit without adjustment for race. GFR, EST. >60 >=60 025 4:33 PM CDT [facility] Comment: Creatinine Clearance is the preferred criteria for selecting drug dose adjustments in renally impaired patients. The GFR is provided as additional pertinent clinical information. GFR is reported in mL/min/1.73 sq m. Calculation based on the 2009 Chronic Kidney Disease Epidemiology Collaboration (CKD-EPI). GFR, EST. NONAFRICAN >60 >=60 04/27/2025 4:33 PM CDT [facility] Comment: Creatinine Clearance is the preferred criteria for selecting drug dose adjustments in renally impaired patients. The GFR is provided as additional pertinent clinical information. GFR is reported in mL/min/1.73 sq m. Calculation based on the 2009 Chronic Kidney Disease Epidemiology Collaboration (CKD-EPI). Blood Venipuncture / Unknown 04/27/2025 2:10 PM CDT 04/27/2025 2:10 PM CDT us Nav Hawkins MD CHEMISTRY ORDERABLES Final Re sult [facility] [address] [place] [address] * XR KNEE 3 VIEWS LEFT (04/14/2025 11:07 PM CDT) Anatomical Region Laterality Modality LOWER EXTREMITY, knee Left Digital Ra diography 04/14/2025 11:0 7 PM CDT Impressions 04/15/2025 6:09 AM CDT IMPRESSION: No acute abnormality seen. Narrative 04/15/2025 6:09 AM CDT XR KNEE 3 VIEWS LEFT : 04/14/2025 11:07 PM HISTORY: Pain. ADDITIONAL TECHNOLOGIST HISTORY: pain w/o injury. c/o left knee pain that radiates up to thigh x 2 weeks. Progressivly worsening. No prior fx or surgery COMPARISON: None. FINDINGS: There is no evidence of acute fracture, subluxation, or radiopaque foreign body.. Mild 3 compartment degeneration. Procedure Note Mata Romano MD - 04/15/2025 XR KNEE 3 VIEWS LEFT : 04/14/2025 11:07 PM HISTORY: Pain. ADDITIONAL TECHNOLOGIST HISTORY: pain w/o injury. c/o left knee pain thatradiates up to thigh x 2 weeks. Progressivly worsening. No prior fx orsurgery COMPARISON: None. FINDINGS: There is no evidence of acute fracture, subluxation, or radiopaque foreignbody.. Mild 3 compartment degeneration. IMPRESSION: No acute abnormality seen. Noble Garzon MD IMG DIAGNOSTIC ORDERABLES Final Result * DIABETIC BILATERAL RETINAL IMAGING WITH COMPUTERIZED INTERPRETATION (04/11/2025 8:31 AM CDT) DIABETIC BILATERAL DIGITAL RETINAL IMAGING No Diabetic Retinopathy Detected: ETDRS level 20 or lower and no Diabetic Macular Edema [facility]ST[facility] Comment: Next Steps: Retest in 12 months IDx Submission ID: [id number] Results were produced by a system that provides an artificial intelligence (AI) interpretation A positive result indicates a high risk of diabetic retinopathy with a severity of ETDRS level 35 or higher and/or macular edema. IDx-DR diabetic retinopathy exam does not replace a comprehensive eye exam. Other 04/11/2025 8:31 AM CDT Vivien Wilson MD OUTPT PROCEDURE ORDERABLES Final Result EXTERNAL EKG DIGITAL DIAGNOSTICS * POCT GLYCOSYLATED HEMOGLOBIN (04/11/2025 8:07 AM CDT) HGB-A1C 5.8 4 - 6 % Blood 04/11/2025 8:07 AM CDT Vivien Wilson MD POINT OF CARE TESTING (MANUAL) F inal Result * PATHOLOGY CYTOLOGY HYDRAULIC HAMMER OPERATOR (01/31/2025 3:05 PM CDT) SPECIMEN ADEQUACY Satisfactory for evaluation. Endocervical/transf ormation zone component is absent. 02/27/2025 7:49 AM CDT [facility] DESCRIPTIVE DIAGNOSIS NEGATIVE FOR INTRAEPITHELIAL LESIONS OR MALIGNANCY. 02/27/2025 7:49 AM CDT [facility] at 0749 CDT Automated Examination Analysis of this sample has been assisted by an automated imaging and review system ([employer], [employer], [place], [place]). This case is further evaluated and finalized by a extension work instructor and/or pathologist. 02/27/2025 7:49 AM CDT [facility] Disclaimer The PAP smear is a screening [...] or older than 65 unless clinically indicated. 02/27/2025 7:49 AM CDT [facility] Case Report Gynecologic Cytology Report Case: [id number] Authorizing Provider: Lencho Vee MD Collected: 01/31/2025 03:05 PM Ordering Location: [facility] - Received: 01/31/2025 03:05 PM Obstetrics & Gynecology [facility] First Screen: Jhonny Hilton Specimen: TP Screen, Cervix/Endocervix 02/27/2025 7:49 AM CDT [facility] Other CERVIX UTERI STRUCTURE / Unknown Non-Phlebotomy Collection / Unknown 01/31/2025 3:05 PM CDT 01/31/2025 3:05 PM CDT us Lencho Vee MD PATHOLOGY/CYTOLOGY ORDERABLES Final Result [facility] [address] [place] [address], [place] * HUMAN PAPILLOMA VIRUS (HPV) (01/31/2025 3:05 PM CDT) HPV TYPE 16 NEGATIVE NEGATIVE 02/01/2025 11:19 AM CDT [facility] Comment: A negative high-risk HPV result does [...] 18 NEGATIVE NEGATIVE 02/01/2025 11:19 AM CDT [facility] Comment: A negative high-risk HPV result does [...] PCR NEGATIVE NEGATIVE 02/01/2025 11:19 AM CDT [facility] Comment: The following Other High Risk types [...] OR DIAGNOSTIC SCREENING 02/01/2025 11:19 AM CDT [facility] Other Non-Phlebotomy Collection / Unknown 01/31/2025 3:05 PM CDT 01/31/2025 3:05 PM CDT Narrative [facility] - 02/01/2025 11:19 AM CDT This test was performed using [employer] 5800 Real Time PCR. us Lencho Vee MD LAB SEND OUTS Final Result [facility] [address] [place] [address], [facility] #1 [place] [address] * [facility] SCREENING BILATERAL DIGITAL W CAD W SADE (12/13/2024 8:31 AM CDT) Anatomical Region Laterality Modality breast Bilateral Mammography 12/13/2024 8:03 AM CDT Narrative 12/14/2024 1:23 PM CDT - [facility] SCREENING BILATERAL DIGITAL W CAD W SADE [...] to exams dated: 01/27/2024, 01/24/2022, and 02/09/2019 [facility]. BREAST TISSUE:There are scattered areas of fibroglandular [...] next screening exam. Electronically signed by: Germain estrada/jeremy:12/14/2024 13:06:11 Sole Leveling Machine Operator(s): RT Caitlin(R)(M), [facility] letter sent: Normal Exam Reading location: [place] [...] to exams dated: 01/27/2024, 01/24/2022, and 02/09/2019 [facility]. BREAST TISSUE:There are scattered areas of fibroglandular [...] next screening exam. Electronically signed by: Germain estrada/jeremy:12/14/2024 13:06:11 Sole Leveling Machine Operator(s): RT Caitlin(R)(M), [facility] letter sent: Normal Exam Reading location: [place] Mammogram BI-RADS: Category 1: Negative Nav Hawkins MD IMG MAMMO ORDERABLES Final Re sult from Last 3 Months or Most Recently Relevant to Health Maintenance Insurance [place]ICA[place] Advance Directives * Full Code (Latest Code [...] measures to stabilize the patient. Care Teams Shark Biologist Relationship Specialty Start Date End Date Nav Hawkins MD #2 [facility] [address] [place] [address] PCP - General Family Medicine 09/18/16 Phillip Sampson MD #2 [place] [address] Consulting Physician Pulmonary Disease 10/17/21 Vivien Wilson MD #2 [facility] [address] [place] [address] Consulting Physician Endocrinology 02/17/22 Lencho Vee MD #2 [place] [address] Consulting Physician Obstetrics & Gynecology 01/25/25
--- OUTSIDE RECORDS SUMMARY | 2025-05-24 08:30 | XMS_ITS | Clinical Summary ---
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
--- OUTSIDE RECORDS SUMMARY | 2025-05-24 08:30 | XMS_ITS | Encounter Summary ---
Author Organization [facility] Address [address] [place] [address] Phone Care Team Providers Care Api Architect Name Role Phone Nav Hawkins MD Primary Care Provider [phone] Phillip Sampson MD Unavailable Vivien Wilson MD Unavailable Shefali Rouse APRN, CNP Unavailable [phone] Lencho Vee MD Unavailable [phone] Reason for Visit * Reason Comments Medication Refill Encounter Details Date Type Department Care Team (Late st Contact Info) Description 12/24/2022 Refill [facility] - Endocrinology - [place] #[address] [place] [address] Vivien Wilson MD #[address] [address] Medication Refill Social History Tobacco [...] st Contact Info) Description 07/03/2025 11:00 AM FURNITURE LUMBER PRODUCTION WORKER Office Visit [facility] - Pulmonology & Sleep Medicine [facility] #2 [place] [address] Phillip Sampson MD #2 [place] [address] 07/11/2025 8:15 AM FURNITURE LUMBER PRODUCTION WORKER Office Visit [facility] - Endocrinology [facility] #2 [place] [address] Vivien Wilson MD #[address] [address] 11/06/2025 7:45 AM CDT Office Visit [facility] [place] #2 [place] [address] Nav Hawkins MD #[address] [facility] [address] [place] [address] documented as of this encounter Visit Diagnoses Not on filedocumented in this encounter Additional Health Concerns Assessment Noted Time PHQ-9 Depression Total Score: 0 08/07/19 21 2:07 PM FURNITURE LUMBER PRODUCTION WORKER documented as of this encounter Care Teams Api Architect Relationship Specialty Start Date End Date Nav Hawkins MD #[address] [address] PCP - General Family Medicine 09/18/16 Phillip Sampson MD #2 [place] [address] Consulting Physician Pulmonary Disease 10/17/21 Vivien Wilson MD #[address] [facility] [address] [place] [address] Consulting Physician Endocrinology 02/17/22 Shefali Rouse APRN, CASE SEALER #[address] [facility] [address] [place] [address] Nurse Practitioner Advanced Practice Nurse 04/30/22 Lencho Vee MD #2 [place] [address] Consulting Physician Obstetrics & Gynecology 01/25/25 documented as of this encounter
--- OUTSIDE RECORDS SUMMARY | 2025-05-24 08:31 | XMS_ITS | Encounter Summary ---
Author Organization [facility] Address [address] [place] [address] Phone Care Team Providers Care Front Edger Name Role Phone Nav Hawkins MD Primary Care Provider Phillip Sampson MD Unavailable Vivien Wilson MD Unavailable Shefali Rouse APRN, CNP Unavailable [phone] Lencho Vee MD Unavailable [phone] Reason for Visit * Reason Comments Medication Refill Encounter Details Date Type Department Care Team (Late st Contact Info) Description 07/19/2020 [facility] [address] [place] [address] Nav Hawkins MD #[address] [address] Medication Refill Social History Tobacco Use Types [...] COVID-19? No / Unsure 07/21/2020 8:29 AM TEXTILE KNITTER documented as of this encounter Miscellaneous Notes * Telephone Encounter - Nav Hawkins MD - 07/22/2020 9:03 AM CST Prescription approved. Please call in ILE KNITTER * Telephone Encounter - Vee Ortiz RN [...] pancreatitis, unspecified complication status, unspecified pancreatitis type [facility] - Nav Gaitan MD 9 months ago Encounter for immunization [facility] - Kassi Núñez APN, CNP 10 months ago BPPV (benign paroxysmal positional vertigo), left [facility] - Kassi Núñez APN, CNP 1 year ago Neck pain [facility] - Nav Gaitan MD 1 year ago [facility] APN, DENTAL CLAIMS PROCESSOR Upcoming Appointments Future Appointments In 2 weeks Phillip Sampson MD [facility] 5 months Vivien Wilson MD [facility] Medical [facility] Endocrinology [facility] RAILROAD OPERATOR - Recent and Past Visits Recent Visits Date Type Provider Dept 04/24/20 Office Visit Nav Hawkins MD [facility] 10/11/19 Office Visit Kassi Dasliva APN, CHUCK [facility] 09/09/19 Office Visit Kassi Dasilva APN, CHUCK [facility] Showing recent visits within past 460 days with a meds authorizing provider and meeting all other requirements Future Appointments No visits were found meeting these conditions. Showing future appointments within next 90 days with a meds authorizing provider and meeting all other requirements ILE KNITTER documented in this encounter Plan of Treatment Upcoming Encounters Date Type Department Care Team (Late st Contact Info) Description 07/03/2025 11:00 AM TEXTILE KNITTER Office Visit [facility] Medical [facility] - Pulmonology & Sleep Medicine [facility] #2 [place] [address] Phillip Sampson MD #2 [facility] [place] [address] 07/11/2025 8:15 AM TEXTILE KNITTER Office Visit [facility] Endocrinology [facility] #2 [place] [address] Vivien Wilson MD #[address] [place] [address] 11/06/2025 7:45 AM CDT Office Visit [facility] Medical [facility] - Family Medicine [facility] #2 [place] [address] Nav Hawkins MD #[address] [place] [address] documented as of this encounter Visit Diagnoses Diagnosis Dysfunction of both eustachian tubes Dysfunction of Eustachian tube documented in this encounter Additional Health Concerns Infection Onset Date Last Indicated Resolved Time COVID - 19 05/14/2022 05/14/2022 05/24/2022 12:1 6 AM CDT Assessment Noted Time PHQ-9 Depression Total Score: 0 09/09/19 20 9:02 AM TEXTILE KNITTER documented as of this encounter Care Teams Front Edger Relationship Specialty Start Date End Date Nav Hawkins MD #2 [facility] [address] [place] [address] PCP - General Family Medicine 09/18/16 Phillip Sampson MD #2 [place] [address] Consulting Physician Pulmonary Disease 10/17/21 Vivien Wilson MD #2 [facility] [address] [place] [address] Consulting Physician Endocrinology 02/17/22 Shefali Rouse APRN, CNP #2 [facility] [address] [place] [address] Nurse Practitioner Advanced Practice Nurse 04/30/22 Lencho Vee MD #2 [place] [address] Consulting Physician Obstetrics & Gynecology 01/25/25 documented as of this encounter
--- OUTSIDE RECORDS SUMMARY | 2025-05-24 08:31 | XMS_ITS | Encounter Summary ---
Author Organization [facility] Address [address] [place] [address] Phone Care Team Providers Care Dock Pumper Name Role Phone Nav Hawkins MD Primary Care Provider [phone] Phillip Sampson MD Unavailable Vivien Wilson MD Unavailable Shefali Rouse APRN, CHARGER Unavailable [phone] Lencho Vee MD Unavailable [phone] Reason for Visit * Reason Onset Date Comments Prior Authorization 08/14/2021 Peer to Peer is needed and expires on 08/20/21, test does not meet criteria. Call Prem [phone] Encounter Details Date Type Department Care Team (Late st Contact Info) Description 08/14/2021 Telephone [facility] Outpatient [address] [place] [address] Phillip Sampson MD #2 [place] [address] Prior Authorization (Peer to Peer is needed and expires on 08/20/21, test does not meet criteria. Call Prem [phone]) Social History Tobacco Use Types Packs/Day Years [...] Review for Angeles's test expires on 08/20/21. ERS ASSISTANT * Telephone Encounter - Kae Long - 08/14/2021 10:25 AM CST Images from the original note were not included. Auth Denied-P2P offered Ordering Provider: Internal Appointment Info: Clinic: [facility] CT Clinic Provider: [facility] Appt Date/Time: Thursday 4:00 PM Payor + Plan: [place] [facility] [place] CPT/Test: CT-CHEST DIAG W/O CONTRAST 89077 Authorization denied through: [facility] Website Phone number called: [phone] Reference number / sales representative canvas products's name and time of call: Aurea at 08/14/21 at 10:30am Estimated Amount: $2,264.00 Reason for denial: Your provider ordered a special test (CT-Computerized Tomography) which is a series of X-Rays images taken from different angles around your body and uses computer processing to create cross-section images (slices) of the bones, blood vessels and soft tissues inside your body. A [facility] doctor has looked at this request using [...] to Peer review expires: 08/20/21 Case #: [id number] Ordering Physician: Phillip Sampson MD Phys. Notified? Yes via a Telephone Encounter message Peer to Peer Instructions: Phone # to call: [phone] first press #45 for [place], then press #1, & then press # 1 forPeer to Peer review. Please note that [facility] has long hold times. Do not leave a voicemail message because they will notreturn your call. If you are unable to remain on hold, please have a hotel front desk agent or oneof your staff members to wait on hold until a [facility] doctor or rep comes on the phone. Once they have come on the phone, then your tdp displays analyst or staff member can come get you to speak to them. Notification Made to Patient: Yes Call type: Outbound Contact Made: Sent Moprise Message Reason for Call: Authorization Status/Issue ERS ASSISTANT documented in this encounter Plan of Treatment Upcoming Encounters Date Type Department Care Team (Late st Contact Info) Description 07/03/2025 11:00 AM PLAYERS ASSISTANT Office Visit [facility] Medical [facility] - Pulmonology & Sleep Medicine - [place] #2 [place] [address] Phillip Sampson MD #2 [place] [address] 07/11/2025 8:15 AM PLAYERS ASSISTANT Office Visit [facility] - Endocrinology - [place] #2 [place] [address] Vivien Wilson MD #2 [facility] [address] [place] [address] 11/06/2025 7:45 AM CDT Office Visit [facility] #2 [place] [address] Nav Hawkins MD #2 [facility] [address] [place] [address] documented as of this encounter Visit Diagnoses Not on filedocumented in this encounter Additional Health Concerns Infection Onset Date Last Indicated Resolved Time COVID - 19 05/14/2022 05/14/2022 05/24/2022 12:1 6 AM CDT Assessment Noted Time PHQ-9 Depression Total Score: 0 08/07/19 21 2:07 PM PLAYERS ASSISTANT documented as of this encounter Care Teams Dock Pumper Relationship Specialty Start Date End Date Nav Hawkins MD #[address] [address] PCP - General Family Medicine 09/18/16 Phillip Sampson MD #2 [place] [address] Consulting Physician Pulmonary Disease 10/17/21 Vivien Wilson MD #[address] [address] Consulting Physician Endocrinology 02/17/22 Shefali Rouse APRN, CHARGER #2 [facility] [address] [place] [address] Nurse Practitioner Advanced Practice Nurse 04/30/22 Lencho Vee MD #2 [place] [address] Consulting Physician Obstetrics & Gynecology 01/25/25 documented as of this encounter
--- OUTSIDE RECORDS SUMMARY | 2025-05-24 08:31 | XMS_ITS | Encounter Summary ---
Author Organization [facility] Address [address] [place] [address] Phone Care Team Providers Care Ore Roaster Name Role Phone Nav Hawkins MD Primary Care Provider [phone] Phillip Sampson MD Unavailable Vivien Wilson MD Unavailable Lencho Vee MD Unavailable [phone] Reason for Visit * Reason Onset Date Comments Poison Amanda/Poison [place]/Poison Sumac Exposure 04/27 Encounter Details Date Type Department Care Team (Late st Contact Info) Description 05/24/2025 Nurse Triage [facility] [address] [place] [address] Nav Hawkins MD #[address] [address] Poison Amanda/Poison [place]/Poison [place] Exposure Social History Tobacco Use Types Packs/Day Years Used Date Smoking Tobacco: Former Cigarettes 0.5 25 0 04/20/1991 - 04/20/2016 Smokeless Tobacco: Never Alcohol Use Standard Drinks/Week Comments No 0 (1 standard drink = 0.6 oz pur e alcohol) [facility] Utilities Answer Date Recorded In the past 12 months has hulu, gas, oil, or water company threatened to [...] often do you attend chur ch or anabaptism services? More than 4 times per year 11/03/2024 Do you belong to any clubs o r organizations such as scientology groups, unions, fraternal or athletic groups, or [...] Total Score - Questions 1-9 0 03/28 [facility] - Occupational Stress Questionnaire Answer Date [...] in a usp (including now)? No 10/22/2023 Housing Stability Vital Sign Answer Geraldo e Recorded In the last 12 months, was t here a time when you were not able to pay the mortgage or rent on time? No 11/03/2024 In the past 12 months, how m any times have you moved where you were living? 0 11/03/2024 At any time in the past 12 m [facility], were you homeless or living in a usp (including now)? No 11/03/2024 Education Answer Date [...] encounter Miscellaneous Notes * Telephone Encounter - Natalia Comer RN - 05/24/2025 7:35 AM CDT SITUATION: 50 y.o. with rash/poison amanda exposure. BACKGROUND: patient contacting PCP office. ASSESSMENT: Symptom Description / Location: Patient woke up this morning. And eyes are nearly shut, Thinks she was around poison amanda, oak or sumac, and spreading to her lip. No pain, some burning. Denies SOB Her face is swollen. Treatment / Response: Benadryl last night, and baking soda/water mixture. with no relief. Worseningwhen work up Denies fever. RECOMMENDATION: Caller agreeable to highest disposition listed: Go to ED/UCC Now (or PCP Triage). Caller requesting advice/appt. Care advice provided per triage guideline. Caller verbalized understanding. - Reason for Disposition: Patient sounds very sick or weak to the triager . Protocols Used: Poison Amanda - [place] - Sumac-A-AH See care advice and disposition for Guideline. [...] st Contact Info) Description 07/03/2025 11:00 AM MACHINE SCALLOP CUTTER Office Visit [facility] Medical [facility] - Pulmonology & Sleep Medicine [facility] #2 [place] [address] Phillip Sampson MD #2 [place] [address] 07/11/2025 8:15 AM MACHINE SCALLOP CUTTER Office Visit [facility] Medical [facility] - Endocrinology - [place] #2 [place] [address] Vivien Wilson MD #[address] [address] 11/06/2025 7:45 AM CDT Office Visit [facility] [place] #[address] [place] [address] Nav Hawkins MD #[address] [address] documented as of this encounter Visit Diagnoses Not on filedocumented in this encounter Additional Health Concerns Assessment Noted Time PHQ-9 Depression Total Score: 0 04/22/20 24 8:39 AM CDT documented as of this encounter Care Teams Ore Roaster Relationship Specialty Start Date End Date Nav Hawkins MD #[address] [address] PCP - General Family Medicine 09/18/16 Phillip Sampson MD #2 [place] [address] Consulting Physician Pulmonary Disease 10/17/21 Vivien Wilson MD #[address] [address] Consulting Physician Endocrinology 02/17/22 Lencho Vee MD #2 [place] [address] Consulting Physician Obstetrics & Gynecology 01/25/25 documented as of this encounter
--- OUTSIDE RECORDS SUMMARY | 2025-05-24 08:31 | XMS_ITS | Encounter Summary ---
Author Organization [facility] Address [address] [place] [address] Phone Care Team Providers Care News Camera Person Name Role Phone Nav Hawkins MD Primary Care Provider [phone] Phillip Sampson MD Unavailable Vivien Wilson MD Unavailable Shefali Rouse APRN, CHUCK Unavailable [phone] Lencho Vee MD Unavailable [phone] Reason for Visit * Reason Onset Date Comments Prior Authorization 08/19/2021 Peer to Peer offered and expires on 08/20/2021 Encounter Details Date Type Department Care Team (Late st Contact Info) Description 08/19/2021 Telephone [facility] Outpatient [address] [place] [address] Phillip Sampson MD #2 [place] [address] Prior Authorization (Peer to Peer [...] 08/20/2021. Ordering Provider: Internal Appointment Info: Clinic: [facility] CT Clinic Provider: [email or web address] Appt Date/Time: Thursday 4:00 PM Payor + Plan: [place] [facility] [place] CPT/Test: CT-CHEST DIAG W/O CONTRAST 25639 Authorization denied through: [employer] Website Phone number called: [phone] Reference number / high school admissions representative's name and time of call: Aurea at 08/14/21 at 10:30am Estimated Amount: $2,264.00 Reason for denial: Your provider ordered a special test (CT-Computerized Tomography) which is a series of X-Rays images taken from different angles around your body and uses computer processing to create cross-section images (slices) of the bones, blood vessels and soft tissues inside your body. A [facility] doctor has looked at this request using [...] to Peer review expires: 08/20/21 Case #: [id number] Ordering Physician: Phillip Sampson MD Phys. Notified? Yes via a Telephone Encounter message sent on 08/14/2021 Peer to Peer Instructions: Phone # to call: [phone] first press #45 for [place], then press #1, & then press # 1 forPeer to Peer review. Please note that [facility] has long hold times. Do not leave a voicemail message because they will notreturn your call. If you are unable to remain on hold, please have a front end technician or oneof your staff members to wait on hold until a [facility] doctor or rep comes on the phone. Once they have come on the phone, then your hotel or motel receptionist or staff member can come get you to speak to them. ITY IMPROVEMENT MANAGER documented in this encounter Plan of Treatment Upcoming Encounters Date Type Department Care Team (Late st Contact Info) Description 07/03/2025 11:00 AM QUALITY IMPROVEMENT MANAGER Office Visit [facility] Medical [facility] - Pulmonology & Sleep Medicine [facility] #2 [place] [address] Phillip Sampson MD #2 [place] [address] 07/11/2025 8:15 AM QUALITY IMPROVEMENT MANAGER Office Visit [facility] Medical [facility] - Endocrinology - [place] #2 [place] [address] Vivien Wilson MD #[address] [address] 11/06/2025 7:45 AM CDT Office Visit [facility] - Family Medicine - [place] #2 [place] [address] Nav Hawkins MD #2 [facility] [address] [place] [address] documented as of this encounter Visit Diagnoses Not on filedocumented in this encounter Additional Health Concerns Infection Onset Date Last Indicated Resolved Time COVID - 19 05/14/2022 05/14/2022 05/24/2022 12:1 6 AM CDT Assessment Noted Time PHQ-9 Depression Total Score: 0 08/07/19 21 2:07 PM QUALITY IMPROVEMENT MANAGER documented as of this encounter Care Teams News Camera Person Relationship Specialty Start Date End Date Nav Hawkins MD #2 [facility] [address] [place] [address] PCP - General Family Medicine 09/18/16 Phillip Sampson MD #2 [place] [address] Consulting Physician Pulmonary Disease 10/17/21 Vivien Wilson MD #2 [facility] [address] [place] [address] Consulting Physician Endocrinology 02/17/22 Shefali Rouse APRN, FIELD PROFESSIONAL #2 [facility] [address] [place] [address] Nurse Practitioner Advanced Practice Nurse 04/30/22 Lencho Vee MD #2 [place] [address] Consulting Physician Obstetrics & Gynecology 01/25/25 documented as of this encounter
== END 2025-05-24 08:40 | disposition home or self-care (01) ==
PROVIDERS: Emergency Provider Nurse Practitioner; PCP Internal Medicine
DX: L25.9 Unspecified contact dermatitis, unspecified cause (principal); I10 Essential (primary) hypertension; E11.9 Type 2 diabetes mellitus without complications; Z79.84 Long term (current) use of oral hypoglycemic drugs; E78.00 Pure hypercholesterolemia, unspecified; K21.9 Gastro-esophageal reflux disease without esophagitis; Z95.5 Presence of coronary angioplasty implant and graft; Z79.82 Long term (current) use of aspirin
CPT/HCPCS: 99213; G0463